=== PATIENT | female | born 1960 | race Caucasian/White ===

== ENCOUNTER 2017-03-09 16:32 | Emergency (ER) | payer MEDICARE ==
[~2017-03-09] VITALS: Ht 170.2 cm; Wt 117.9 kg
[~2017-03-09 16:32] MED LIST: ABILIFY; AC325T PO; AMLO10TA4 PO; AMLO5TAB2 PO; ARIP10TA2 PO; ARPZ10T PO; BACL20TA PO; BUPR150T7 PO; CARI250T PO; CEPH250T PO; CEPH500C PO; CHOL4PAC19 PO; CLIN-62 PO; CLON1TAB3 PO; DIAZ10TA PO; DIAZ10TA3 PO; DIPH1TAB25 PO; DOXE100C4 PO; DOXE10CA PO; DULO60CA6; FLUC100T PO; FLUV100T3 PO; GABA600T2; GBPN100C PO; GLIM4TAB PO; GLMP4T; GUAN1TAB PO; GUAN1TAB17 PO; HYDR-2890 PO; HYDR-3583 PO; HYDR-3720; HYDR-3820 PO; LORA1TAB; LORA1TAB PO; LORA2TAB PO; LOSA100T28 PO; LOSA50TA6 PO; MECL12.579 PO; MUPI22OI TOP; NAPR-243 PO; NAPR500T PO; OXCA150T3 PO; OXYC-197 PO; PIOG30TA26 PO; PRAZ5CAP2 PO; PRD20T PO; SULF-222 PO; SULF1TAB34 PO; TR1C15 TOP; TRAM50TA2 PO; TRM50T PO; VENL150T4 PO; ZLP10T; ZOLP10TA5 PO; [UNRECOGNIZED DRUG - CODE] PO
--- NOTE | 2017-03-09 17:10 | ED Integumentary General ---
General Chief Complaint: Skin/Wound Problems Stated Complaint: KNOTS ON HEAD Nursing Triage Note: TO ROOM 08 WITH COMPLAINTS OF "knots" ON HER HEAD. CAME HERE YESTERDAY BUT WE WERE TO BUSY AND SHE WENT TO [facility] AND STATES THEY DID NOTHING FOR HER. HER DAUGHTER SQUEEZED THEM AND GOT PUSS OUT OF THEM AND SHE THINKS SHE NEED AN ANTIBIOTIC. Source: patient Exam Limitations: no limitations History of Present Illness Time seen by provider: 17:09 Initial Comments 57-year-old female patient presents to the emergency department complaints of knots on her scalp. Patient reports she was seen by [facility] yesterday and was told to follow up with her primary care physician as an outpatient. Reports daughter squeezed "pus" out of them and she thinks that she may need an antibiotic at this time. Timing/Duration: other (onset 3-4 days ago. Reports symptoms improved today.) Location: scalp Possible Cause: no cause identified Allergies and Home Medications Allergies Coded Allergies: gabapentin (Unverified Allergy, Unknown, 06/03/14) morphine (Unverified Allergy, Unknown, 06/03/14) Home Medications Amlodipine Besylate 5 Mg Tablet, 5 MG PO DAILY, #30 for blood pressure Prescribed by: JEANNE COOPER on 04/21/16 1003 Baclofen 20 Mg Tablet, 20 MG PO TID PRN for MUSCLE SPASMS, (Reported) Cephalexin 500 Mg Capsule, 500 MG PO QID, #28 Prescribed by: JEANNE COOPER on 04/21/16 1003 Clindamycin HCl 300 Mg Capsule, 300 MG PO Q6H, #28 Ref 0 Prescribed by: MARK ANTHONY BENITEZ on 03/09/17 1722 Doxepin HCl 100 Mg Capsule, 200 MG PO HS, (Reported) TAKES 2 (100MG) CAPSULES Doxepin Hcl 100 Mg Capsule, 100 MG PO BID PRN for SKIN CONDITION/BP, (Reported) Fluconazole 100 Mg Tablet, 100 MG PO DAILY, #7 Prescribed by: JEANNE COOPER on 04/21/16 1003 Fluvoxamine Maleate 100 Mg Tablet, 100 MG PO HS, (Reported) Glimepiride 4 Mg Tablet, 4 MG PO BID, (Reported) Hydrocodone/Acetaminophen 1 Each Tablet, 1 TAB PO Q4H PRN for PAIN, (Reported) Lorazepam 2 Mg Tablet, 2 MG PO 5XD PRN for ANXIETY, (Reported) Losartan Potassium 100 Mg Tablet, 100 MG PO DAILY, (Reported) Naproxen 500 Mg Tablet, 500 MG PO BID, #60 Prescribed by: JEANNE COOPER on 04/21/16 1003 Pioglitazone HCl 30 Mg Tablet, 30 MG PO DAILY, (Reported) Prazosin HCl 5 Mg Capsule, 15 MG PO HS, (Reported) TAKES 3 (5MG) CAPSULES Tramadol HCl 50 Mg Tablet, 50 MG PO Q6H PRN for PAIN, (Reported) Constitutional: No chills, No fever, No malaise EENTM: no symptoms reported Respiratory: no symptoms reported Cardiovascular: no symptoms reported Skin: see HPI Psychiatric/Neurological: Denies Headache All Other Systems Reviewed Negative Unless Noted: Yes (Negative excepted noted.) Past Qqkjzjy-Vcwiku-Smcpnh Hx Patient Social History Alcohol Use: Denies Use Recreational Drug Use: No Smoking Status: Never a Smoker Recent Foreign Travel: No Contact w/Someone Who Travel: No Recent Infectious Disease Expo: No Recent Hopitalizations: Yes (GASTRIC BYPASS SURG IN [facility] 2001) Immunizations Up To Date Tetanus Booster (TDap): Unknown Date of Pneumonia Vaccine: Apr 18, 2014 Date of Influenza Vaccine: Apr 16, 2014 Seasonal Allergies Seasonal Allergies: Yes (environmental) Surgeries History of Surgeries: Yes (GASTRIC BYPASS/LEFT WRIST FX) Surgeries: Abdominal, Gallbladder, Orthopedic, Tonsillectomy Respiratory History of Respiratory Disorde: No Currently Using CPAP: No Currently Using BIPAP: No Cardiovascular History of Cardiac Disorders: Yes Cardiac Disorders: Hypertension Neurological History of Neurological Disord: Yes 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 System Hx 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 Disorders: No HIV/AIDS: No 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 Disorders: Denies 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 Genitourinary Genitourinary Disorders: UTI-Chronic Gastrointestinal History of Gastrointestinal Di: Yes (SIDE EFFECTS FROM GASTRIC BYPASS) Gastrointestinal Disorders: Gastrointestinal Bleed, Chronic Diarrhea Musculoskeletal History of Musculoskeletal Dis: Yes (lt wrist with external imobilizer hardware ) Musculoskeletal Disorders: Arthritis, Fibromyalgia Endocrine History of Endocrine Disorders: Yes Endocrine Disorders: Diabetes, Non-Insulin dep HEENT HEENT Disorders: Tinnitis Loss of Vision: Denies Hearing Impairment: Denies Cancer History of Cancer: No Cancer: Cervical Psychosocial History of Psychiatric Problem: Yes Behavioral Health Disorders: Sleep Difficulties, Anxiety, Depression Integumentary History of Skin or Integumenta: Yes (chronic skin rash) Blood Transfusions History of Blood Disorders: Yes Adverse Reaction to a Blood Tr: No Reviewed Nursing Assessment Reviewed/Agree w Nursing PMH: Yes Family Medical History Significant Family History: No Pertinent Family Hx Physical Exam Vital Signs Vital Sign - Last 12Hours 03/09/17 16:40 Temp 98.0 Pulse 80 Resp 18 B/P (MAP) 183/90 Pulse Ox 97 Capillary Refill : Less Than 3 Seconds General Appearance: WD/WN, no apparent distress HEENT: PERRL/EOMI, pharynx normal Neck: non-tender, full range of motion, supple, lymphadenopathy (L) (left postauricular lymphadenopathy with mild tenderness.) Cardiovascular: normal peripheral pulses, regular rate, rhythm, no murmur Respiratory: lungs clear, normal breath sounds, no respiratory distress, no accessory muscle use Extremities: no pedal edema, normal capillary refill Neurologic/Psychiatric: alert, normal mood/affect, oriented x 3 Skin: normal color, warm/dry, other (several hilar cysts noted of the superior scalp without evidence of open wound or drainage. Mild erythema noted.) Skin Problem Location: scalp Skin Problem Character: other (several hilar cysts noted of the superior scalp without evidence of open wound or drainage. Mild erythema noted.) Progress/Results/Core Measures Results/Orders My Orders Orders - MARK ANTHONY BENITEZ Rx-Clindamycin Capsule (Rx-Cleocin Capsu (03/09/17 17:23) Vital Signs/I&O Vital Sign - Last 12Hours 03/09/17 03/09/17 16:40 17:30 Temp 98.0 98.0 Pulse 80 80 Resp 18 18 B/P (MAP) 183/90 Pulse Ox 97 97 Blood Pressure Mean: 121 Departure Communication (Admissions) Progress Notes Patient seen and evaluated. Plan for discharge to home with oral Bactrim. Patient instructed to follow-up with her primary care physician, general surgeon , or stock sheets cleaner inspector of her choice for removal of the pilar cyst when swelling is improved. Impression Impression: Primary Impression: Pilar cysts Disposition: 01 HOME, SELF-CARE Condition: Improved Departure-Patient Inst. Decision time for Depature: 17:21 Referrals: JEANNE COOPER DO (PCP/Family) Primary Care Physician Patient Instructions: Epidermal Cyst (DC) Add. Discharge Instructions: All discharge instructions reviewed with patient and/or family. Voiced understanding. Medications as instructed. Tylenol extra strength over-the- counter as directed for pain. Ibuprofen 800 mg by mouth every 8 hours as needed for pain. Ice packs or heating pads as needed for pain and swelling. Shower with antibacterial soap. Follow-up with your primary care physician, stock sheets cleaner inspector, or general surgeon of choice for cyst removal. Call for appointment time. Return to the emergency department for worsened symptoms or any other concerns. Scripts Clindamycin HCl (Cleocin HCl) 300 Mg Capsule 300 MG PO Q6H, #28 CAP 0 Refills Prov: MARK ANTHONY BENITEZ 03/09/17 Work/School Note: Work Release Form Date Seen in the Emergency Department: Mar 09, 2017 Return to Work: Mar 10, 2017 Restrictions: No Restrictions MARK ANTHONY BENITEZ Mar 09, 2017 17:09
[2017-03-09] MEDS ORDERED: CLIN300C3 PO (17:22)
[2017-03-09] MEDS ORDERED: RX-CLINDAMYCIN 150 MG (CLEOCIN) CAP PPK#4 PO STA (17:23)
[2017-03-09 17:30] VITALS: BP 183/90
== END 2017-03-09 17:30 | disposition home or self-care (01) ==
LOC: EDUNIT# 16:32 → ER 16:34
DX: L72.11 Pilar cyst (principal); I10 Essential (primary) hypertension; M19.90 Unspecified osteoarthritis, unspecified site; E11.9 Type 2 diabetes mellitus without complications; F41.9 Anxiety disorder, unspecified; F32.9 Major depressive disorder, single episode, unspecified; Z87.19 Personal history of other diseases of the digestive system; Z87.440 Personal history of urinary (tract) infections; Z79.84 Long term (current) use of oral hypoglycemic drugs; Z98.84 Bariatric surgery status; Z90.89 Acquired absence of other organs
CPT/HCPCS: 99281

== ENCOUNTER 2018-08-02 13:31 | Inpatient (IN) | payer MEDICARE ==
[2018-07-31 18:45] VITALS: BP 175/90
[2018-08-02] VITALS (9 sets, daily range): BP systolic 118–167; BP diastolic 59–113
[~2018-08-02] VITALS: Ht 170.2 cm; Wt 114.8 kg
[2018-08-02] MEDS ORDERED: KETOROLAC 60 MG/2 ML VIAL IM ONE (13:45)
[2018-08-02] MEDS ORDERED: ORPHENADRINE 60 MG/2 ML (NORFLEX) AMP IM ONE (13:45)
[2018-08-02] MEDS ORDERED: HYDROcodone/APAP 10 MG/325 MG (LORTAB) TAB PO ONE ×3 (13:45→22:45)
--- NOTE | 2018-08-02 14:40 | Diagnostic Imaging Report ---
PROCEDURE: CT lumbar spine without contrast. TECHNIQUE: Multiple contiguous axial images were obtained through the lumbar spine without the use of intravenous contrast. Sagittal and coronal reformations were then performed. INDICATION: Back pain for two days. No recent injury. Examination somewhat limited due to the large body habitus and motion. There is normal height and alignment of the lumbar vertebral bodies. There is mild disc space narrowing at L4-L5 and L5-S1. No disc herniation or significant central canal stenosis is evident at any level. There is no mass or acute bony abnormality. There is no soft tissue mass. IMPRESSION: There are degenerative changes present with no bony stenosis seen. There is no acute abnormality evident. Dictated by: Dictated on workstation # [id number]
[2018-08-02] MEDS ORDERED: NS IV 1000 ML 1,000 ML IV SCH ×2 (15:15→20:00)
--- NOTE | 2018-08-02 15:15 | NUR ---
CALLED TO ROOM BY FAMILY PATIENT DIAPHERTIC AND CONFUSED. PLACED ON MONITOR.
[2018-08-02] MEDS ORDERED: NALOXONE 0.4 MG/ML 1 ML (NARCAN) VIAL ONE (15:24)
[2018-08-02 15:29] LABS: BASOPHILS % (AUTO) 0 % (0-10); EOSINOPHILS # (AUTO) 0.2 10^3/uL (0.0-0.3); EOSINOPHILS % (AUTO) 3 % (0-10); HEMATOCRIT 38 % (35-52); HEMOGLOBIN 12.9 G/DL (11.5-16.0); LYMPHOCYTES # (AUTO) 1.4 X 10^3 (1.0-4.0); LYMPHOCYTES % (AUTO) 27 % (12-44); MEAN CORPUSCULAR HEMOGLOBIN 28 PG (25-34); MEAN CORPUSCULAR HGB CONC 34 G/DL (32-36); MEAN CORPUSCULAR VOLUME 83 FL (80-99); MEAN PLATELET VOLUME 11.9 FL (7.4-10.4); MONOCYTES # (AUTO) 0.5 X 10^3 (0.0-1.0); MONOCYTES % (AUTO) 11 % (0-12); NEUTROPHILS # (AUTO) 2.9 X 10^3 (1.8-7.8); NEUTROPHILS % (AUTO) 58 % (42-75); PLATELET COUNT 231 10^3/uL (130-400); RED CELL DISTRIBUTION WIDTH 15.4 % (10.0-14.5); WHITE BLOOD COUNT 4.9 10^3/uL (4.3-11.0)
[2018-08-02] MEDS ORDERED: NALOXONE 0.4 MG/ML 1 ML (NARCAN) VIAL IV ONE (15:30)
[2018-08-02 15:43] LABS: ALANINE AMINOTRANSFERASE 15 U/L (0-55); ALBUMIN 4.2 GM/DL (3.2-4.5); ALKALINE PHOSPHATASE 92 U/L (40-136); BILIRUBIN,TOTAL 0.3 MG/DL (0.1-1.0); BUN/CREATININE RATIO 18; CALCIUM 9.4 MG/DL (8.5-10.1); CARBON DIOXIDE 20 MMOL/L (21-32); CHLORIDE 108 MMOL/L (98-107); CREATININE SERUM 0.87 MG/DL (0.60-1.30); GFR ESTIMATED > 60; GLUCOSE 318 MG/DL (70-105); POTASSIUM 4.2 MMOL/L (3.6-5.0); SODIUM 139 MMOL/L (135-145); TOTAL PROTEIN 6.8 GM/DL (6.4-8.2)
[2018-08-02] MEDS ORDERED: ZIPRASIDONE 20 MG INJ (GEODON) VIAL IM ONE (15:45)
--- NOTE | 2018-08-02 15:45 | NUR ---
STRAIGHT CATH FOR URINE
[2018-08-02] MEDS ORDERED: WATER (STERILE) FOR INJECTION 10 ML ONE ×2 (15:46→16:25)
[2018-08-02 15:51] LABS: ABG BASE EXCESS -4.3 MMOL/L (-2.5-2.5); ABG OXYGEN SATURATION 98 % (94-100); ABG PCO2 48 MMHG (35-45); ABG PO2 120 MMHG (79-93); ABG TCO2 23.2 MMOL/L (21.0-31.0)
[2018-08-02] MEDS ORDERED: ONDANSETRON 4 MG/2 ML (SDV) Z0FRAN ONE (15:53)
[2018-08-02 15:55] LABS: ABG PH 7.27 (7.37-7.43); ALLENS TEST YES-POS; INSPIRED O2 4; PATIENT TEMP 96.9; VENTILATOR NO
--- NOTE | 2018-08-02 15:58 | NUR ---
AFTER NARCAN GIVEN EYES OPENS AND CON'T TO ASK WHAT IS GOING ON CON'T TO REPEAT.
--- NOTE | 2018-08-02 15:59 | NUR ---
ROSA GIVEN FOR FEELING LIKE SHE MAY VOMIT
[2018-08-02 16:03] LABS: BILIRUBIN,URINE NEGATIVE (NEGATIVE); CLARITY,URINE CLEAR; COLOR,URINE YELLOW; GLUCOSE, URINE (UA) 4+ (NEGATIVE); KETONES,URINE NEGATIVE (NEGATIVE); LEUKOCYTE ESTERASE ,URINE NEGATIVE (NEGATIVE); NITRITE,URINE NEGATIVE (NEGATIVE); PH,URINE 5 (5-9); PROTEIN,URINE 2+ (NEGATIVE); UROBILINOGEN,URINE NORMAL (NORMAL)
[2018-08-02 16:16] LABS: AMPHETAMINE SCREEN, URINE NEGATIVE (NEGATIVE); BARBITURATE SCREEN URINE NEGATIVE (NEGATIVE); BENZODIAZEPINES SCREEN URINE POSITIVE (NEGATIVE); CANNABINOID SCREEN, URINE NEGATIVE (NEGATIVE); COCAINE SCREEN URINE NEGATIVE (NEGATIVE); METHADONE STAT NEGATIVE (NEGATIVE); METHAMPHETAMINE SCREEN URINE S NEGATIVE (NEGATIVE); OPIATE SCREEN URINE POSITIVE (NEGATIVE); OXYCODONE STAT NEGATIVE (NEGATIVE); PROPOXYPHENE STAT NEGATIVE (NEGATIVE); TRICYCLIC ANTIDEPRESSANTS SCRE POSITIVE (NEGATIVE)
--- NOTE | 2018-08-02 16:22 | NUR ---
TO CT PER CART ACCOMPIED BY STAFF
--- NOTE | 2018-08-02 16:30 | NUR ---
CON'T TO RESTLESS IN CT MORE YESSENIA ORDERD
[2018-08-02] MEDS: ZIPRASIDONE 20 MG INJ (GEODON) VIAL IM ONE (16:35)
[2018-08-02 16:40] LABS: BACTERIA,URINE NEGATIVE /HPF; RBC,URINE RARE /HPF; SQUAMOUS EPITHELIAL CELL,UR 0-2 /HPF
--- NOTE | 2018-08-02 16:45 | NUR ---
BACK FROM CT DAUGHTER AT BEDSIDE PATIENT RELAXED APPEARS RESTING NOW HR 61 97% 4L 133/76
--- NOTE | 2018-08-02 16:56 | ED Back Pain ---
General Chief Complaint: Back Problems Stated Complaint: BACK PAIN Nursing Triage Note: TO ED PER EMS C/O SEVER BACK PAIN Nursing Sepsis Screen: No Definite Risk Source of Information: Patient Exam Limitations: No Limitations History of Present Illness Date Seen by Provider: Aug 02, 2018 Time Seen by Provider: 13:38 Initial Comments 58-year-old female who was brought to the emergency room by [facility] for complaints of severe low back pain that radiates to her right leg. She reports that this pain started 2 days ago and has progressively gotten worse. She reports that she's had bulging disc the past and sciatica and reports it just feels like sciatic nerve patient. She is on baclofen for chronic low back pain. She reports taking Tylenol and ibuprofen without relief. She was able to stand up from the EMS cart and transferred to the bed without difficulty. She denies loss of bowel or bladder or saddle paresthesia. She is yelling out in pain. Location: Lumbar Spine Timing/Duration: 1-2 Days Severity: Severe Pain/Injury Location: Back Radiation: Upper Legs (right upper legs) Associated Symptoms: lower back pain; No loss of bladder control, No loss of bowel control Allergies and Home Medications Allergies Coded Allergies: gabapentin (Unverified Allergy, Unknown, 06/03/14) morphine (Unverified Allergy, Unknown, 06/03/14) Home Medications Amlodipine Besylate 5 Mg Tablet, 5 MG PO DAILY for blood pressure Prescribed by: JEANNE COOPER on 04/21/16 1003 Baclofen 20 Mg Tablet, 20 MG PO TID PRN for MUSCLE SPASMS, (Reported) Cephalexin 500 Mg Capsule, 500 MG PO QID Prescribed by: JEANNE COOPER on 04/21/16 1003 Clindamycin HCl 300 Mg Capsule, 300 MG PO Q6H Prescribed by: MARK ANTHONY BENITEZ on 03/09/17 1722 Doxepin HCl 100 Mg Capsule, 200 MG PO HS, (Reported) TAKES 2 (100MG) CAPSULES Doxepin Hcl 100 Mg Capsule, 100 MG PO BID PRN for SKIN CONDITION/BP, (Reported) Fluconazole 100 Mg Tablet, 100 MG PO DAILY Prescribed by: JEANNE COOPER on 04/21/16 1003 Fluvoxamine Maleate 100 Mg Tablet, 100 MG PO HS, (Reported) Glimepiride 4 Mg Tablet, 4 MG PO BID, (Reported) Hydrocodone/Acetaminophen 1 Each Tablet, 1 TAB PO Q4H PRN for PAIN, (Reported) Lorazepam 2 Mg Tablet, 2 MG PO 5XD PRN for ANXIETY, (Reported) Losartan Potassium 100 Mg Tablet, 100 MG PO DAILY, (Reported) Naproxen 500 Mg Tablet, 500 MG PO BID Prescribed by: JEANNE COOPER on 04/21/16 1003 Pioglitazone HCl 30 Mg Tablet, 30 MG PO DAILY, (Reported) Prazosin HCl 5 Mg Capsule, 15 MG PO HS, (Reported) TAKES 3 (5MG) CAPSULES Tramadol HCl 50 Mg Tablet, 50 MG PO Q6H PRN for PAIN, (Reported) Patient Home Medication List Home Medication List Reviewed: Yes Review of Systems Constitutional: no symptoms reported, see HPI Musculoskeletal: see HPI, back pain (low back pain) All Other Systems Reviewed Negative Unless Noted: Yes Past Fqnsotj-Zmmopg-Gosleu Hx Past Med/Social Hx: Reviewed Nursing Past Med/Soc Hx Patient Social History Alcohol Use: Denies Use Recreational Drug Use: Yes (METHAMPHETAMINES --DENIES IV USE) Smoking Status: Never a Smoker Recent Foreign Travel: No Contact w/Someone Who Travel: No Recent Infectious Disease Expo: No Recent Hopitalizations: Yes (GASTRIC BYPASS SURG IN [facility] 2001) Immunizations Up To Date Tetanus Booster (TDap): Unknown Date of Pneumonia Vaccine: Apr 18, 2014 Date of Influenza Vaccine: Apr 16, 2014 Seasonal Allergies Seasonal Allergies: Yes (environmental) Past Medical History Surgeries: Yes (GASTRIC BYPASS/LEFT WRIST FX) Abdominal, Gallbladder, Orthopedic, Tonsillectomy Respiratory: No Currently Using CPAP: No Currently Using BIPAP: No Cardiac: Yes Hypertension Neurological: Yes 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 Disorders: No 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 HIV/AIDS: No UTI-Chronic Gastrointestinal: Yes (SIDE EFFECTS FROM GASTRIC BYPASS) Gastrointestinal Bleed, Chronic Diarrhea Musculoskeletal: Yes (lt wrist with external imobilizer hardware) Arthritis, Fibromyalgia Endocrine: Yes Diabetes, Non-Insulin dep Tinnitis Loss of Vision: Denies Hearing Impairment: Denies Cancer: No Cervical Psychosocial: Yes Sleep Difficulties, Anxiety, Depression Integumentary: Yes (chronic skin rash) Blood Disorders: Yes Adverse Reaction/Blood Tranf: No Family Medical History Reviewed Nursing Family Hx No Pertinent Family Hx Physical Exam Vital Signs Vital Signs - First Documented 07/31/18 08/02/18 18:45 15:24 Temp 96.6 Pulse 86 Resp 20 B/P (MAP) 175/90 (118) Pulse Ox 96 O2 Delivery Room Air O2 Flow Rate 4.00 Capillary Refill : Less Than 3 Seconds Height, Weight, BMI Height: 5'7.00" Weight: 245lbs. 8.0oz. 111.464226en; 40.3 BMI Method:Stated General Appearance: No Apparent Distress, WD/WN Cardiovascular: Regular Rate, Rhythm, No Edema, No Gallop, No JVD, No Murmur, Normal Peripheral Pulses Respiratory: Chest Non Tender, Lungs Clear, Normal Breath Sounds, No Accessory Muscle Use, No Respiratory Distress Back: Normal Inspection, No CVA Tenderness, Vertebral Tenderness (lumbar vertebral tenderness) Extremity: Normal Capillary Refill, Normal Inspection, Normal Range of Motion, Non Tender, No Calf Tenderness, No Pedal Edema, Calf Tenderness Neurologic/Psychiatric: Alert, Oriented x3, Normal Mood/Affect Skin: Normal Color, Warm/Dry Progress/Results/Core Measures Results/Orders Lab Results Laboratory Tests Test 08/02/18 15:14 08/02/18 15:34 08/02/18 15:48 Range/Units White Blood Count 4.9 4.3-11.0 10^3/uL Red Blood Count 4.62 4.35-5.85 10^6/uL Hemoglobin 12.9 11.5-16.0 G/DL Hematocrit 38 35-52 % Mean Corpuscular Volume 83 80-99 FL Mean Corpuscular Hemoglobin 28 25-34 PG Mean Corpuscular Hemoglobin Concent 34 32-36 G/DL Red Cell Distribution Width 15.4 H 10.0-14.5 % Platelet Count 231 130-400 10^3/uL Mean Platelet Volume 11.9 H 7.4-10.4 FL Neutrophils (%) (Auto) 58 42-75 % Lymphocytes (%) (Auto) 27 12-44 % Monocytes (%) (Auto) 11 0-12 % Eosinophils (%) (Auto) 3 0-10 % Basophils (%) (Auto) 0 0-10 % Neutrophils # (Auto) 2.9 1.8-7.8 X 10^3 Lymphocytes # (Auto) 1.4 1.0-4.0 X 10^3 Monocytes # (Auto) 0.5 0.0-1.0 X 10^3 Eosinophils # (Auto) 0.2 0.0-0.3 10^3/uL Basophils # (Auto) 0.0 0.0-0.1 10^3/uL Sodium Level 139 135-145 MMOL/L Potassium Level 4.2 3.6-5.0 MMOL/L Chloride Level 108 H 98-107 MMOL/L Carbon Dioxide Level 20 L 21-32 MMOL/L Anion Gap 11 5-14 MMOL/L Blood Urea Nitrogen 16 7-18 MG/DL Creatinine 0.87 0.60-1.30 MG/DL Estimat Glomerular Filtration Rate > 60 BUN/Creatinine Ratio 18 Glucose Level 318 H 70-105 MG/DL Calcium Level 9.4 8.5-10.1 MG/DL Corrected Calcium 9.2 8.5-10.1 MG/DL Total Bilirubin 0.3 0.1-1.0 MG/DL Aspartate Amino Transf (AST/SGOT) 19 5-34 U/L Alanine Aminotransferase (ALT/SGPT) 15 0-55 U/L Alkaline Phosphatase 92 40-136 U/L Total Protein 6.8 6.4-8.2 GM/DL Albumin 4.2 3.2-4.5 GM/DL Blood Gas Puncture Site RT RADIAL Blood Gas Patient Temperature 96.9 Arterial Blood pH 7.27 *L 7.37-7.43 Arterial Blood Partial Pressure CO2 48 H 35-45 MMHG Arterial Blood Partial Pressure O2 120 H 79-93 MMHG Arterial Blood HCO3 22 L 23-27 MMOL/L Arterial Blood Total CO2 23.2 21.0-31.0 MMOL/L Arterial Blood Oxygen Saturation 98 94-100 % Arterial Blood Base Excess -4.3 L -2.5-2.5 MMOL/L Luis A Test YES-POS Blood Gas Ventilator Setting NO Blood Gas Inspired Oxygen 4 Urine Color YELLOW Urine Clarity CLEAR Urine pH 5 5-9 Urine Specific [place] 1.020 1.016-1.022 Urine Protein 2+ H NEGATIVE Urine Glucose (UA) 4+ H NEGATIVE Urine Ketones NEGATIVE NEGATIVE Urine Nitrite NEGATIVE NEGATIVE Urine Bilirubin NEGATIVE NEGATIVE Urine Urobilinogen NORMAL NORMAL MG/DL Urine Leukocyte Esterase NEGATIVE NEGATIVE Urine RBC (Auto) 1+ H NEGATIVE Urine RBC RARE /HPF Urine WBC NONE /HPF Urine Squamous Epithelial Cells 0-2 /HPF Urine Crystals NONE /LPF Urine Bacteria NEGATIVE /HPF Urine Casts NONE /LPF Urine Mucus NEGATIVE /LPF Urine Culture Indicated NO Urine Opiates Screen POSITIVE H NEGATIVE Urine Oxycodone Screen NEGATIVE NEGATIVE Urine Methadone Screen NEGATIVE NEGATIVE Urine Propoxyphene Screen NEGATIVE NEGATIVE Urine Barbiturates Screen NEGATIVE NEGATIVE Ur Tricyclic Antidepressants Screen POSITIVE H NEGATIVE Urine Phencyclidine Screen NEGATIVE NEGATIVE Urine Amphetamines Screen NEGATIVE NEGATIVE Urine Methamphetamines Screen NEGATIVE NEGATIVE Urine Benzodiazepines Screen POSITIVE H NEGATIVE Urine Cocaine Screen NEGATIVE NEGATIVE Urine Cannabinoids Screen NEGATIVE NEGATIVE My Orders Orders - BERNOT,RACH Orphenadrine Injection (Norflex Injectio (08/02/18 13:45) Ketorolac Injection (Toradol Injection) (08/02/18 13:45) Hydrocodone/Apap 10/325 Tablet (Lortab 1 (08/02/18 13:45) Ct Lumbar Spine Wo (08/02/18 13:39) Ns Iv 1000 Ml (Sodium Chloride 0.9%) (08/02/18 15:15) Cbc With Automated Diff (08/02/18 15:05) Comprehensive Metabolic Panel (08/02/18 15:05) Drug Screen Stat (Urine) (08/02/18 15:05) Ua Culture If Indicated (08/02/18 15:05) Ekg Tracing (08/02/18 15:15) Naloxone Injection (Narcan Injection) (08/02/18 15:30) Naloxone Injection (Narcan Injection) (08/02/18 15:24) Arterial Blood Gas (08/02/18 15:33) Ct Head Wo-R/O Stroke (08/02/18 15:38) Ziprasidone Injection (Geodon Injection) (08/02/18 15:45) Water (Sterile) For Injection (Sterile W (08/02/18 15:46) Ondansetron Injection (Zofran Injectio (08/02/18 15:53) Ziprasidone Injection (Geodon Injection) (08/02/18 16:24) Water (Sterile) For Injection (Sterile W (08/02/18 16:25) Medications Given in ED Current Medications Medications Dose Ordered Sig/Raquel Route Start Time Stop Time Status Last Admin Dose Admin Naloxone HCl 0.4 mg ONCE ONCE IV 08/02/18 15:30 08/02/18 15:31 DC 08/02/18 15:30 0.4 MG Ondansetron HCl 4 mg STK-MED ONCE .ROUTE 08/02/18 15:53 08/02/18 15:58 DC 08/02/18 16:01 8 MG Sterile Water 10 ml @ ud STK-MED ONCE .ROUTE 08/02/18 15:46 08/02/18 15:50 DC 08/02/18 15:55 1.2 MLS/HR Ziprasidone 20 mg STK-MED ONCE IM 08/02/18 15:45 08/02/18 15:50 DC 08/02/18 15:53 10 MG Ziprasidone 20 mg STK-MED ONCE IM 08/02/18 16:24 08/02/18 16:29 DC 08/02/18 16:35 20 MG Vital Signs/I&O 07/31/18 08/02/18 08/02/18 18:45 14:59 15:24 Temp 96.6 96.9 Pulse 86 81 60 Resp 20 18 18 B/P (MAP) 175/90 (118) 119/87 (98) 135/65 (88) Pulse Ox 96 98 100 O2 Delivery Room Air Room Air Nasal Cannula O2 Flow Rate 4.00 Blood Pressure Mean: 88 Progress Progress Note : Time: 13:38 Progress Note Hydrocodone, Toradol, Norflex was ordered at this time. 1520: The patient is back from CT at this time. She is hard to arouse and is having sonorous respirations. IV, lab work urine drug screen has been ordered at this time. She will also be given Narcan to see if we can reverse anything she might have taken at home. Daughter is at bedside and reports that she's had a long history of opioid use but has not been prescribed anything for at least 6 months that she knows of. She is currently only on baclofen for her chronic back pain and lorazepam, fluvoxamine, clonidine for her anxiety. She has history of diabetes and is on pioglitazone. 1545: The Narcan has seemed to work. The patient is awake at this time and she is thrashing violently in bed and pulling at IV lines a monitoring equipment. Geodon has been ordered at this time and we will also be getting the patient over to CT for images of her head. 1715: I have discussed the case with Dr. Barney at this time and she agrees to admit the patient to ICU for closer observation. Diagnostic Imaging Diagonstic Imaging: CT Plain Films/CT/US/NM/MRI: head, other (l spine) Comments NAME: SAMGERONIMO [facility] REC#: [id number] PHYSICIAN: RACH BAEZ CC: RACH BAEZ; CAROL ELLIS DO Page 2 of 2 RADIOLOGY REPORT [facility], [place], [place] CC: RACH BAEZ; CAROL ELLIS DO Page 1 of 1 RADIOLOGY REPORT NAME: GERONIMO VARGAS [facility] REC#: [id number] PT STATUS: REG ER : 1960 PHYSICIAN: RACH BAEZ ADMIT DATE: 08/02/18/ER Signed Date of Exam: 08/02/18 CT HEAD WO-R/O STROKE PROCEDURE: CT head wo r/o stroke. TECHNIQUE: Multiple contiguous axial images were obtained through the brain without the use of intravenous contrast. INDICATION: Altered mental status. COMPARISON: Head CT performed on 08/22/2012. FINDINGS: BRAIN: No parenchymal hemorrhage, midline shift or mass effect. [place]-white matter differentiation is intact. No acute infarct. Mild periventricular and subcortical low-density white matter changes. Mild prominence of the ventricles and Sulci consistent with cortical and cerebellar parenchymal volume loss. EXTRA-AXIAL SPACES: No subdural or epidural collections. ORBITS AND PARANASAL SINUSES: Visualized orbits and globes are intact. Visualized paranasal sinuses and mastoid air cells are clear. CALVARIUM AND SOFT TISSUES: The calvarium is intact. No fractures or suspicious bony lesions. The extracranial soft tissues are unremarkable. IMPRESSION: No acute intracranial pathology. No significant change from prior. Dictated by: Dictated on workstation # [id number] Dict: 08/02/181653 Trans: 08/02/181727 Interpreted by: CAROL ELLIS DO Electronically signed by: CAROL ELLIS DO 08/02/181727 NAME: GERONIMO VARGAS [facility] REC#: [id number] PHYSICIAN: RACH BAEZ CC: RACH BAEZ; JOCELINE BUTT MD Page 1 of 1 RADIOLOGY REPORT [facility], [place] CC: RACH BAEZ; JOCELINE BUTT MD Page 1 of 1 RADIOLOGY REPORT NAME: GERONIMO VARGAS [facility] REC#: [id number] PT STATUS: REG ER : 1960 PHYSICIAN: RACH BAEZ MINE PATROL ADMIT DATE: 08/02/18/ER Signed Date of Exam: 08/02/18 CT LUMBAR SPINE WO PROCEDURE: CT lumbar spine without contrast. TECHNIQUE: Multiple contiguous axial images were obtained through the lumbar spine without the use of intravenous contrast. Sagittal and coronal reformations were then performed. INDICATION: Back pain for two days. No recent injury. Examination somewhat limited due to the large body habitus and motion. There is normal height and alignment of the lumbar vertebral bodies. There is mild disc space narrowing at L4-L5 and L5-S1. No disc herniation or significant central canal stenosis is evident at any level. There is no mass or acute bony abnormality. There is no soft tissue mass. IMPRESSION: There are degenerative changes present with no bony stenosis seen. There is no acute abnormality evident. Dictated by: Dictated on workstation # [id number] Dict: 08/02/18 1434 Trans: 08/02/18 1500 Interpreted by: JOCELINE BUTT MD Electronically signed by: JOCELINE BUTT MD 08/02/18 1500 Reviewed: Reviewed by Me Departure Communication (Admissions) Time/Spoke to Admitting Phy: 17:15 Barney Impression Primary Impression: Chronic low back pain with right-sided sciatica Additional Impression: Altered mental status Disposition: ADMITTED INPATIENT Condition: Stable/Unchanged Admissions Decision to Admit Reason: Admit from ER (General) Decision to Admit/Date: Aug 02, 2018 Time/Decision to Admit Time: 17:42 Departure-Patient Inst. Referrals: JEANNE COOPER DO (PCP/Family) Primary Care Physician RACH BAEZ Aug 02, 2018 16:56
--- NOTE | 2018-08-02 17:11 | Diagnostic Imaging Report ---
PROCEDURE: CT head wo r/o stroke. TECHNIQUE: Multiple contiguous axial images were obtained through the brain without the use of intravenous contrast. INDICATION: Altered mental status. COMPARISON: Head CT performed on 08/22/2012. FINDINGS: BRAIN: No parenchymal hemorrhage, midline shift or mass effect. Moctezuma-white matter differentiation is intact. No acute infarct. Mild periventricular and subcortical low-density white matter changes. Mild prominence of the ventricles and Sulci consistent with cortical and cerebellar parenchymal volume loss. EXTRA-AXIAL SPACES: No subdural or epidural collections. ORBITS AND PARANASAL SINUSES: Visualized orbits and globes are intact. Visualized paranasal sinuses and mastoid air cells are clear. CALVARIUM AND SOFT TISSUES: The calvarium is intact. No fractures or suspicious bony lesions. The extracranial soft tissues are unremarkable. IMPRESSION: No acute intracranial pathology. No significant change from prior. Dictated by: Dictated on workstation # [id number]
--- OUTSIDE RECORDS SUMMARY | 2018-08-02 17:50 | XMS REPORT ---
Author Author GERTRUDEJANELLEMILES Organization [facility] [address] Address [address] [place] [address] Care Team Providers Care Bryologist Name Role Phone JR LOREDO Unavailable PROBLEMS Type Condition ICD9-CM Code VLV40-XV Code Onset Dates Condition Status SNOMED Code Problem High risk medication use Z79.899 Active 203085852 Problem Moderate episode of recurrent major depressive disorder F33.1 Active 203005270 Problem Panic disorder without agoraphobia F41.0 Active 11034610 Problem Benzodiazepine abuse F13.10 Active 821578772 Problem Mixed obsessional thoughts and acts F42.2 Active 901216972 Problem Psychophysiological insomnia F51.04 Active 324430709 Problem Chronic post-traumatic stress disorder (PTSD) F43.12 Active 05972073 ALLERGIES No Information ENCOUNTERS Encounter Location Date Diagnosis [place] [address] [address] Jun, [facility] [address] [address] Apr, Mixed obsessional thoughts and acts F42.2 [place] [address] [address] Mar, [place] [address] [address] Mar, [facility] [address] [place] [address] Feb, [place] [address] [address] Feb, Benzodiazepine abuse F13.10 ; Panic disorder without agoraphobia F41.0 ; Chronic post-traumatic stress disorder (PTSD) F43.12 ; Mixed obsessional thoughts and acts F42.2 and BMI 40.0-44.9, adult Z68.41 [facility] [address] [place] [address] Jan, [facility] [address] [place] [id number] [place] [address] 40567- 1110 Dec, Mixed obsessional thoughts and acts F42.2 [place] [address] [place] [id number] [place] [address] 80284- 6360 13 Nov, 2017 Benzodiazepine abuse F13.10 ; Panic disorder without agoraphobia F41.0 ; Chronic post-traumatic stress disorder (PTSD) F43.12 ; Mixed obsessional thoughts and acts F42.2 and BMI 40.0-44.9, adult Z68.41 [place] [address] [place] [id number] [place] [address] 99607[address] 5[address] 28 Jul, 2017 Benzodiazepine abuse F13.10 ; Panic disorder without agoraphobia F41.0 ; Chronic post-traumatic stress disorder (PTSD) F43.12 ; Mixed obsessional thoughts and acts F42.2 and BMI 40.0-44.9, adult Z68.41 [place] [address] [place] [id number] [place] [address] 22634[address] 2368 May, [place] [address] [place] [id number] [place] [address] 98112- 7854 May, Panic disorder without agoraphobia F41.0 [place] [address] [place] [id number] [place] [address] 57344- 4251 Apr, [place] [address] [place] [id number] [place] [address] 36845- 10[address] Apr, Benzodiazepine abuse F13.10 ; Panic disorder without agoraphobia F41.0 ; Chronic post-traumatic stress disorder (PTSD) F43.12 ; Mixed obsessional thoughts and acts F42.2 and BMI 40.0-44.9, adult Z68.41 [place] [address] [place] [id number] [place] [address] 08351[address] 0385 Mar, Benzodiazepine abuse F13.10 [facility] [address] [place] [address] 54362- 5984 Mar, Benzodiazepine abuse F13.10 [facility] [address] [place] [address] 45943- 45[address] Jan, Benzodiazepine abuse F13.10 ; High risk medication use Z79.899 ; Moderate episode of recurrent major depressive disorder F33.1 and Mixed obsessional thoughts and acts F42.2 [place] [address] [place] [id number] [place] [address] 45083- 9393 Jan, Benzodiazepine abuse F13.10 [place] [address] [place] [id number] [place] [address] 90834- 9612 Dec, Benzodiazepine abuse F13.10 and High risk medication use Z79.[address] [facility] [address] [place] [address] Nov, Mixed obsessional thoughts and acts F42.2 [place] [address] [place] [id number] [place] [address] 16301- 4994 Nov, Panic disorder without agoraphobia F41.0 ; Chronic post- traumatic stress disorder (PTSD) F43.12 ; Mixed obsessional thoughts and acts F42.2 ; Psychophysiological insomnia F51.04 ; High risk medication use Z79.899 and Benzodiazepine abuse F13.10 [place] [address] [place] [address] 08304- 7041 October, [facility] [address] [place] [id number] [place] [address] 04084- 6351 October, Benzodiazepine abuse F13.10 [facility] [address] [place] [id number] [place] [id number] October, Dental examination Z01.20 [place] [address] [place] [id number] [place] [address] 94005- 5893 October, [place] [address] [place] [id number] [place] [address] 32581- 0022 Sep, Panic disorder without agoraphobia F41.0 ; Chronic post- traumatic stress disorder (PTSD) F43.12 ; Mixed obsessional thoughts and acts F42.2 ; Psychophysiological insomnia F51.04 ; High risk medication use Z79.899 and Benzodiazepine abuse F13.10 [facility] [address] [place] [id number] [id number] 18 Sep, 2016 Dental examination Z01.20 [facility] [address] [address] 17 Sep, 2016 Panic disorder without agoraphobia F41.0 [facility] [place] [address] [place] [address] Aug, Other manager erp (current) drug therapy Z79.899 [facility] [address] [place] [address] Aug, [facility] [address] [place] [address] 00267- 2662 14 Aug, 2016 Mixed obsessional thoughts and acts F42.2 ; Panic disorder without agoraphobia F41.0 ; Chronic post-traumatic stress disorder (PTSD) F43.12 and Other manager erp (current) drug therapy Z79.899 IMMUNIZATIONS No Known Immunizations SOCIAL HISTORY Never Assessed REASON FOR VISIT medication PLAN OF CARE VITAL SIGNS MEDICATIONS Medication Instructions Dosage Frequency Start Date End Date Duration Status BuPROPion HCl ER (XL) 150 MG Orally Once a day 1 tablet in the morning 24h Nov, 30 day(s) Active RESULTS No Results PROCEDURES No Known procedures INSTRUCTIONS MEDICATIONS ADMINISTERED No Known Medications MEDICAL (GENERAL) HISTORY Type Description Date Medical History Arthritis Medical History Cervical Disc Disorder Medical History Cervicalgia Medical History Diabetes Medical History Gastrointestinal Disorder Medical History Hypertension Medical History Major Depressive Disorder moderate with anxious distress Medical History Obesity Medical History Obessive Compulsive Disorder Medical History PTSD Medical History Seasonal allergies Medical History Anemia Medical History Generalized Anxiety Disorder Surgical History Cervical epidural steroid injection 01/29/2016 Surgical History Cervical epidural steroid injection 11/20/2015 Surgical History Gastric Bypass 2012 Surgical History Cholecystectomy Surgical History Endometrial ablation Surgical History Sinus surgery Surgical History Tonsilectomy and adnoidectomy Surgical History Wrist surgery x 2 Hospitalization History Surgery
--- OUTSIDE RECORDS SUMMARY | 2018-08-02 17:50 | XMS REPORT ---
Author Author GERTRUDEJANELLEMILES Organization [facility] [address] Address [address] [place] [address] Care Team Providers Care Clay Structure Builder And Servicer Name Role Phone JR LOREDO Unavailable PROBLEMS Type Condition ICD9-CM Code EGL00-DH Code Onset Dates Condition Status SNOMED Code Problem High risk medication use Z79.899 Active 042966014 Problem Moderate episode of recurrent major depressive disorder F33.1 Active 474879658 Problem Panic disorder without agoraphobia F41.0 Active 00476217 Problem Benzodiazepine abuse F13.10 Active 506175704 Problem Mixed obsessional thoughts and acts F42.2 Active 588770830 Problem Psychophysiological insomnia F51.04 Active 437094759 Problem Chronic post-traumatic stress disorder (PTSD) F43.12 Active 19734653 ALLERGIES No Information ENCOUNTERS Encounter Location Date Diagnosis [place] [address] [address] May, [facility] [address] [place] [address] Feb, [place] [address] [address] Feb, Benzodiazepine abuse F13.10 ; Panic disorder without agoraphobia F41.0 ; Chronic post-traumatic stress disorder (PTSD) F43.12 ; Mixed obsessional thoughts and acts F42.2 and BMI 40.0-44.9, adult Z68.41 [place] [address] [address] Jan, [place] [address] [address] Dec, Mixed obsessional thoughts and acts F42.2 [place] [address] [place] [address] Nov, Benzodiazepine abuse F13.10 ; Panic disorder without agoraphobia F41.0 ; Chronic post-traumatic stress disorder (PTSD) F43.12 ; Mixed obsessional thoughts and acts F42.2 and BMI 40.0-44.9, adult Z68.41 [place] [address] [place] [id number] [place] [address] 28 Jul, 2017 Benzodiazepine abuse F13.10 ; Panic disorder without agoraphobia F41.0 ; Chronic post-traumatic stress disorder (PTSD) F43.12 ; Mixed obsessional thoughts and acts F42.2 and BMI 40.0-44.9, adult Z68.41 [place] [address] [place] [id number] [place] [address]- 78[address] May, [place] [address] [place] [id number] [place] [address]- 0[address] May, Panic disorder without agoraphobia F41.0 [place] [address] [place] [id number] [place] [address]- 3[address] Apr, [place] [address] [place] [id number] [place] [address] 211[address]- 0595 Apr, Benzodiazepine abuse F13.10 ; Panic disorder without agoraphobia F41.0 ; Chronic post-traumatic stress disorder (PTSD) F43.12 ; Mixed obsessional thoughts and acts F42.2 and BMI 40.0-44.9, adult Z68.41 [place] [address] [place] [address]- 3[address] Mar, Benzodiazepine abuse F13.10 [place] [address] [place] [id number] [place] [address] 03798- 69[address] Mar, Benzodiazepine abuse F13.10 [place] [address] [place] [address] 72420- 9548 Jan, Benzodiazepine abuse F13.10 ; High risk medication use Z79.899 ; Moderate episode of recurrent major depressive disorder F33.1 and Mixed obsessional thoughts and acts F42.2 [facility] [address] [address] Jan, Benzodiazepine abuse F13.10 [facility] [address] [place] [address] 61410- 4350 Dec, Benzodiazepine abuse F13.10 and High risk medication use Z79.899 [facility] [address] [place] [address] Nov, Mixed obsessional thoughts and acts F42.2 [facility] [address] [place] [address] 00006- 8402 Nov, Panic disorder without agoraphobia F41.0 ; Chronic post- traumatic stress disorder (PTSD) F43.12 ; Mixed obsessional thoughts and acts F42.2 ; Psychophysiological insomnia F51.04 ; High risk medication use Z79.899 and Benzodiazepine abuse F13.10 [facility] [address] [place] [id number] [place] [address] 31703- 2435 October, [facility] [address] [place] [id number] [place] [address] 97411- 6373 October, Benzodiazepine abuse F13.10 [facility] [address] [place] [id number] [place] [id number] October, Dental examination Z01.20 [place] [address] [place] [address] 12386- 1466 October, [facility] [address] [place] [address] 22740- 1502 Sep, Panic disorder without agoraphobia F41.0 ; Chronic post- traumatic stress disorder (PTSD) F43.12 ; Mixed obsessional thoughts and acts F42.2 ; Psychophysiological insomnia F51.04 ; High risk medication use Z79.899 and Benzodiazepine abuse F13.10 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 Z79.899 [facility] [address] [place] [address] 31 Aug, 2016 [facility] [address] [facility] [id number] [address] 14 Aug, 2016 Mixed obsessional thoughts and acts F42.2 ; Panic disorder without agoraphobia F41.0 ; Chronic post-traumatic stress disorder (PTSD) F43.12 and Other residential (current) drug therapy Z79.899 IMMUNIZATIONS No Known Immunizations SOCIAL HISTORY Never Assessed REASON FOR VISIT PLAN OF CARE VITAL SIGNS MEDICATIONS Unknown Medications RESULTS No Results PROCEDURES No Known procedures [...] steroid injection 11/20/2015 Surgical History Gastric Bypass 2011 Surgical History Cholecystectomy Surgical History Endometrial ablation Surgical History Sinus surgery Surgical History Tonsilectomy and adnoidectomy Surgical History Wrist surgery x 2 Hospitalization History Surgery
--- NOTE | 2018-08-02 17:51 | NUR ---
REPORT GIVEN NURSE WILL CALL WHEN READY HAD TO TRANSFER PT TO FLOOR. Addendum: 08/02/18 at 1857 by PMCCLURE WHEN REPORT GIVEN INFORMED PATIENT HAS UNKNOWN RASH Elizabeth BAEZ APRN AWARE OF.
--- OUTSIDE RECORDS SUMMARY | 2018-08-02 17:51 | XMS REPORT ---
Author Author JR LOREDO [facility] Address [address] [place] [address] Care Team Providers Care Ecclesiastical Worker Name Role Phone JR LOREDO Unavailable PROBLEMS Type Condition ICD9-CM Code QHA48-HA Code Onset Dates Condition Status SNOMED Code Problem High risk medication use Z79.899 Active 771650874 Problem Moderate episode of recurrent major depressive disorder F33.1 Active 056746954 Problem Panic disorder without agoraphobia F41.0 Active 41264496 Problem Benzodiazepine abuse F13.10 Active 220256300 Problem Mixed obsessional thoughts and acts F42.2 Active 194375649 Problem Psychophysiological insomnia F51.04 Active 832645146 Problem Chronic post-traumatic stress disorder (PTSD) F43.12 Active 03915714 ALLERGIES No Information ENCOUNTERS Encounter Location Date Diagnosis [place] [address] [place] [id number] [place] [address] October, [place] [address] [place] [id number] [place] [address] 02816- 2887 Jul, Benzodiazepine abuse F13.10 ; Panic disorder without agoraphobia F41.0 ; Chronic post-traumatic stress disorder (PTSD) F43.12 ; Mixed obsessional thoughts and acts F42.2 and BMI 40.0-44.9, adult Z68.41 [place] [address] [place] [address] 39429- 7796 May, [place] [address] [place] [id number] [place] [address] 67813- 9674 May, Panic disorder without agoraphobia F41.0 [place] [address] [place] [id number] [place] [address] 60717- 4374 Apr, [place] [address] [address] Apr, Benzodiazepine abuse F13.10 ; Panic disorder without agoraphobia F41.0 ; Chronic post-traumatic stress disorder (PTSD) F43.12 ; Mixed obsessional thoughts and acts F42.2 and BMI 40.0-44.9, adult Z68.41 [place] [address] [place] [address] 66182- 7795 Mar, Benzodiazepine abuse F13.10 [place] [address] [place] [id number] [place] [address] 32982- 4933 Mar, Benzodiazepine abuse F13.10 [place] [address] [place] [id number] [place] [address] 05662- 6207 Jan, Benzodiazepine abuse F13.10 ; High risk medication use Z79.899 ; Moderate episode of recurrent major depressive disorder F33.1 and Mixed obsessional thoughts and acts F42.2 [place] [address] [place] [address] 46885- 2902 Jan, Benzodiazepine abuse F13.10 [place] [address] [place] [address] 76842- 8632 Dec, Benzodiazepine abuse F13.10 and High risk medication use Z79.899 [facility] [address] [place] [address] [id number] [id number] Nov, Mixed obsessional thoughts and acts F42.2 [place] [address] [place] [address] 5[address]93- 6301 Nov, Panic disorder without agoraphobia F41.0 ; Chronic post- traumatic stress disorder (PTSD) F43.12 ; Mixed obsessional thoughts and acts F42.2 ; Psychophysiological insomnia F51.04 ; High risk medication use Z79.899 and Benzodiazepine abuse F13.10 [place] [address] [address] October, [place] [address] [place] [id number] [place] [address] [phone]- 0856 October, Benzodiazepine abuse F13.10 [facility] [address] [place] [address] [id number] [id number] October, Dental examination Z01.20 [facility] [address] [address] October, [facility] [address] [place] [id number] [address] Sep, Panic disorder without agoraphobia F41.0 ; Chronic post- traumatic stress disorder (PTSD) F43.12 ; Mixed obsessional thoughts and acts F42.2 ; Psychophysiological insomnia F51.04 ; High risk medication use Z79.899 and Benzodiazepine abuse F13.10 [facility] [address] [id number] Sep, Dental examination Z01.20 [facility] [address] [address] Sep, Panic disorder without agoraphobia F41.0 [facility] [address] [facility] [id number] [place] [id number] Aug, Other long term care administrator (current) drug therapy Z79.899 [facility] [place] [address] [facility] [id number] [place] [id number] Aug, [facility] [address] [place] [id number] [address] Aug, Mixed obsessional thoughts and acts F42.2 ; Panic disorder without agoraphobia F41.0 ; Chronic post-traumatic stress disorder (PTSD) F43.12 and Other long term care administrator (current) drug therapy Z79.899 IMMUNIZATIONS No Known Immunizations SOCIAL HISTORY Never Assessed REASON FOR VISIT ativan refill PLAN OF CARE VITAL SIGNS MEDICATIONS Medication Instructions Dosage Frequency Start Date End Date Duration Status Ativan 2 MG Orally twice a day 1 tab am, 1/2 tab at noon and 1 tab hs 12h 30 days Active RESULTS No Results PROCEDURES No Known [...]
--- OUTSIDE RECORDS SUMMARY | 2018-08-02 17:51 | XMS REPORT ---
Author Author FIONA WILSON [facility] Address Unknown Care Team Providers Care Die Maker Name Role Phone FIONA WILSON Unavailable PROBLEMS Type Condition ICD9-CM Code CUE07-DK Code Onset Dates Condition Status SNOMED Code Problem High risk medication use Z79.899 Active 627043245 Problem Moderate episode of recurrent major depressive disorder F33.1 Active 029853115 Problem Panic disorder without agoraphobia F41.0 Active 44696533 Problem Benzodiazepine abuse F13.10 Active 314030455 Problem Mixed obsessional thoughts and acts F42.2 Active 521179361 Problem Psychophysiological insomnia F51.04 Active 358530027 Problem Chronic post-traumatic stress disorder (PTSD) F43.12 Active 88038016 ALLERGIES Substance Reaction Event Type Date Status Morphine Sulfate Unknown Drug Allergy October, Active Gabapentin Unknown Drug Allergy October, Active SOCIAL HISTORY Never Assessed PLAN OF CARE Activity Details Follow Up prn Reason:PROPHY VITAL SIGNS Height 67.0 in 2016-10-15 Blood pressure systolic 160 mmHg 2016-10-15 Blood pressure diastolic 86 mmHg 2016-10-15 MEDICATIONS Medication Instructions Dosage Frequency Start Date End Date Duration Status Buckner 10-325 MG Orally every 4 hrs 1 tablet as needed 4h Active Pioglitazone HCl 30 MG Orally Once a day 1 tablet 24h Active Glimepiride 4 MG Orally Once a day 2 tablets 24h Active Clobetasol Propionate 0.05 % Externally Twice a day 1 application to affected area 12h Active Tramadol HCl 50 MG Orally every 6 hrs 1 tablet as needed 6h Active Baclofen 20 MG Orally every 8 hrs 1 tablet with food or milk 8h Active Losartan Potassium 100 MG Orally Once a day 1 tablet 24h Active Doxepin HCl 100 mg Orally 3 times a day 1 capsule 8h 30 days Active Belsomra 10 mg Orally Once a day 1 tablet at bedtime as needed 24h Sep, 30 days Active Azithromycin 250 MG Orally Once a day 2 tablets on the first day, then 1 tablet daily for 4 days 24h 5 day(s) Active Ativan 2 MG Orally daily 1 tablet BID and 2 tabs at HS 24h October, 30 days Active Fluvoxamine Maleate 100 MG Orally Once a day 2 tablet at bedtime 24h October, 30 days Active RESULTS No Results PROCEDURES Procedure Date Ordered Result Body Site LTD ORAL EVALUATION - PROBLEM FOCUS October 15, 2016 IMMUNIZATIONS No Known Immunizations MEDICAL (GENERAL) HISTORY Type Description Date Medical [...]
--- OUTSIDE RECORDS SUMMARY | 2018-08-02 17:51 | XMS REPORT ---
Author Author GERTRUDEJANELLEMILES Organization [facility] [address] Address [address] [place] [address] Care Team Providers Care Rn Bone Marrow Transplant Name Role Phone JR LOREDO Unavailable PROBLEMS Type Condition ICD9-CM Code [id number] Code Onset Dates Condition Status SNOMED Code Problem High risk medication use Z79.899 Active 190062693 Problem Moderate episode of recurrent major depressive disorder F33.1 Active 366435145 Problem Panic disorder without agoraphobia F41.0 Active 21575220 Problem Benzodiazepine abuse F13.10 Active 068163357 Problem Mixed obsessional thoughts and acts F42.2 Active 332580247 Problem Psychophysiological insomnia F51.04 Active 064247854 Problem Chronic post-traumatic stress disorder (PTSD) F43.12 Active 44637250 ALLERGIES No Information ENCOUNTERS Encounter Location Date Diagnosis [place] [address] [address] May, [facility] [place] [address] [place] [address] Feb, [place] [address] [address] Feb, Benzodiazepine abuse F13.10 ; Panic disorder without agoraphobia F41.0 ; Chronic post-traumatic stress disorder (PTSD) F43.12 ; Mixed obsessional thoughts and acts F42.2 and BMI 40.0-44.9, adult Z68.41 [place] [address] [address] Jan, [place] [address] [address] Dec, Mixed obsessional thoughts and acts F42.2 [place] [address] [place] [address] Nov, Benzodiazepine abuse F13.10 ; Panic disorder without agoraphobia F41.0 ; Chronic post-traumatic stress disorder (PTSD) F43.12 ; Mixed obsessional thoughts and acts F42.2 and BMI 40.0-44.9, adult Z68.41 [place] [address] [place] [id number] [place] [address] 28 Jul, 2017 Benzodiazepine abuse F13.10 ; Panic disorder without agoraphobia F41.0 ; Chronic post-traumatic stress disorder (PTSD) F43.12 ; Mixed obsessional thoughts and acts F42.2 and BMI 40.0-44.9, adult Z68.41 [place] [address] [place] [id number] [place] [address] May, [place] [address] [place] [id number] [place] [address] 6[address] 27[address] May, Panic disorder without agoraphobia F41.0 [place] [address] [place] [id number] [place] [address] 53774[address] 6[address] Apr, [place] [address] [place] [id number] [place] [address]37- 30[address] Apr, Benzodiazepine abuse F13.10 ; Panic disorder without agoraphobia F41.0 ; Chronic post-traumatic stress disorder (PTSD) F43.12 ; Mixed obsessional thoughts and acts F42.2 and BMI 40.0-44.9, adult Z68.41 [place] [address] [place] [address]396- 3646 Mar, Benzodiazepine abuse F13.10 [place] [address] [place] [id number] [place] [address] 70625- 5[address] Mar, Benzodiazepine abuse F13.10 [place] [address] [place] [address] 80[address] Jan, Benzodiazepine abuse F13.10 ; High risk medication use Z79.899 ; Moderate episode of recurrent major depressive disorder F33.1 and Mixed obsessional thoughts and acts F42.2 [facility] [address] [address] Jan, Benzodiazepine abuse F13.10 [facility] [address] [place] [address] 8[address]44[address] Dec, Benzodiazepine abuse F13.10 and High risk medication use Z79.899 [facility] [address] [place] [address] Nov, Mixed obsessional thoughts and acts F42.2 [facility] [address] [place] [address] 38[address] 3[address] Nov, Panic disorder without agoraphobia F41.0 ; Chronic post- traumatic stress disorder (PTSD) F43.12 ; Mixed obsessional thoughts and acts F42.2 ; Psychophysiological insomnia F51.04 ; High risk medication use Z79.899 and Benzodiazepine abuse F13.10 [facility] [address] [place] [id number] [place] [address] 88754- 6[address] October, [facility] [address] [place] [id number] [place] [address] October, Benzodiazepine abuse F13.10 [facility] [address] [place] [id number] [place] [id number] October, Dental examination Z01.20 [place] [address] [place] [address] 41599- [address] October, [facility] [address] [place] [address] 30433- 0767 Sep, Panic disorder without agoraphobia F41.0 ; Chronic post- traumatic stress disorder (PTSD) F43.12 ; Mixed obsessional thoughts and acts F42.2 ; Psychophysiological insomnia F51.04 ; High risk medication use Z79.899 and Benzodiazepine abuse F13.10 [facility] [address] [id number] Sep, Dental examination Z01.20 [facility] [address] [facility] [id number] [place] [address] Sep, Panic disorder without agoraphobia F41.0 [facility] [place] [address] [place] [address] 31 Aug, 2016 Other long term care social worker (current) drug therapy Z79.899 [facility] [address] [place] [address] 31 Aug, 2016 [facility] [address] [facility] [id number] [address] 14 Aug, 2016 Mixed obsessional thoughts and acts F42.2 ; Panic disorder without agoraphobia F41.0 ; Chronic post-traumatic stress disorder (PTSD) F43.12 and Other skilled nursing (current) drug therapy Z79.899 IMMUNIZATIONS No Known Immunizations SOCIAL HISTORY Never Assessed REASON FOR VISIT Requests return call PLAN OF CARE VITAL SIGNS MEDICATIONS Unknown [...]
--- OUTSIDE RECORDS SUMMARY | 2018-08-02 17:51 | XMS REPORT ---
Author Author JR LOREDO [facility] Address [address] [place] [address] Care Team Providers Care Advocacy Director Name Role Phone JR LOREDO Unavailable PROBLEMS Type Condition ICD9-CM Code NTV35-BH Code Onset Dates Condition Status SNOMED Code Problem High risk medication use Z79.899 Active 165432310 Problem Moderate episode of recurrent major depressive disorder F33.1 Active 720284098 Problem Panic disorder without agoraphobia F41.0 Active 95173564 Problem Benzodiazepine abuse F13.10 Active 884697477 Problem Mixed obsessional thoughts and acts F42.2 Active 657589015 Problem Psychophysiological insomnia F51.04 Active 389097936 Problem Chronic post-traumatic stress disorder (PTSD) F43.12 Active 37282098 ALLERGIES Substance Reaction Event Type Date Status Morphine Sulfate Unknown Drug Allergy Sep, Active Gabapentin Unknown Drug Allergy Sep, Active SOCIAL HISTORY Never Assessed PLAN OF CARE Activity Details Follow Up 4 Weeks Reason: VITAL SIGNS Height 67.0 in 2016-10-02 Weight 259.4 lbs 2016-10-02 Heart Rate 92 bpm 2016-10-02 Respiratory Rate 22 2016-10-02 BMI 40.62 kg/m2 2016-10-02 Blood pressure systolic 143 mmHg 2016-10-02 Blood pressure diastolic 80 mmHg 2016-10-02 MEDICATIONS Medication Instructions Dosage Frequency Start Date End Date Duration Status [place] 10-325 MG Orally every 4 hrs 1 tablet as needed 4h Active Tramadol HCl 50 MG Orally every 6 hrs 1 tablet as needed 6h Active Ativan 2 MG Orally daily 1 tablet BID and 2 tabs at HS 24h October, 30 days Active Glimepiride 4 MG Orally Once a day 2 tablets 24h Active Belsomra 10 mg Orally Once a day 1 tablet at bedtime as needed 24h Sep, 30 days Active Fluvoxamine Maleate 100 MG Orally Once a day 2 tablet at bedtime 24h October, 30 days Active Losartan Potassium 100 MG Orally Once a day 1 tablet 24h Active Pioglitazone HCl 30 MG Orally Once a day 1 tablet 24h Active Amoxicillin 500 MG Orally Four times a day 1 capsule 6h Sep, Sep, 7 days Active Clobetasol Propionate 0.05 % Externally Twice a day 1 application to affected area 12h Active Baclofen 20 MG Orally every 8 hrs 1 tablet with food or milk 8h Active Doxepin HCl 100 mg Orally 3 times a day 1 capsule 8h 30 days Active RESULTS No Results PROCEDURES No Known procedures IMMUNIZATIONS No Known Immunizations MEDICAL (GENERAL) HISTORY [...]
--- OUTSIDE RECORDS SUMMARY | 2018-08-02 17:51 | XMS REPORT ---
Author Author JR LOREDO [facility] Address [address] [place] [address] Care Team Providers Care Leadite Man Name Role Phone JR LOREDO Unavailable PROBLEMS Type Condition ICD9-CM Code IUM77-PS Code Onset Dates Condition Status SNOMED Code Problem High risk medication use Z79.899 Active 654873374 Problem Moderate episode of recurrent major depressive disorder F33.1 Active 824864260 Problem Panic disorder without agoraphobia F41.0 Active 43168306 Problem Benzodiazepine abuse F13.10 Active 473113433 Problem Mixed obsessional thoughts and acts F42.2 Active 847387560 Problem Psychophysiological insomnia F51.04 Active 899134387 Problem Chronic post-traumatic stress disorder (PTSD) F43.12 Active 71967732 ALLERGIES No Information SOCIAL HISTORY Never Assessed PLAN OF CARE VITAL SIGNS MEDICATIONS Medication Instructions Dosage Frequency Start Date End Date Duration Status Ativan 2 MG Orally TID PRN 1 tablet 30 days Active RESULTS No Results PROCEDURES [...]
--- OUTSIDE RECORDS SUMMARY | 2018-08-02 17:51 | XMS REPORT ---
Author Author JR LOREDO [facility] [address] [place] Address [address] [place] [address] Care Team Providers Care Automobile Assembly Supervisor Name Role Phone JR LOREDO Unavailable PROBLEMS Type Condition ICD9-CM Code KSS21-NO Code Onset Dates Condition Status SNOMED Code Problem High risk medication use Z79.899 Active 326991773 Problem Moderate episode of recurrent major depressive disorder F33.1 Active 612511804 Problem Panic disorder without agoraphobia F41.0 Active 01235607 Problem Benzodiazepine abuse F13.10 Active 698781580 Problem Mixed obsessional thoughts and acts F42.2 Active 285662119 Problem Psychophysiological insomnia F51.04 Active 342700739 Problem Chronic post-traumatic stress disorder (PTSD) F43.12 Active 01033080 ALLERGIES No Information ENCOUNTERS Encounter Location Date Diagnosis [place] [address] [place] [id number] [place] [address] Feb, [place] [address] [address] Feb, [place] [address] [place] [id number] [place] [address] Jan, [place] [address] [address] Dec, Mixed obsessional thoughts and acts F42.2 [place] [address] [address] Nov, Benzodiazepine abuse F13.10 ; Panic disorder without agoraphobia F41.0 ; Chronic post-traumatic stress disorder (PTSD) F43.12 ; Mixed obsessional thoughts and acts F42.2 and BMI 40.0-44.9, adult Z68.41 [place] [address] [place] [id number] [place] [address] 7[address]58- 3598 Jul, Benzodiazepine abuse F13.10 ; Panic disorder without agoraphobia F41.0 ; Chronic post-traumatic stress disorder (PTSD) F43.12 ; Mixed obsessional thoughts and acts F42.2 and BMI 40.0-44.9, adult Z68.41 [place] [address] [place] [id number] [place] [address]41- 95[address] May, [place] [address] [place] [id number] [place] [address] 81417- 0559 May, Panic disorder without agoraphobia F41.0 [place] [address] [address]- [address] Apr, [place] [address] [place] [id number] [place] [address] 26349- 5[address] Apr, Benzodiazepine abuse F13.10 ; Panic disorder without agoraphobia F41.0 ; Chronic post-traumatic stress disorder (PTSD) F43.12 ; Mixed obsessional thoughts and acts F42.2 and BMI 40.0-44.9, adult Z68.41 [place] [address] [place] [id number] [place] [address] 15041- 3791 Mar, Benzodiazepine abuse F13.10 [place] [address] [place] [id number] [place] [address] 44144- 8974 Mar, Benzodiazepine abuse F13.10 [place] [address] [place] [id number] [place] [address] 84413- 8652 Jan, Benzodiazepine abuse F13.10 ; High risk medication use Z79.899 ; Moderate episode of recurrent major depressive disorder F33.1 and Mixed obsessional thoughts and acts F42.2 [place] [address] [place] [id number] [place] [address] 05466- [address]37 Jan, Benzodiazepine abuse F13.10 [place] [address] [place] [id number] [place] [address] 52359- 2784 Dec, Benzodiazepine abuse F13.10 and High risk medication use Z79.899 [facility] [place] [address] [place] [address] Nov, Mixed obsessional thoughts and acts F42.2 [facility] [address] [place] [id number] [place] [address] 60382- 3453 Nov, Panic disorder without agoraphobia F41.0 ; Chronic post- traumatic stress disorder (PTSD) F43.12 ; Mixed obsessional thoughts and acts F42.2 ; Psychophysiological insomnia F51.04 ; High risk medication use Z79.899 and Benzodiazepine abuse F13.10 [facility] [address] [address] October, [facility] [address] [address] October, Benzodiazepine abuse F13.10 [facility] [address] [id number] October, Dental examination Z01.20 [facility] [address] [place] [id number] [place] [address] 87512- [address]70 October, [facility] [address] 40261- [address]674 Sep, Panic disorder without agoraphobia F41.0 ; Chronic post- traumatic stress disorder (PTSD) F43.12 ; Mixed obsessional thoughts and acts F42.2 ; Psychophysiological insomnia F51.04 ; High risk medication use Z79.899 and Benzodiazepine abuse F13.10 [facility] [address] [place] [id number] [place] [id number] Sep, Dental examination Z01.20 [facility] [address] [address] Sep, Panic disorder without agoraphobia F41.0 [facility] [place] [address] [place] [address] Aug, Other usp (current) drug therapy Z79.899 [facility] [place] [address] [place] [address] 31 Aug, 2016 [facility] [address] [facility] [id number] [place] [address] 14 Aug, 2016 Mixed obsessional thoughts and acts F42.2 ; Panic disorder without agoraphobia F41.0 ; Chronic post-traumatic stress disorder (PTSD) F43.12 and Other usp (current) drug therapy Z79.899 IMMUNIZATIONS No Known Immunizations SOCIAL HISTORY Never Assessed REASON FOR VISIT Medication refill request PLAN OF CARE VITAL SIGNS MEDICATIONS Medication [...]
--- OUTSIDE RECORDS SUMMARY | 2018-08-02 17:51 | XMS REPORT ---
Author Author JR LOREDO [facility] Address [address] [place] [address] Care Team Providers Care Aviation Electronics Technician Name Role Phone JR LOREDO Unavailable PROBLEMS Type Condition ICD9-CM Code RWG63-SP Code Onset Dates Condition Status SNOMED Code Problem High risk medication use Z79.899 Active 326964511 Problem Moderate episode of recurrent major depressive disorder F33.1 Active 311240662 Problem Panic disorder without agoraphobia F41.0 Active 20039789 Problem Benzodiazepine abuse F13.10 Active 286137628 Problem Mixed obsessional thoughts and acts F42.2 Active 163640079 Problem Psychophysiological insomnia F51.04 Active 591108548 Problem Chronic post-traumatic stress disorder (PTSD) F43.12 Active 95020504 ALLERGIES No Information ENCOUNTERS Encounter Location Date Diagnosis [place] [address] [place] [id number] [place] [address]38- [address]99 Nov, [place] [address] [place] [id number] [place] [address] 67400- 24[address] 28 Jul, 2017 Benzodiazepine abuse F13.10 ; Panic disorder without agoraphobia F41.0 ; Chronic post-traumatic stress disorder (PTSD) F43.12 ; Mixed obsessional thoughts and acts F42.2 and BMI 40.0-44.9, adult Z68.41 [place] [address] [place] [address] 19061- 2665 May, [place] [address] [place] [id number] [place] [address] 33331- 3755 May, Panic disorder without agoraphobia F41.0 [place] [address] [place] [id number] [place] [address]- [address] Apr, [place] [address] [address] Apr, Benzodiazepine abuse F13.10 ; Panic disorder without agoraphobia F41.0 ; Chronic post-traumatic stress disorder (PTSD) F43.12 ; Mixed obsessional thoughts and acts F42.2 and BMI 40.0-44.9, adult Z68.41 [place] [address] [place] [address] 74124- 2673 Mar, Benzodiazepine abuse F13.10 [place] [address] [place] [id number] [place] [address] 04409- 8082 Mar, Benzodiazepine abuse F13.10 [place] [address] [place] [id number] [place] [address] Jan, Benzodiazepine abuse F13.10 ; High risk medication use Z79.899 ; Moderate episode of recurrent major depressive disorder F33.1 and Mixed obsessional thoughts and acts F42.2 [place] [address] [place] [address] 04439- 0632 Jan, Benzodiazepine abuse F13.10 [place] [address] [place] [address] 51221- 8[address] Dec, Benzodiazepine abuse F13.10 and High risk medication use Z79.899 [facility] [address] [place] [id number] [id number] Nov, Mixed obsessional thoughts and acts F42.2 [place] [address] [place] [address] 46312- 2642 Nov, Panic disorder without agoraphobia F41.0 ; Chronic post- traumatic stress disorder (PTSD) F43.12 ; Mixed obsessional thoughts and acts F42.2 ; Psychophysiological insomnia F51.04 ; High risk medication use Z79.899 and Benzodiazepine abuse F13.10 [place] [address] [address] October, [place] [address] [place] [id number] [place] [address] 61136- 3467 October, Benzodiazepine abuse F13.10 [facility] [address] [place] [address] [id number] [id number] October, Dental examination Z01.20 [facility] [address] [address] October, [facility] [address] [place] [id number] [address] Sep, Panic disorder without agoraphobia F41.0 ; Chronic post- traumatic stress disorder (PTSD) F43.12 ; Mixed obsessional thoughts and acts F42.2 ; Psychophysiological insomnia F51.04 ; High risk medication use Z79.899 and Benzodiazepine abuse F13.10 [facility] [address] [id number] Sep, Dental examination Z01.20 [facility] [address] [address] Sep, Panic disorder without agoraphobia F41.0 [facility] [place] [address] [facility] [address] [id number] [place] [id number] Aug, Other oysterman (current) drug therapy Z79.899 [facility] [place] [address] [facility] [address] [id number] [place] [id number] Aug, [facility] [address] [place] [id number] [address] Aug, Mixed obsessional thoughts and acts F42.2 ; Panic disorder without agoraphobia F41.0 ; Chronic post-traumatic stress disorder (PTSD) F43.12 and Other oysterman (current) drug therapy Z79.899 IMMUNIZATIONS No Known Immunizations SOCIAL HISTORY Never Assessed REASON FOR VISIT PA for Viibryd PLAN OF CARE VITAL SIGNS MEDICATIONS Unknown [...]
--- OUTSIDE RECORDS SUMMARY | 2018-08-02 17:51 | XMS REPORT ---
Author Author JR LOREDO [facility] [address] Address [address] [place] [address] Care Team Providers Care Acting Professor Name Role Phone JR LOREDO Unavailable PROBLEMS Type Condition ICD9-CM Code XJB41-DV Code Onset Dates Condition Status SNOMED Code Problem High risk medication use Z79.899 Active 313218535 Problem Moderate episode of recurrent major depressive disorder F33.1 Active 630034670 Problem Panic disorder without agoraphobia F41.0 Active 77895277 Problem Benzodiazepine abuse F13.10 Active 117580492 Problem Mixed obsessional thoughts and acts F42.2 Active 050430254 Problem Psychophysiological insomnia F51.04 Active 760231225 Problem Chronic post-traumatic stress disorder (PTSD) F43.12 Active 49311496 ALLERGIES No Information ENCOUNTERS Encounter Location Date Diagnosis [place] [id number] [place] [address] 09451- 2733 Feb, [place] [address] 24996[address] 4136 Feb, [place] [id number] [place] [address] 40992- 2070 Jan, [place] [address] 41536- 0144 Dec, Mixed obsessional thoughts and acts F42.2 [place] [address] 68010- 7256 Nov, Benzodiazepine abuse F13.10 ; Panic disorder without agoraphobia F41.0 ; Chronic post-traumatic stress disorder (PTSD) F43.12 ; Mixed obsessional thoughts and acts F42.2 and BMI 40.0-44.9, adult Z68.41 [place] [id number] [place] [address] 44109- 7245 Jul, Benzodiazepine abuse F13.10 ; Panic disorder without agoraphobia F41.0 ; Chronic post-traumatic stress disorder (PTSD) F43.12 ; Mixed obsessional thoughts and acts F42.2 and BMI 40.0-44.9, adult Z68.41 [place] [id number] [place] [address] 60652- 9860 May, [place] [id number] [place] [address] 90071- 1747 May, Panic disorder without agoraphobia F41.0 [place] [address] 20784- 3186 Apr, [place] [id number] [place] [address] 01273- 7926 Apr, Benzodiazepine abuse F13.10 ; Panic disorder without agoraphobia F41.0 ; Chronic post-traumatic stress disorder (PTSD) F43.12 ; Mixed obsessional thoughts and acts F42.2 and BMI 40.0-44.9, adult Z68.41 [place] [id number] [place] [address] 01526- 8501 Mar, Benzodiazepine abuse F13.10 [place] [id number] [place] [address] 48556- 2225 Mar, Benzodiazepine abuse F13.10 [place] [id number] [place] [address] 28445- 8207 Jan, Benzodiazepine abuse F13.10 ; High risk medication use Z79.899 ; Moderate episode of recurrent major depressive disorder F33.1 and Mixed obsessional thoughts and acts F42.2 [place] [id number] [place] [address] 14776- 1252 Jan, Benzodiazepine abuse F13.10 [place] [id number] [place] [address] 96220- 5444 Dec, Benzodiazepine abuse F13.10 and High risk medication use Z79.899 [facility] [address] [place] [address] Nov, Mixed obsessional thoughts and acts F42.2 [facility] [id number] [place] [address] 79472- 3108 Nov, Panic disorder without agoraphobia F41.0 ; Chronic post- traumatic stress disorder (PTSD) F43.12 ; Mixed obsessional thoughts and acts F42.2 ; Psychophysiological insomnia F51.04 ; High risk medication use Z79.899 and Benzodiazepine abuse F13.10 [facility] [address] [address]- [address] October, [facility] [address] 89916- 3865 October, Benzodiazepine abuse F13.10 [facility] [address] [id number] October, Dental examination Z01.20 [facility] [id number] [place] [address] 63903- 2081 October, [facility] [address] 74893- 8963 Sep, Panic disorder without agoraphobia F41.0 ; Chronic post- traumatic stress disorder (PTSD) F43.12 ; Mixed obsessional thoughts and acts F42.2 ; Psychophysiological insomnia F51.04 ; High risk medication use Z79.899 and Benzodiazepine abuse F13.10 [facility] [id number] [place] [id number] Sep, Dental examination Z01.20 [facility] [address] 98425- 9271 Sep, Panic disorder without agoraphobia F41.0 [facility] [address] [place] [address] Aug, Other chcf (current) drug therapy Z79.899 [facility] [address] [place] [address] Aug, [facility] [address] [facility] [id number] [place] [address] Aug, Mixed obsessional thoughts and acts F42.2 ; Panic disorder without agoraphobia F41.0 ; Chronic post-traumatic stress disorder (PTSD) F43.12 and Other chcf (current) drug therapy Z79.899 IMMUNIZATIONS No Known Immunizations SOCIAL HISTORY Never Assessed REASON FOR VISIT f/u WB-MA PLAN OF CARE Activity Details Follow Up 3 Months Reason: VITAL SIGNS Height 67.0 in 2017-11-26 Weight 258 lbs 2017-11-26 Heart Rate 102 bpm 2017-11-26 Respiratory Rate 20 2017-11-26 BMI 40.40 kg/m2 2017-11-26 Blood pressure systolic 142 mmHg 2017-11-26 Blood pressure diastolic 88 mmHg 2017-11-26 MEDICATIONS Medication Instructions Dosage Frequency Start Date End Date Duration Status Azithromycin 250 MG Orally Once a day 2 tablets on the first day, then 1 tablet daily for 4 days 24h 5 day(s) Not-Taking [place] 10-325 MG Orally every 4 hrs 1 tablet as needed 4h Not- Taking Clonidine HCl 0.1 MG Orally twice a day 1 tablet as needed 12h 30 day (s) Active Baclofen 20 MG Orally every 8 hrs 1 tablet with food or milk 8h Not-Taking Glimepiride 4 MG Orally Once a day 2 tablets 24h Active Clobetasol Propionate 0.05 % Externally Twice a day 1 application to affected area 12h Active BuPROPion HCl ER (XL) 150 MG Orally Once a day 1 tablet in the morning 24h Nov, 30 day(s) Active Pioglitazone HCl 30 MG Orally Once a day 1 tablet 24h Active Tramadol HCl 50 MG Orally every 6 hrs 1 tablet as needed 6h Not- Taking Doxepin HCl 100 mg Orally 3 times a day 1 capsule 8h 30 days Active Losartan Potassium 100 MG Orally Once a day 1 tablet 24h Active Ativan 2 MG Orally 3 times a day 1 tab am, 1/2 tab at noon and 1 tab hs 8h 30 days Active Fluvoxamine Maleate 100 mg Orally twice a day 1 tablet in the AM and 2 tabs at night 12h 30 days Active RESULTS No Results [...]
--- OUTSIDE RECORDS SUMMARY | 2018-08-02 17:51 | XMS REPORT ---
Author Author JR LOREDO [facility] Address [address] [place] [address] Care Team Providers Care Teacher Lip Reading Name Role Phone JR LOREDO Unavailable PROBLEMS Type Condition ICD9-CM Code OTT00-XM Code Onset Dates Condition Status SNOMED Code Problem High risk medication use Z79.899 Active 347772838 Problem Moderate episode of recurrent major depressive disorder F33.1 Active 489464350 Problem Panic disorder without agoraphobia F41.0 Active 56015167 Problem Benzodiazepine abuse F13.10 Active 629698050 Problem Mixed obsessional thoughts and acts F42.2 Active 833949977 Problem Psychophysiological insomnia F51.04 Active 803752193 Problem Chronic post-traumatic stress disorder (PTSD) F43.12 Active 19654692 ALLERGIES No Information ENCOUNTERS Encounter Location Date Diagnosis [place] [id number] [place] [address] 52690- 2636 Nov, [place] [id number] [place] [address] 83417- 8105 28 Jul, 2017 Benzodiazepine abuse F13.10 ; Panic disorder without agoraphobia F41.0 ; Chronic post-traumatic stress disorder (PTSD) F43.12 ; Mixed obsessional thoughts and acts F42.2 and BMI 40.0-44.9, adult Z68.41 [place] [address] [place] [address] 24896- 8605 May, [place] [id number] [place] [address] 26433- 9621 May, Panic disorder without agoraphobia F41.0 [place] [id number] [place] [address] 34602- 6645 Apr, [place] [address], [place] [address] 360[address] Apr, Benzodiazepine abuse F13.10 ; Panic disorder without agoraphobia F41.0 ; Chronic post-traumatic stress disorder (PTSD) F43.12 ; Mixed obsessional thoughts and acts F42.2 and BMI 40.0-44.9, adult Z68.41 [place] [address] [place] [address] 99531- 3642 Mar, Benzodiazepine abuse F13.10 [place] [id number] [place] [address] 30554- 8544 Mar, Benzodiazepine abuse F13.10 [place] [id number] [place] [address] 85297- 2782 Jan, Benzodiazepine abuse F13.10 ; High risk medication use Z79.899 ; Moderate episode of recurrent major depressive disorder F33.1 and Mixed obsessional thoughts and acts F42.2 [place] [address] [place] [address] 17285- 1901 Jan, Benzodiazepine abuse F13.10 [place] [address] [place] [address] 47728- 6971 Dec, Benzodiazepine abuse F13.10 and High risk medication use Z79.899 [facility] [id number] [id number] Nov, Mixed obsessional thoughts and acts F42.2 [place] [address] [place] [address] 39109- 9809 Nov, Panic disorder without agoraphobia F41.0 ; Chronic post- traumatic stress disorder (PTSD) F43.12 ; Mixed obsessional thoughts and acts F42.2 ; Psychophysiological insomnia F51.04 ; High risk medication use Z79.899 and Benzodiazepine abuse F13.10 [place] [address], [place] [address]- 1545 October, [place] [id number] [place] [address] 60818- 5675 October, Benzodiazepine abuse F13.10 [facility] [id number] [id number] October, Dental examination Z01.20 [facility] [address] [address] October, [facility] [id number], [place] [address]- 0335 Sep, Panic disorder without agoraphobia F41.0 ; Chronic post- traumatic stress disorder (PTSD) F43.12 ; Mixed obsessional thoughts and acts F42.2 ; Psychophysiological insomnia F51.04 ; High risk medication use Z79.899 and Benzodiazepine abuse F13.10 [facility] [id number] [id number] Sep, Dental examination Z01.20 [facility] [address], [place] [address]- 8611 Sep, Panic disorder without agoraphobia F41.0 [facility] [place] [address] [facility] [id number] [place] [id number] Aug, Other terminal make up operator (current) drug therapy Z79.899 [facility] [place] [address] [facility] [id number] [place] [id number] Aug, [facility] [id number], [place] [address]- 2679 Aug, Mixed obsessional thoughts and acts F42.2 ; Panic disorder without agoraphobia F41.0 ; Chronic post-traumatic stress disorder (PTSD) F43.12 and Other terminal make up operator (current) drug therapy Z79.899 IMMUNIZATIONS No Known [...]
--- OUTSIDE RECORDS SUMMARY | 2018-08-02 17:51 | XMS REPORT ---
Author Author JR LOREDO [facility] Address [address] [place] [address] Care Team Providers Care Ict Analyst Name Role Phone JR LOREDO Unavailable PROBLEMS Type Condition ICD9-CM Code HBX04-MC Code Onset Dates Condition Status SNOMED Code Problem High risk medication use Z79.899 Active 066707053 Problem Moderate episode of recurrent major depressive disorder F33.1 Active 082283243 Problem Panic disorder without agoraphobia F41.0 Active 93206530 Problem Benzodiazepine abuse F13.10 Active 646321860 Problem Mixed obsessional thoughts and acts F42.2 Active 599760989 Problem Psychophysiological insomnia F51.04 Active 050269200 Problem Chronic post-traumatic stress disorder (PTSD) F43.12 Active 86832862 ALLERGIES No Information SOCIAL HISTORY Never Assessed PLAN OF CARE VITAL SIGNS MEDICATIONS Unknown [...]
--- OUTSIDE RECORDS SUMMARY | 2018-08-02 17:52 | XMS REPORT ---
Author Author JR LOREDO [facility] Address [address] [place] [address] Care Team Providers Care Insurance Claims Processor Name Role Phone JR LOREDO Unavailable PROBLEMS Type Condition ICD9-CM Code TZX30-ER Code Onset Dates Condition Status SNOMED Code Problem High risk medication use Z79.899 Active 039074198 Problem Moderate episode of recurrent major depressive disorder F33.1 Active 434712810 Problem Panic disorder without agoraphobia F41.0 Active 84106877 Problem Benzodiazepine abuse F13.10 Active 621277934 Problem Mixed obsessional thoughts and acts F42.2 Active 533108608 Problem Psychophysiological insomnia F51.04 Active 479013074 Problem Chronic post-traumatic stress disorder (PTSD) F43.12 Active 10862080 ALLERGIES No Information ENCOUNTERS Encounter Location Date Diagnosis [place] [id number] [place] [address] 95574- 2748 October, [place] [id number] [place] [address] 92335- 1867 Jul, Benzodiazepine abuse F13.10 ; Panic disorder without agoraphobia F41.0 ; Chronic post-traumatic stress disorder (PTSD) F43.12 ; Mixed obsessional thoughts and acts F42.2 and BMI 40.0-44.9, adult Z68.41 [place] [address] [place] [address] 78820- 1741 May, [place] [id number] [place] [address] 79109- 8874 May, Panic disorder without agoraphobia F41.0 [place] [id number] [place] [address] 34439- 8413 Apr, [place] [address], [place] [address]- 6206 Apr, Benzodiazepine abuse F13.10 ; Panic disorder without agoraphobia F41.0 ; Chronic post-traumatic stress disorder (PTSD) F43.12 ; Mixed obsessional thoughts and acts F42.2 and BMI 40.0-44.9, adult Z68.41 [place] [address] [place] [address] 11607- 3191 Mar, Benzodiazepine abuse F13.10 [place] [id number] [place] [address] 27820- 4547 Mar, Benzodiazepine abuse F13.10 [place] [id number] [place] [address] 05409- 2140 Jan, Benzodiazepine abuse F13.10 ; High risk medication use Z79.899 ; Moderate episode of recurrent major depressive disorder F33.1 and Mixed obsessional thoughts and acts F42.2 [place] [address] [place] [address] 85368- 1477 Jan, Benzodiazepine abuse F13.10 [place] [address] [place] [address] 35917- 4753 Dec, Benzodiazepine abuse F13.10 and High risk medication use Z79.899 [facility] [address] [id number] [id number] Nov, Mixed obsessional thoughts and acts F42.2 [place] [address] [place] [address] 48402- 6787 Nov, Panic disorder without agoraphobia F41.0 ; Chronic post- traumatic stress disorder (PTSD) F43.12 ; Mixed obsessional thoughts and acts F42.2 ; Psychophysiological insomnia F51.04 ; High risk medication use Z79.899 and Benzodiazepine abuse F13.10 [place] [address], [place] [address]- 4459 October, [place] [id number] [place] [address] 71271- 7872 October, Benzodiazepine abuse F13.10 [facility] [id number] [id number] October, Dental examination Z01.20 [facility] [address] [address]- 2266 October, [facility] [address], [place] [address]- 4882 Sep, Panic disorder without agoraphobia F41.0 ; Chronic post- traumatic stress disorder (PTSD) F43.12 ; Mixed obsessional thoughts and acts F42.2 ; Psychophysiological insomnia F51.04 ; High risk medication use Z79.899 and Benzodiazepine abuse F13.10 [facility] [address] [id number] Sep, Dental examination Z01.20 [facility] [address], [place] [address]- 8900 Sep, Panic disorder without agoraphobia F41.0 [facility] [place] [address] [facility] [id number] [place] [id number] Aug, 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 [facility] [place] [address] [facility] [address] [id number] [place] [id number] Aug, [facility] [id number], [place] [address]- [address] Aug, Mixed obsessional thoughts and acts F42.2 ; Panic disorder without agoraphobia F41.0 ; Chronic post-traumatic stress disorder (PTSD) F43.12 and 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 IMMUNIZATIONS No Known Immunizations SOCIAL HISTORY Never Assessed REASON FOR VISIT michelle Jones MA PLAN OF CARE Activity Details Follow Up 4 Weeks Reason: VITAL SIGNS Height 67.0 in 2016-11-27 Heart Rate 74 bpm 2016-11-27 Respiratory Rate 20 2016-11-27 Blood pressure systolic 138 mmHg 2016-11-27 Blood pressure diastolic 76 mmHg 2016-11-27 MEDICATIONS Medication Instructions Dosage Frequency Start Date End Date Duration Status Prazosin HCl 2 MG Orally at bedtime 1 -2 capsule at bedtime 30 days Active Losartan Potassium 100 MG Orally Once a day 1 tablet 24h Active Doxepin HCl 100 mg Orally 3 times a day 1 capsule 8h 30 days Active Fluvoxamine Maleate 100 mg Orally Once a day 2 tablet at bedtime 24h Nov 30 day(s) Active [place] 10-325 MG Orally every 4 hrs 1 tablet as needed 4h Active Glimepiride 4 MG Orally Once a day 2 tablets 24h Active Pioglitazone HCl 30 MG Orally Once a day 1 tablet 24h Active Clobetasol Propionate 0.05 % Externally Twice a day 1 application to affected area 12h Active Tramadol HCl 50 MG Orally every 6 hrs 1 tablet as needed 6h Active Ativan 2 MG Orally TID PRN 1 [...]
--- OUTSIDE RECORDS SUMMARY | 2018-08-02 17:52 | XMS REPORT ---
Author Author JR LOREDO [facility] Address [address] [place] [address] Care Team Providers Care Marketing Administrator Name Role Phone JR LOREDO Unavailable PROBLEMS Type Condition ICD9-CM Code JIA99-XS Code Onset Dates Condition Status SNOMED Code Problem High risk medication use Z79.899 Active 688447868 Problem Moderate episode of recurrent major depressive disorder F33.1 Active 833883646 Problem Panic disorder without agoraphobia F41.0 Active 51112698 Problem Benzodiazepine abuse F13.10 Active 586557887 Problem Mixed obsessional thoughts and acts F42.2 Active 303496222 Problem Psychophysiological insomnia F51.04 Active 438342749 Problem Chronic post-traumatic stress disorder (PTSD) F43.12 Active 34690814 ALLERGIES No Information ENCOUNTERS Encounter Location Date Diagnosis [place] [id number] [place] [address] 09844- 3384 October, [place] [id number] [place] [address] 63640- 1325 Jul, Benzodiazepine abuse F13.10 ; Panic disorder without agoraphobia F41.0 ; Chronic post-traumatic stress disorder (PTSD) F43.12 ; Mixed obsessional thoughts and acts F42.2 and BMI 40.0-44.9, adult Z68.41 [place] [address] [place] [address] 05077- 5065 May, [place] [id number] [place] [address] 84769- 6200 May, Panic disorder without agoraphobia F41.0 [place] [id number] [place] [address] 13287- 3230 Apr, [place] [address] [address]- 1068 Apr, Benzodiazepine abuse F13.10 ; Panic disorder without agoraphobia F41.0 ; Chronic post-traumatic stress disorder (PTSD) F43.12 ; Mixed obsessional thoughts and acts F42.2 and BMI 40.0-44.9, adult Z68.41 [place] [address] [place] [address] 17384- 5667 Mar, Benzodiazepine abuse F13.10 [place] [id number] [place] [address] 07455- 0726 Mar, Benzodiazepine abuse F13.10 [place] [id number] [place] [address] 23829- 2859 Jan, Benzodiazepine abuse F13.10 ; High risk medication use Z79.899 ; Moderate episode of recurrent major depressive disorder F33.1 and Mixed obsessional thoughts and acts F42.2 [place] [address] [place] [address] 86991- 5837 Jan, Benzodiazepine abuse F13.10 [place] [address] [place] [address] 57956- 4212 Dec, Benzodiazepine abuse F13.10 and High risk medication use Z79.899 [facility] [id number] [id number] Nov, Mixed obsessional thoughts and acts F42.2 [place] [address] [place] [address] 65605- 3196 Nov, Panic disorder without agoraphobia F41.0 ; Chronic post- traumatic stress disorder (PTSD) F43.12 ; Mixed obsessional thoughts and acts F42.2 ; Psychophysiological insomnia F51.04 ; High risk medication use Z79.899 and Benzodiazepine abuse F13.10 [place] [address] [address]- 7567 October, [place] [id number] [place] [address] 84891112- 9586 October, Benzodiazepine abuse F13.10 [facility] [id number] [id number] October, Dental examination Z01.20 [facility] [address], [place] [address]- 2546 October, [facility] [address] [id number], [place] [address]- 5193 Sep, Panic disorder without agoraphobia F41.0 ; Chronic post- traumatic stress disorder (PTSD) F43.12 ; Mixed obsessional thoughts and acts F42.2 ; Psychophysiological insomnia F51.04 ; High risk medication use Z79.899 and Benzodiazepine abuse F13.10 [facility] [address] [id number] Sep, Dental examination Z01.20 [facility] [address], [place] [address]- 1771 Sep, Panic disorder without agoraphobia F41.0 [facility] [place] [address] [facility] [id number] [place] [id number] Aug, 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
--- OUTSIDE RECORDS SUMMARY | 2018-08-02 17:55 | XMS REPORT | Continuity of Care Document ---
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 <50 medMATCH aOH midazolam CONSISTENT NRG Alphahydroxytriazolam NEGATIVE ng/mL <50 medMATCH aOH triazolam CONSISTENT NRG Aminoclonazepam NEGATIVE ng/mL <25 medMATCH Aminoclonazepam CONSISTENT NRG Hydroxyethylflurazepam NEGATIVE ng/mL <50 medMATCH OH,Et flurazepam CONSISTENT NRG Lorazepam 811 ng/mL <50 medMATCH Lorazepam CONSISTENT NRG Nordiazepam NEGATIVE ng/mL <50 medMATCH Nordiazepam CONSISTENT NRG Oxazepam NEGATIVE ng/mL <50 medMATCH Oxazepam CONSISTENT NRG Temazepam NEGATIVE ng/mL <50 medMATCH Temazepam CONSISTENT NRG Codeine NEGATIVE ng/mL <50 medMATCH Codeine CONSISTENT NRG Hydrocodone 1033 ng/mL <50 medMATCH Hydrocodone INCONSISTENT NRG Hydromorphone NEGATIVE ng/mL <50 medMATCH Hydromorphone CONSISTENT NRG Morphine NEGATIVE ng/mL <50 medMATCH Morphine CONSISTENT NRG Norhydrocodone 751 ng/mL <50 medMATCH Norhydrocodone INCONSISTENT NRG Barbiturates NEGATIVE ng/mL <300 medMATCH Barbiturates CONSISTENT NRG Methadone Metabolite NEGATIVE ng/mL <100 medMATCH Methadone Metab CONSISTENT NRG Phencyclidine NEGATIVE ng/mL <25 medMATCH Phencyclidine CONSISTENT NRG Complete blood count (CBC) with automated white blood cell (WBC) differential - 08/02/18 15:14 Blood leukocytes automated count (number/volume) 4.9 10*3/uL 4.3-11.0 Blood erythrocytes automated count (number/volume) 4.62 10*6/uL 4.35-5.85 Venous blood hemoglobin measurement (mass/volume) 12.9 g/dL 11.5-16.0 Blood hematocrit (volume fraction) 38 % 35-52 Automated erythrocyte mean corpuscular volume 83 [foz_us] 80-99 Automated erythrocyte mean corpuscular hemoglobin (mass per erythrocyte) 28 pg 25-34 Automated erythrocyte mean corpuscular hemoglobin concentration measurement ( mass/volume) 34 g/dL 32-36 Automated erythrocyte distribution width ratio 15.4 % 10.0-14.5 Automated blood platelet count (count/volume) 231 10*3/uL 130-400 Automated blood platelet mean volume measurement 11.9 [foz_us] 7.4-10.4 Automated blood neutrophils/100 leukocytes 58 % 42-75 Automated blood lymphocytes/100 leukocytes 27 % 12-44 Blood monocytes/100 leukocytes 11 % 0-12 Automated blood eosinophils/100 leukocytes 3 % 0-10 Automated blood basophils/100 leukocytes 0 % 0-10 Blood neutrophils automated count (number/volume) 2.9 10*3 1.8-7.8 Blood lymphocytes automated count (number/volume) 1.4 10*3 1.0-4.0 Blood monocytes automated count (number/volume) 0.5 10*3 0.0-1.0 Automated eosinophil count 0.2 10*3/uL 0.0-0.3 Automated blood basophil count (count/volume) 0.0 10*3/uL 0.0-0.1 Comprehensive metabolic panel - 08/02/18 15:14 Serum or plasma sodium measurement (moles/volume) 139 mmol/L 135-145 Serum or plasma potassium measurement (moles/volume) 4.2 mmol/L 3.6-5.0 Serum or plasma chloride measurement (moles/volume) 108 mmol/L 98-107 Carbon dioxide 20 mmol/L 21-32 Serum or plasma anion gap determination (moles/volume) 11 mmol/L 5-14 Serum or plasma urea nitrogen measurement (mass/volume) 16 mg/dL 7-18 Serum or plasma creatinine measurement (mass/volume) 0.87 mg/dL 0.60-1.30 Serum or plasma urea nitrogen/creatinine mass ratio 18 NRG Serum or plasma creatinine measurement with calculation of estimated glomerular filtration rate > NRG Serum or plasma glucose measurement (mass/volume) 318 mg/dL 70-105 Serum or plasma calcium measurement (mass/volume) 9.4 mg/dL 8.5-10.1 Serum or plasma total bilirubin measurement (mass/volume) 0.3 mg/dL 0.1-1.0 Serum or plasma alkaline phosphatase measurement (enzymatic activity/volume) 92 U/L 40-136 Serum or plasma aspartate aminotransferase measurement (enzymatic activity/ volume) 19 U/L 5-34 Serum or plasma alanine aminotransferase measurement (enzymatic activity/volume ) 15 U/L 0-55 Serum or plasma protein measurement (mass/volume) 6.8 g/dL 6.4-8.2 Serum or plasma albumin measurement (mass/volume) 4.2 g/dL 3.2-4.5 CALCIUM CORRECTED 9.2 mg/dL 8.5-10.1 Arterial blood gas measurement - 08/02/18 15:34 Blood pCO2 48 mm[Hg] 35-45 Blood pO2 120 mm[Hg] 79-93 Arterial blood bicarbonate measurement (moles/volume) 22 mmol/L 23-27 Arterial blood base excess by calculation -4.3 mmol/L - 2.5-2.5 Arterial blood oxygen saturation measurement 98 % 94-100 * Inhaled oxygen flow rate 4 NRG Arterial blood pH measurement with patient temperature correction 7.27 7.37-7.43 Arterial blood carbon dioxide, total measurement (moles/volume) 23.2 mmol/L 21.0-31.0 Body site RT RADIAL NRG Assessment of wrist artery patency prior to arterial puncture YES- POS NRG Setting of ventilation mode NO NRG Measurement of body temperature 96.9 NRG Urine drug screening test - 08/02/18 15:48 Urine phencyclidine detection by screening method NEGATIVE NEGATIVE Urine benzodiazepines detection by screening method POSITIVE NEGATIVE Urine cocaine detection NEGATIVE NEGATIVE Urine amphetamines detection by screening method NEGATIVE NEGATIVE Urine methamphetamine detection by screening method NEGATIVE NEGATIVE Urine cannabinoids detection by screening method NEGATIVE NEGATIVE Urine opiates detection by screening method POSITIVE NEGATIVE Urine barbiturates detection NEGATIVE NEGATIVE Screening urine tricyclic antidepressants detection POSITIVE NEGATIVE Urine methadone detection by screening method NEGATIVE NEGATIVE Urine oxycodone detection NEGATIVE NEGATIVE Urine propoxyphene detection NEGATIVE NEGATIVE Complete urinalysis with reflex to culture - 08/02/18 15:48 Urine color determination YELLOW NRG Urine clarity determination CLEAR NRG Urine pH measurement by test strip 5 5-9 Specific gravity of urine by test strip 1.020 1.016- 1.022 Urine protein assay by test strip, semi-quantitative 2+ NEGATIVE Urine glucose detection by automated test strip 4+ NEGATIVE Erythrocytes detection in urine sediment by light microscopy 1+ NEGATIVE Urine ketones detection by automated test strip NEGATIVE NEGATIVE Urine nitrite detection by test strip NEGATIVE NEGATIVE Urine total bilirubin detection by test strip NEGATIVE NEGATIVE Urine urobilinogen measurement by automated test strip (mass/volume) NORMAL NORMAL Urine leukocyte esterase detection by dipstick NEGATIVE NEGATIVE Automated urine sediment erythrocyte count by microscopy (number/high power field) RARE NRG Automated urine sediment leukocyte count by microscopy (number/high power field ) NONE NRG Bacteria detection in urine sediment by light microscopy NEGATIVE NRG Squamous epithelial cells detection in urine sediment by light microscopy 0-2 NRG Crystals detection in urine sediment by light microscopy NONE NRG Casts detection in urine sediment by light microscopy NONE NRG Mucus detection in urine sediment by light microscopy NEGATIVE NRG Complete urinalysis with reflex to culture NO NRG Encounters ACCT No. Visit Date/Time Discharge Status Pt. Type Provider Facility Loc./Unit Complaint [id number] 03/09/2017 16:34:00 03/09/2017 17:30:00 DIS Emergency MARK ANTHONY BARRAGAN Via [facility] ER KNOTS ON HEAD [id number] 04/17/2016 20:03:00 04/21/2016 15:15:00 DIS Inpatient JEANNE PAN DO [facility] 4TH SEPTIC ARTHRITIS OF L ELBOW,CELLULITIS [id number] 01/29/2016 12:44:00 01/29/2016 13:50:00 DIS Outpatient PEPE WATT MD [facility] CARD M50.13 [id number] 11/20/2015 12:09:00 11/20/2015 13:14:00 DIS Outpatient PEPE WATT MD [facility] CARD DISC DISORDER WO RADICULOPATHY [id number] 09/19/2015 15:03:00 10/16/2015 09:45:00 DIS Outpatient JEANNE PAN DO [facility] REHAB CERVICAL THORACIC PAIN SPASM [id number] 07/16/2015 11:37:00 07/16/2015 12:39:00 DIS Emergency KARYN ROSS APRN [facility] ER R SHOULDER PAIN/PREV INJ [id number] 07/11/2015 10:22:00 07/11/2015 13:30:00 DIS Emergency MARK ANTHONY BARRAGAN [facility] ER BACK/RIGHT SHOULDER/ NECK PAIN [id number] 06/03/2014 13:07:00 06/03/2014 14:07:00 DIS Emergency KARYN ROSS APRN [facility] ER RIGHT EAR PAIN/SWELLING [id number] 11/13/2013 12:26:00 11/13/2013 14:31:00 DIS Emergency DRAKE HUFF MD [facility] ER DIARRHEA [id number] 05/18/2013 13:55:00 05/18/2013 23:59:59 CLS Outpatient CASSIE RUVALCABA DO [facility] RAD OLD WRIST FRACTURE [id number] 03/20/2013 17:29:00 03/20/2013 18:24:00 DIS Emergency ESTRELLA SCHMITZ MD [facility] ER POST OP; L WRIST PAIN [id number] 02/19/2013 16:20:00 02/19/2013 23:59:59 CLS Outpatient [id number] 01/13/2013 10:03:00 01/13/2013 15:10:00 DIS Emergency DRAKE HUFF MD [facility] ER MEDICAL SCREENING [id number] 01/06/2013 13:55:00 01/06/2013 23:59:59 CLS Outpatient [id number] 12/23/2012 13:01:00 01/05/2013 15:15:00 DIS Outpatient JORGE HDZ MD [facility] REHAB FX L RADIUS [id number] 12/04/2012 12:19:00 12/04/2012 23:59:59 CLS Outpatient [id number] 12/04/2012 12:12:00 12/04/2012 23:59:59 CLS Emergency [id number] 08/02/2018 15:35:00 Document Registration [id number] 06/03/2014 13:19:00 Document Registration [id number] 06/03/2014 13:19:00 Document Registration [id number] 06/03/2014 13:19:00 Document Registration [id number] 09/14/2012 06:00:00 Document Registration [id number] 09/10/2012 09:21:00 Document Registration [id number] 08/22/2012 15:20:00 Document Registration [id number] 08/03/2012 06:00:00 Document Registration [id number] 07/29/2012 12:11:00 Document Registration [id number] 06/30/2012 18:26:00 Document Registration [id number] 06/22/2012 08:44:00 Document Registration [id number] 10/31/2011 11:27:00 Document Registration [id number] 01/11/2011 10:47:00 Document Registration [id number] 07/28/2010 14:47:00 Document Registration [id number] 02/20/2010 20:03:00 Document Registration 05/201605/31/2018 06:15:34 05/31/2018 23:59:59 CLS Outpatient Jeanne aPn [id number] 06/03/2014 13:08:13 ACT Document Registration [id number] 07/29/2018 15:20:00 07/29/2018 23:59:59 CLS Outpatient Jeanne Pan [facility] [id number] 02/25/2018 14:00:00 Document Registration
--- NOTE | 2018-08-02 19:05 | NUR ---
RECEIVED PATIENT AT 1830 FROM ED. VSS. NO S/S OF DISTRESS. DENIES ANY NEEDS/PAIN AT THIS TIME. SAFETY PRECAUTIONS IN PLACE. MAINTAINING POC.
[2018-08-02] MEDS ORDERED: ONDANSETRON 4 MG/2 ML (SDV) Z0FRAN IV PRN (20:45)
[2018-08-02] MEDS ORDERED: NS (IVPB) 50 ML ONE (22:24)
[2018-08-02] MEDS: DEXMEDETOMIDINE INJECTION 200 MCG in NS (IVPB) 50 ML IV SCH (22:37)
--- NOTE | 2018-08-02 22:53 | NUR ---
PT HAS ATTEMPTED TO GET OUT OF BED TO URINATE SEVERAL TIMES, WHEN PLACED ON BSC WITH MAX ASSIST OF 2, SHE IS UNABLE TO URINATE. LUTZ CATHETER INSERTED WITH RETURN OF 900 MLS OF URINE. PT C/O BACK PAIN, EICU NOTIFIED, ORDERS RECEIVED. DAUGHTER CAME IN TO SIT AT BEDSIDE TO HELP WITH KEEPING THE PT IN BED
[2018-08-03] VITALS (13 sets, daily range): BP systolic 137–179; BP diastolic 59–108
[2018-08-03] MEDS: inSUlin ASPART (NovoLOG) 1 UNIT/0.01 ML (CHARGE PER UNIT) SC SCH ×6 (00:21→20:13)
--- NOTE | 2018-08-03 00:23 | NUR ---
HYDROCODONE GIVEN PO TIMES ONE AND PRECEDEX DRIP STARTED AND PT IS NOW RESTING QUIETLY. DAUGHTER HAS GONE HOME BUT STATED TO CALL HER IF I NEED TOO
[2018-08-03] MEDS: DEXMEDETOMIDINE INJECTION 200 MCG in NS (IVPB) 50 ML IV SCH ×2 (00:59→04:10)
--- NOTE | 2018-08-03 02:41 | NUR ---
PT WOKE UP AND IS ALERT AT THIS TIME, THOUGHT THAT EVERYTHING THAT HAPPENED EARLIER WAS A BAD DREAM
[2018-08-03] MEDS ORDERED: HYDROcodone/APAP 10 MG/325 MG (LORTAB) TAB PO ONE ×2 (03:19→05:34)
[2018-08-03 04:30] LABS: BASOPHILS % (AUTO) 0 % (0-10); EOSINOPHILS % (AUTO) 1 % (0-10); HEMATOCRIT 37 % (35-52); HEMOGLOBIN 11.7 G/DL (11.5-16.0); LYMPHOCYTES # (AUTO) 0.7 X 10^3 (1.0-4.0); LYMPHOCYTES % (AUTO) 13 % (12-44); MEAN CORPUSCULAR HEMOGLOBIN 27 PG (25-34); MEAN CORPUSCULAR HGB CONC 32 G/DL (32-36); MEAN CORPUSCULAR VOLUME 84 FL (80-99); MEAN PLATELET VOLUME 11.4 FL (7.4-10.4); MONOCYTES # (AUTO) 0.4 X 10^3 (0.0-1.0); MONOCYTES % (AUTO) 7 % (0-12); NEUTROPHILS # (AUTO) 3.9 X 10^3 (1.8-7.8); NEUTROPHILS % (AUTO) 79 % (42-75); PLATELET COUNT 186 10^3/uL (130-400); RED CELL DISTRIBUTION WIDTH 15.1 % (10.0-14.5)
[2018-08-03 04:51] LABS: ALANINE AMINOTRANSFERASE 15 U/L (0-55); ALBUMIN 3.7 GM/DL (3.2-4.5); ALKALINE PHOSPHATASE 83 U/L (40-136); BILIRUBIN,TOTAL 0.3 MG/DL (0.1-1.0); BUN/CREATININE RATIO 15; CALCIUM 8.3 MG/DL (8.5-10.1); CARBON DIOXIDE 25 MMOL/L (21-32); CHLORIDE 108 MMOL/L (98-107); CREATININE SERUM 0.75 MG/DL (0.60-1.30); GFR ESTIMATED > 60; GLUCOSE 257 MG/DL (70-105); MAGNESIUM 1.9 MG/DL (1.8-2.4); PHOSPHORUS 4.3 MG/DL (2.3-4.7); POTASSIUM 4.6 MMOL/L (3.6-5.0); SODIUM 139 MMOL/L (135-145)
[2018-08-03] MEDS: HYDROcodone/APAP 10 MG/325 MG (LORTAB) TAB PO PRN ×2 (05:40→11:44)
[2018-08-03] MEDS ORDERED: MAGNESIUM 1 GM/100 ML IVPB 100 ML IV SCH (06:00)
[2018-08-03] MEDS ORDERED: POTASSIUM CL 10MEQ/50ML IVPB 50 ML IV SCH (06:00)
[2018-08-03] MEDS ORDERED: KCL 20 MEQ TAB (K-DUR) PO SCH (06:00)
--- NOTE | 2018-08-03 06:06 | Pulmonary Consultation ---
History of Present Illness History of Present Illness Date of Consultation 08/03/18 05:59 Time Seen by Provider: 05:59 Date of Admission History of Present Illness 58yo with hx of chronic back pain, and sciatica presented to ED via EMS secondary to progressive severe low back pain with radiation to right leg that started 2 days prior to admission. Pt was able to stand up for EMS to transfer to EMS cart without difficulty. No incontinence of bowel or bladder. CT of head and lumbar spine are negative for acute process. In the ED pt was also hard to arouse and was sonorous respirations. PT was given Narcan in the ED with improvement of MS. Pt has a long hx of opioid use however per daughter has not been rx any for last 6 months. Pt does take Baclofen, and lorazepam at home. UDS was positive for opioids, benzos, and TCAs. Allergies and Home Medications Allergies Coded Allergies: gabapentin (Unverified Allergy, Unknown, 06/03/14) morphine (Unverified Allergy, Unknown, 06/03/14) Home Medications Amlodipine Besylate 5 Mg Tablet, 5 MG PO DAILY for blood pressure Prescribed by: JEANNE COOPER on 04/21/16 1003 Baclofen 20 Mg Tablet, 20 MG PO TID PRN for MUSCLE SPASMS, (Reported) Cephalexin 500 Mg Capsule, 500 MG PO QID Prescribed by: JEANNE COOPER on 04/21/16 1003 Clindamycin HCl 300 Mg Capsule, 300 MG PO Q6H Prescribed by: MARK ANTHONY BENITEZ on 03/09/17 1722 Doxepin HCl 100 Mg Capsule, 200 MG PO HS, (Reported) TAKES 2 (100MG) CAPSULES Doxepin Hcl 100 Mg Capsule, 100 MG PO BID PRN for SKIN CONDITION/BP, (Reported) Fluconazole 100 Mg Tablet, 100 MG PO DAILY Prescribed by: JEANNE COOPER on 04/21/16 1003 Fluvoxamine Maleate 100 Mg Tablet, 100 MG PO HS, (Reported) Glimepiride 4 Mg Tablet, 4 MG PO BID, (Reported) Hydrocodone/Acetaminophen 1 Each Tablet, 1 TAB PO Q4H PRN for PAIN, (Reported) Lorazepam 2 Mg Tablet, 2 MG PO 5XD PRN for ANXIETY, (Reported) Losartan Potassium 100 Mg Tablet, 100 MG PO DAILY, (Reported) Naproxen 500 Mg Tablet, 500 MG PO BID Prescribed by: JEANNE COOPER on 04/21/16 1003 Pioglitazone HCl 30 Mg Tablet, 30 MG PO DAILY, (Reported) Prazosin HCl 5 Mg Capsule, 15 MG PO HS, (Reported) TAKES 3 (5MG) CAPSULES Tramadol HCl 50 Mg Tablet, 50 MG PO Q6H PRN for PAIN, (Reported) Past Falnjuw-Lrlmop-Ydtexz Hx Past Med/Social Hx: Reviewed Nursing Past Med/Soc Hx Patient Social History Alcohol Use: Denies Use Recreational Drug Use: Yes (METHAMPHETAMINES --DENIES IV USE) Smoking Status: Never a Smoker Recent Foreign Travel: No Contact w/Someone Who Travel: No Recent Infectious Disease Expo: No Recent Hopitalizations: Yes (GASTRIC BYPASS SURG IN [facility] 2001) Immunizations Up To Date Tetanus Booster (TDap): Unknown Date of Pneumonia Vaccine: Apr 18, 2014 Date of Influenza Vaccine: Apr 16, 2014 Seasonal Allergies Seasonal Allergies: Yes (environmental) Past Medical History Surgeries: Yes (GASTRIC BYPASS/LEFT WRIST FX) Abdominal, Gallbladder, Orthopedic, Tonsillectomy Respiratory: No Currently Using CPAP: No Currently Using BIPAP: No Cardiac: Yes Hypertension Neurological: Yes 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 Disorders: No 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 Disorders: Denies [employer]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 HIV/AIDS: No UTI-Chronic Gastrointestinal: Yes (SIDE EFFECTS FROM GASTRIC BYPASS) Gastrointestinal Bleed, Chronic Diarrhea Musculoskeletal: Yes (lt wrist with external imobilizer hardware) Arthritis, Fibromyalgia Endocrine: Yes Diabetes, Non-Insulin dep Tinnitis Loss of Vision: Denies Hearing Impairment: Denies Cancer: No Cervical Psychosocial: Yes Sleep Difficulties, Anxiety, Depression Integumentary: Yes (chronic skin rash) Blood Disorders: Yes Adverse Reaction/Blood Tranf: No Family Medical History Reviewed Nursing Family Hx No Pertinent Family Hx Review of Systems Time Seen by Provider: 06:23 Constitutional: No: Fever, Chills, Sweats, Weakness, Malaise, Other Eyes: No: Pain, Vision change, Conjunctivae inflammation, Eyelid inflammation, Other, Redness ENT: No: Ear pain, Ear discharge, Nose pain, Nose discharge, Nose congestion, Mouth pain, Mouth swelling, Throat pain, Throat swelling, Other Respiratory: No: Cough, Dry, Shortness of breath, SOB with excertion, Wheezing , Hemoptysis, Pleuritic Pain, Sputum, Wheezing, Other Cardiovascular: No: Chest Pain, Palpitations, Orthopnea, Paroxysmal Noc. Dyspnea, Edema, Lt Headedness, Other Sepsis Event Evaluation Height, Weight, BMI Height: 5'7.00" Weight: 250lbs. 0.4oz. 113.816813kw; 39.2 BMI Method:Stated Exam Exam Vital Signs Date Time Temp Pulse Resp B/P (MAP) Pulse Ox O2 Delivery O2 Flow Rate FiO2 08/03/18 05:00 58 8 148/59 (88) 97 Nasal Cannula 2.00 08/03/18 04:00 62 9 154/72 (99) 97 Nasal Cannula 2.00 08/03/18 04:00 Nasal Cannula 2.00 08/03/18 04:00 97.9 08/03/18 03:00 64 9 151/67 (95) 98 Nasal Cannula 2.00 08/03/18 02:00 64 9 170/70 (103) 97 Nasal Cannula 2.00 08/03/18 01:00 64 11 157/65 (95) 95 Nasal Cannula 2.00 08/03/18 01:00 64 08/03/18 00:00 Nasal Cannula 2.00 08/03/18 00:00 98.2 Nasal Cannula 2.00 08/03/18 00:00 68 10 146/66 (92) 97 Nasal Cannula 2.00 08/02/18 23:00 69 9 118/59 (78) 98 Nasal Cannula 2.00 08/02/18 22:00 86 26 150/113 (125) 98 Nasal Cannula 2.00 08/02/18 21:31 77 13 98 Nasal Cannula 2.00 08/02/18 21:00 74 8 158/79 (105) 93 Room Air 08/02/18 20:00 65 8 119/60 (79) Room Air 08/02/18 20:00 Nasal Cannula 2.00 08/02/18 20:00 97.0 Room Air 08/02/18 19:45 67 133/76 (95) Room Air 08/02/18 19:30 68 167/88 (114) 93 Room Air 08/02/18 19:15 59 159/83 (108) 100 Room Air 08/02/18 19:00 62 151/80 (103) 90 Room Air 08/02/18 19:00 62 08/02/18 17:51 62 18 104/72 (83) 98 Nasal Cannula 4.00 08/02/18 15:24 60 18 135/65 (88) 100 Nasal Cannula 4.00 08/02/18 14:59 96.9 81 18 119/87 (98) 98 Room Air I & O 08/03/18 07:00 Intake Total 100 ml Output Total 1600 ml Balance -1500 ml Height & Weight Height: 5'7.00" Weight: 250lbs. 0.4oz. 113.621227mc; 39.2 BMI Method:Stated General Appearance: No Apparent Distress, WD/WN Respiratory: Chest Non Tender, Lungs Clear, Normal Breath Sounds, No Accessory Muscle Use, No Respiratory Distress Cardiovascular: Regular Rate, Rhythm, No Edema, No Gallop, No JVD, No Murmur, Normal Peripheral Pulses Capillary Refill: Less Than 3 Seconds Extremity: Normal Capillary Refill, Normal Inspection, Normal Range of Motion, Non Tender, No Calf Tenderness, No Pedal Edema, Calf Tenderness Neurologic/Psychiatric: Alert, Oriented x3, Normal Mood/Affect Skin: Normal Color, Warm/Dry Results Lab Laboratory Tests 08/02/18 15:14 08/03/18 04:10 Assessment/Plan Assessment/Plan Chronic back pain with AE -CT of lumbar spine shows no acute process. -Restart home baclofen Lethargy/confusion secondary to polypharmacy - improved after narcan -UDS was positive for benzos, TCAs, and narcotics Psychosis -D/C precedex -Start Risperdal -restart home Ativan Anxiety/depression Nocturnal hypoxia with ROSA ELENA -Pt needs out patient testing if she is willing Morbid obesity with probable OHS NICKY CERON DO Aug 03, 2018 06:06
[2018-08-03] MEDS: risperiDONE 1 MG (RisperDAL) TAB PO SCH ×2 (06:56→20:13)
[2018-08-03] MEDS: BACLOFEN 10 MG (LIORESAL) TAB PO SCH ×3 (06:56→20:13)
[2018-08-03] MEDS: LORazepam 1 MG (ATIVAN) TAB PO PRN ×2 (07:50→14:21)
--- NOTE | 2018-08-03 08:05 | History & Physicial ---
History of Present Illness History of Present Illness Reason for visit/HPI 58-year-old female presents to [facility] emergency department during the evening of August 02, 2018 with excruciating right sided lumbar back pain. She reports the pain was so severe she was unable to stand. She was brought into the emergency department via [facility]. Apparently during her workup she had received hydrocodone as well as tramadol. During her time receiving CT of the lumbar back she apparently had an issue with mental status. She was found to be hard to arouse and subsequently underwent CT of the head which was found to be negative. Regarding her back she did not have a fall although she does have issues with her back in the past. She refers to her cervical neck is be an issue and to a lesser degree the lumbar back. Date of Admission Aug 02, 2018 at 17:20 Date Seen by a Provider: Aug 03, 2018 Time Seen by a Provider: 07:20 I consulted on this patient on 08/03/18 08:00 Attending Physician Cassandra Barney DO Admitting Physician Jose Finley MD Consult Allergies and Home Medications Allergies Coded Allergies: gabapentin (Unverified Allergy, Unknown, 06/03/14) morphine (Unverified Allergy, Unknown, 06/03/14) Home Medications Amlodipine Besylate 5 Mg Tablet, 5 MG PO DAILY for blood pressure Prescribed by: JEANNE COOPER on 04/21/16 1003 Baclofen 20 Mg Tablet, 20 MG PO TID PRN for MUSCLE SPASMS, (Reported) Cephalexin 500 Mg Capsule, 500 MG PO QID Prescribed by: JEANNE COOPER on 04/21/16 1003 Clindamycin HCl 300 Mg Capsule, 300 MG PO Q6H Prescribed by: MARK ANTHONY BENITEZ on 03/09/17 1722 Doxepin HCl 100 Mg Capsule, 200 MG PO HS, (Reported) TAKES 2 (100MG) CAPSULES Doxepin Hcl 100 Mg Capsule, 100 MG PO BID PRN for SKIN CONDITION/BP, (Reported) Fluconazole 100 Mg Tablet, 100 MG PO DAILY Prescribed by: JEANNE COOPER on 04/21/16 1003 Fluvoxamine Maleate 100 Mg Tablet, 100 MG PO HS, (Reported) Glimepiride 4 Mg Tablet, 4 MG PO BID, (Reported) Hydrocodone/Acetaminophen 1 Each Tablet, 1 TAB PO Q4H PRN for PAIN, (Reported) Lorazepam 2 Mg Tablet, 2 MG PO 5XD PRN for ANXIETY, (Reported) Losartan Potassium 100 Mg Tablet, 100 MG PO DAILY, (Reported) Naproxen 500 Mg Tablet, 500 MG PO BID Prescribed by: JEANNE COOPER on 04/21/16 1003 Pioglitazone HCl 30 Mg Tablet, 30 MG PO DAILY, (Reported) Prazosin HCl 5 Mg Capsule, 15 MG PO HS, (Reported) TAKES 3 (5MG) CAPSULES Tramadol HCl 50 Mg Tablet, 50 MG PO Q6H PRN for PAIN, (Reported) Patient Home Medication List Home Medication List Reviewed: Yes Past Dfjqfeu-Gxtuqw-Ezjoth Hx Patient Social History Marrital Status: Alcohol Use: Denies Use Recreational Drug Use: Yes (METHAMPHETAMINES --DENIES IV USE) Smoking Status: Never a Smoker Physical Abuse Screen: No Sexual Abuse: No Recent Foreign Travel: No Contact w/other who traveled: No Recent Hopitalizations: Yes (GASTRIC BYPASS SURG IN [facility] 2001) Recent Infectious Disease Expo: No Immunizations Up To Date Tetanus Booster (TDap): Unknown Date of Pneumonia Vaccine: Apr 18, 2014 Date of Influenza Vaccine: Apr 16, 2014 Seasonal Allergies Seasonal Allergies: Yes (environmental) Surgeries Yes (GASTRIC BYPASS/LEFT WRIST FX) Abdominal, Gallbladder, Orthopedic, Tonsillectomy Respiratory No Currently Using CPAP: No Currently Using BIPAP: No Cardiovascular Yes Hypertension Neurological Yes 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 System Hx 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 Disorders: No HIV/AIDS: No 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 Disorders: Denies [employer] BI[employer] History: Menopausal Genitourinary UTI-Chronic Gastrointestinal Yes (SIDE EFFECTS FROM GASTRIC BYPASS) Gastrointestinal Bleed, Chronic Diarrhea Musculoskeletal Yes (lt wrist with external imobilizer hardware) Arthritis, Fibromyalgia Endocrine History of Endocrine Disorders: Yes Endocrine Disorders: Diabetes, Non-Insulin dep HEENT HEENT Disorders: Tinnitis Loss of Vision: Denies Hearing Impairment: Denies Cancer No Cervical Psychosocial History of Psychiatric Problem: Yes Behavioral Health Disorders: Sleep Difficulties, Anxiety, Depression Integumentary History of Skin or Integumenta: Yes (chronic skin rash) Blood Transfusions History of Blood Disorders: Yes Adverse Reaction to a Blood Tr: No Family Medical History Significant Family History: No Pertinent Family Hx Review of Systems Constitutional: see HPI Physical Exam Vital Signs Vital Signs - First Documented 07/31/18 08/02/18 18:45 15:24 Temp 96.6 Pulse 86 Resp 20 B/P (MAP) 175/90 (118) Pulse Ox 96 O2 Delivery Room Air O2 Flow Rate 4.00 Capillary Refill : Less Than 3 Seconds Height, Weight, BMI Height: 5'7.00" Weight: 251lbs. 0.4oz. 113.185165sd; 39.2 BMI Method:Stated General Appearance: Mild Distress (In the ICU) Eyes: Bilateral Eye Normal Inspection Respiratory: Lungs Clear Cardiovascular: Regular Rate, Rhythm Rectal: Deferred Back: Normal Inspection, Vertebral Tenderness (With right-sided lumbar discomfort.) Extremity: Normal Capillary Refill Neurologic/Psychiatric: Alert, Oriented x3 Skin: Warm/Dry Comments NAME: GERONIMO VARGAS [facility] REC#: [id number] PT STATUS: REG ER : 1960 PHYSICIAN: RACH BAEZ ADMIT DATE: 08/02/18/ER Signed Date of Exam: 08/02/18 CT LUMBAR SPINE WO PROCEDURE: CT lumbar spine without contrast. TECHNIQUE: Multiple contiguous axial images were obtained through the lumbar spine without the use of intravenous contrast. Sagittal and coronal reformations were then performed. INDICATION: Back pain for two days. No recent injury. Examination somewhat limited due to the large body habitus and motion. There is normal height and alignment of the lumbar vertebral bodies. There is mild disc space narrowing at L4-L5 and L5-S1. No disc herniation or significant central canal stenosis is evident at any level. There is no mass or acute bony abnormality. There is no soft tissue mass. IMPRESSION: There are degenerative changes present with no bony stenosis seen. There is no acute abnormality evident. Dictated by: Dictated on workstation # [id number] Dict: 08/02/18 1434 Trans: 08/02/18 1500 Interpreted by: JOCELINE BUTT MD Electronically signed by: JOCELINE BUTT MD 08/02/18 1500 Assessment/Plan Assessment and Plan 1. Severe right-sided lumbar back pain -Patient most likely will have continued anti-inflammatory agents -Physical therapy for ambulation 2. Altered mental status -ICU for monitoring Admission Diagnosis 1. Severe right-sided lumbar back pain 2. Altered mental status Admission Status: Inpatient Order (span 2 midnights) Reason for Inpatient Admission: Patient admitted for monitoring her altered mental status in the ICU. Clinical Quality Measures DVT/VTE Risk/Contraindication: Risk Factor Score Per Nursin RFS Level Per Nursing on Admit: 4+=Very High JOSE FINLEY MD Aug 03, 2018 08:05
[2018-08-03] MEDS: KETOROLAC 30 MG/ML VIAL IVP PRN ×3 (08:49→22:21)
[2018-08-03] MEDS ORDERED: risperiDONE 1 MG (RisperDAL) TAB PO SCH (09:00)
--- NOTE | 2018-08-03 09:20 | NUR ---
REPORT CALLED TO NIKI BURNS, PATIENT WENT FOR MRI AND THEN [facility]. PERSONAL BELONGINGS SENT WITH DAUGHTER [facility]
--- NOTE | 2018-08-03 10:19 | Diagnostic Imaging Report ---
PROCEDURE: MRI lumbar spine. TECHNIQUE: Multiplanar, multisequence MRI of the lumbar spine was performed without contrast. INDICATION: Severe low back pain and right hip pain. FINDINGS: Curvature and alignment of the lumbar spine is normal. Vertebral body heights are maintained. The marrow signal intensity is normal. No acute compression fracture or geographic marrow lesion is seen. There are some mild generalized disc desiccation compatible with mild degenerative change. Disc spaces are fairly well maintained. The conus appears unremarkable at the L1 level. T12-L1: Central canal is widely patent. Neural foramina appear patent. L1-2: Central canal is patent. Neural foramina are patent. There are some degenerative facet changes noted. L2-3: Degenerative facet changes are noted. No significant central canal narrowing is seen. No neural foraminal stenosis is identified. L3-4: There are hypertrophic facet changes and ligamentous thickening. There is some mild broad-based disc/osteophyte complex with mild narrowing of the canal. There is mild to moderate bilateral neural foraminal narrowing. L4-5: There is ligamentous thickening and facet changes with broad-based disc/osteophyte complex indenting the ventral thecal sac. Bilateral lateral recesses are narrowed particularly on the left. There is significant left and moderate right neural foraminal stenosis. Moderate central canal narrowing is seen. L5-S1: Hypertrophic facet changes are noted. Central canal is patent. There is some narrowing of the lateral recesses bilaterally, right greater. Thre appears to be a wide based right far lateral disc protrusion/extrusion, significantly narrowing the right neural foramen. The left neural foramen shows mild narrowing. Paraspinous tissues are unremarkable. IMPRESSION: 1. Generalized lumbar spondylosis with generalized central canal, lateral recess and neural foraminal narrowing described level by level above. There are findings suggestive of a wide-based right far lateral disc protrusion/extrusion at the L5-S1 level. 2. No evidence of acute compression fracture. Dictated by: Dictated on workstation # [id number]
--- NOTE | 2018-08-03 12:10 | NUR ---
WENT OVER THE EXT MED HX WITH THE PATIENT AND SHE VERIFIED HOW SHE IS TAKING THEM. SHE STATES SHE DID NOT GET THE MELOXICAM OR SINGULAIR THAT WAS FILLED 07-21-18 DUE TO NOT BEING ABLE TO AFFORD THEM. SHE STATES SHE IS TAKING AMLODIPINE FOR BP HOWEVER IT IS PAST DUE FOR REFILL ACCORDING TO THE EXT MED HX.
--- NOTE | 2018-08-03 12:12 | Physical Therapy Evaluation ---
PT Evaluation-General Medical Diagnosis Admission Date Aug 02, 2018 at 17:20 Medical Diagnosis: Chronic Lower Back Pain, AMS Onset Date: Aug 02, 2018 Therapy Diagnosis Therapy Diagnosis: decreased mobility Height/Weight Height (Feet): 5 Height (Inches): 7.00 Weight (Pounds): 251 Weight (Ounces): 0.4 Precautions Precautions/Isolations: Standard Precautions Weight Bear Status Right Lower Extremity: Right Full Weight Bearing Left Lower Extremity: Left Full Weight Bearing Referral Physician: Dr. Santos Reason for Referral: Evaluation/Treatment Medical History Pertinent Medical History: Arthritis, DM, HTN Additional Medical History Gastric Bypass, Fibromyalgia, drug abuse Current History Pt to ER by EMS c/o severe low back pain radiating to R leg for 2 days. Reviewed History: Yes Social History Home: Apartment Current Living Status: Alone Entry Into Home: Elevator Prior/Core FIM Prior Level of Function Therapy Code Descriptions/Definitions Functional [place] Measure: 0=Not Assessed/NA 4=Minimal Assistance 1=Total Assistance 5=Supervision or Setup 2=Maximal Assistance 6=Modified [place] 3=Moderate Assistance 7=Complete [place] Therapy Quality Codes: 6 Independent with activity with or without an assistive device 5 Patient requires set up or clean up by helper. Patient completes activity by themselves 4 Supervision or touching assist (CGA). [place] provide cues , steadying assist 3 The helper provides less than half the effort to complete the activity 2 The helper provides more than half the effort to complete the activity 1 Dependent. The helper does all the effort to complete an activity 7 Patient refused to complete or attempt activity 9 The patient did not perform the activity before the current illness or injury 88 Not attempted due to Medical conditions or safety concerns Functional Abilities and Goals: Independent: Patient completed the activities by him/herself, with or without an assistive device, with no assistance from a helper. Needed Some Help: Patient needed partial assistance from another person to complete activities. Dependent: A helper completed the activities for the patient. Unknown: Not Applicable: Bed Mobility: 7 Transfers (B,C,W/C) (FIM): 7 Gait: 7 Indoor Mobility (Ambulation): Independent Prior Devices Use: None PT Evaluation-Current Subjective Pt sitting EOB and agrees to PT. Reports she hasn't been able to move very well due to back pain. Pt/Family Goals Pt to return home. Objective Patient Orientation: Person, Place, Situation, Normal For Age ROM/Strength ROM Lower Extremities WNL Strength Lower Extremities gross motor LLE (4+/5), RLE (3+/5) Integumentary/Posture Bowel Incontinence: No Bladder Incontinence: Jackson Cath Neuromuscular (Tone, Coordination, Reflexes) NT Sensory Vision: Functional Hearing: Functional Sensation Right Lower Extremit: Intact Sensation Left Lower Extremity: Intact Transfers Therapy Code Descriptions/Definitions Functional [place] Measure: 0=Not Assessed/NA 4=Minimal Assistance 1=Total Assistance 5=Supervision or Setup 2=Maximal Assistance 6=Modified [place] 3=Moderate Assistance 7=Complete [place] Transfers (B, C, W/C) (FIM): 4 Sit to/from Stand: 4 Gait Mode of Locomotion: Walk Anticipated Mode of Locomotion: Walk Gait (FIM): 4 Distance (FIM): 3=150 ft Distance: 150' Gait Level of Assist: 4 Gait Persons Needed: 1 Gait Assistive Device: FWW Comments/Gait Description antalgic gait Balance Sitting Static: Good Sitting Dynamic: Good Standing Static: Good Standing Dynamic: Good Assessment/Needs Pt able to perform sit<>stand from EOB to FWW with CGA. Pt required VC for safety of hand placement. Pt able to amb 150' with FWW and CGA. Pt returned to room and is EOB. PT educated pt on piriformis stretch (figure 4) and then pt performed 10 reps of nerve glides. Pt is EOB with all needs met. Rehab Potential: Good Post Rehab Potential-Barriers: co-morbidities PT Short Term Goals Short Term Goals Time Frame: Aug 10, 2018 Transfers (B,C,W/C) (FIM): 5 Gait (FIM): 5 Distance (FIM): 3=150 ft Gait Distance Comment: 300' Gait Level of Assist: 5 Gait Assistive Device: FWW PT Plan Problem List Problem List: Activity Tolerance, Functional Strength, Safety, Balance, Gait, Transfer, Bed Mobility Treatment/Plan Treatment Plan: Continue Plan of Care Treatment Plan: Bed Mobility, Education, Functional Activity Angélica, Functional Strength, Gait, Safety, Therapeutic Exercise, Transfers Treatment Duration: Aug 10, 2018 Frequency: 6 times per week Estimated Hrs Per Day: .25 hour per day Patient and/or Family Agrees t: Yes Safety Risks/Education Patient Education: Gait Training, Transfer Techniques, Correct Positioning, Safety Issues Teaching Recipient: Patient Teaching Methods: Demonstration, Discussion Discharge Recommendations Therapy D/C Recommendations: Home w/ Family Support, Home Independently Time/GCodes Time In: 1054 Time Out: 1117 Total Billed Treatment Time: 23 Total Billed Treatment 1 visit EVL 10 min EX 13 min RAJNI REYNOSO PT Aug 03, 2018 12:12
[2018-08-03] MEDS ORDERED: NON-FORMULARY MEDICATION 1 EA EA (Zolpidem Tartrate 10 MG) PO PRN (16:30)
[2018-08-03] MEDS ORDERED: cloNIDine 0.1 MG (CATAPRES) TAB PO PRN (16:30)
[2018-08-03] MEDS ORDERED: ZOLPIDEM 5 MG (AMBIEN) TAB PO PRN (17:00)
[2018-08-03] MEDS: GLIMEPIRIDE 4 MG (AMARYL) TAB PO SCH (17:53)
[2018-08-03] MEDS: HYDROcodone/APAP 7.5 MG/325 MG (LORTAB, LORCET PLUS) TABLET PO PRN (18:55)
--- NOTE | 2018-08-03 20:47 | NUR ---
WENT TO GIVE PT NIGHTLY MEDICATIONS AND STARTING ASKING ABOUT HER ATIVAN AND WHEN SHE WILL GET IT AGAIN. I LET PT KNOW SHES HAD A TOTAL OF 2MG TODAY. PT STARTED GETTING FRUSTRATED BC SHE TAKES A TOTAL OF 5MG AT HOME DAILY. LET PT KNOW I WOULD SPEAK WITH DR. FINLEY. 2044-SPOKE WITH DR. FINLEY. TELEPHONE ORDERS RECEIVED FOR 1X DOSE OF ATIVAN 2MG.
[2018-08-03] MEDS ORDERED: DOXEPIN HCL 200 MG PO SCH (21:00)
[2018-08-03] MEDS ORDERED: FLUVOXAMINE MALEATE 200 MG PO SCH (21:00)
[2018-08-03] MEDS ORDERED: LORazepam 1 MG (ATIVAN) TAB PO ONE (21:00)
[2018-08-03] MEDS ORDERED: DOXEPIN 25 MG (SINEquan) CAP PO SCH (21:00)
[2018-08-03] MEDS ORDERED: NON-FORMULARY MEDICATION 1 EA EA (Glimepiride 4 MG) PO SCH (21:00)
[2018-08-04] VITALS: BP 176/77
[2018-08-04] MEDS: inSUlin ASPART (NovoLOG) 1 UNIT/0.01 ML (CHARGE PER UNIT) SC SCH ×4 (01:02→12:21)
[2018-08-04] MEDS: HYDROcodone/APAP 7.5 MG/325 MG (LORTAB, LORCET PLUS) TABLET PO PRN ×3 (01:03→12:31)
[2018-08-04 04:00] VITALS: BP 161/72
[2018-08-04] MEDS: KETOROLAC 30 MG/ML VIAL IVP PRN ×2 (04:33→10:41)
[2018-08-04 05:19] LABS: BASOPHILS % (AUTO) 0 % (0-10); EOSINOPHILS # (AUTO) 0.1 10^3/uL (0.0-0.3); EOSINOPHILS % (AUTO) 3 % (0-10); HEMATOCRIT 36 % (35-52); HEMOGLOBIN 11.5 G/DL (11.5-16.0); LYMPHOCYTES # (AUTO) 1.5 X 10^3 (1.0-4.0); LYMPHOCYTES % (AUTO) 33 % (12-44); MEAN CORPUSCULAR HEMOGLOBIN 27 PG (25-34); MEAN CORPUSCULAR HGB CONC 32 G/DL (32-36); MEAN CORPUSCULAR VOLUME 84 FL (80-99); MEAN PLATELET VOLUME 11.9 FL (7.4-10.4); MONOCYTES # (AUTO) 0.4 X 10^3 (0.0-1.0); MONOCYTES % (AUTO) 8 % (0-12); NEUTROPHILS # (AUTO) 2.6 X 10^3 (1.8-7.8); NEUTROPHILS % (AUTO) 56 % (42-75); PLATELET COUNT 220 10^3/uL (130-400); RED CELL DISTRIBUTION WIDTH 15.5 % (10.0-14.5); WHITE BLOOD COUNT 4.6 10^3/uL (4.3-11.0)
[2018-08-04 05:46] LABS: BUN/CREATININE RATIO 26; CALCIUM 8.8 MG/DL (8.5-10.1); CARBON DIOXIDE 25 MMOL/L (21-32); CHLORIDE 106 MMOL/L (98-107); CREATININE SERUM 0.78 MG/DL (0.60-1.30); GFR ESTIMATED > 60; GLUCOSE 175 MG/DL (70-105); MAGNESIUM 2.1 MG/DL (1.8-2.4); PHOSPHORUS 3.7 MG/DL (2.3-4.7); POTASSIUM 3.7 MMOL/L (3.6-5.0); SODIUM 140 MMOL/L (135-145)
[2018-08-04] MEDS ORDERED: LORazepam 1 MG (ATIVAN) TAB PO SCH ×2 (06:00→12:00)
[2018-08-04] MEDS ORDERED: LORAZEPAM 2 MG PO SCH (06:00)
[2018-08-04] MEDS: GLIMEPIRIDE 4 MG (AMARYL) TAB PO SCH (06:33)
[2018-08-04] MEDS ORDERED: FLU QUADRIvalent (5+ YOA) 2018-2019 (AFLURIA) 0.5 ML IM ONE (06:45)
[2018-08-04] MEDS ORDERED: metFORMIN XR 500 MG (GLUCOPHAGE XR) TAB PO SCH (07:00)
[2018-08-04] MEDS ORDERED: PIOGLITAZONE 30MG (ACTOS) TAB PO SCH (07:00)
--- NOTE | 2018-08-04 07:49 | Progress Note (SOAP) ---
Subjective Date Seen by a Provider: Aug 04, 2018 Time Seen by a Provider: 07:30 Subjective/Events-last exam Patient is sitting at the side of bed this morning. She does appear to be in discomfort but she has not writhing in pain. She communicates well. She is very concerned about her right sided lumbar back and how she is going to function at home with this severe pain. She can ambulate but it is very slow. She had physical therapy yesterday afternoon. Objective Exam Vital Signs Date Time Temp Pulse Resp B/P (MAP) Pulse Ox O2 Delivery O2 Flow Rate FiO2 08/04/18 04:00 98.2 78 18 161/72 (101) 92 Room Air 08/04/18 00:00 99.2 85 18 176/77 (110) 95 Room Air 08/03/18 20:58 98.9 88 20 179/82 (114) 96 Room Air 08/03/18 16:34 98.5 88 20 179/81 (113) 96 Room Air 08/03/18 12:00 98.4 86 20 147/78 (101) 97 Room Air 08/03/18 10:00 98.4 80 20 177/76 (109) 96 Room Air 08/03/18 09:00 78 11 137/75 (95) 95 Room Air 08/03/18 08:00 96 Room Air 08/03/18 08:00 75 15 159/108 (125) 97 Room Air I & O 08/04/18 06:59 Intake Total 2300 ml Output Total 2875 ml Balance -575 ml Capillary Refill : Less Than 3 Seconds General Appearance: Mild Distress Neck: Normal Inspection Cardiovascular: Regular Rate, Rhythm Extremity: Other (Back examination does reveal tenderness primarily along the L5-S1 region of the right side) Neurologic/Psychiatric: Alert Skin: Normal Color Results Lab Laboratory Tests 08/03/18 12:28: Glucometer 232H 08/03/18 16:31: Glucometer 219H 08/03/18 19:55: Glucometer 190H 08/04/18 00:54: Glucometer 225H 08/04/18 04:18: Glucometer 167H 08/04/18 04:20: White Blood Count 4.6, Red Blood Count 4.27L, Hemoglobin 11.5, Hematocrit 36, Mean Corpuscular Volume 84, Mean Corpuscular Hemoglobin 27, Mean Corpuscular Hemoglobin Concent 32, Red Cell Distribution Width 15.5H, Platelet Count 220, Mean Platelet Volume 11.9H, Neutrophils (%) (Auto) 56, Lymphocytes (%) (Auto) 33 , Monocytes (%) (Auto) 8, Eosinophils (%) (Auto) 3, Basophils (%) (Auto) 0, Neutrophils # (Auto) 2.6, Lymphocytes # (Auto) 1.5, Monocytes # (Auto) 0.4, Eosinophils # (Auto) 0.1, Basophils # (Auto) 0.0, Sodium Level 140, Potassium Level 3.7, Chloride Level 106, Carbon Dioxide Level 25, Anion Gap 9, Blood Urea Nitrogen 20H, Creatinine 0.78, Estimat Glomerular Filtration Rate > 60, BUN/ Creatinine Ratio 26, Glucose Level 175H, Calcium Level 8.8, Phosphorus Level 3.7 , Magnesium Level 2.1 Radiology NAME: GERONIMO VARGAS [facility] REC#: [id number] PT STATUS: ADM IN : 1960 PHYSICIAN: LUCIO FINLEY MD ADMIT DATE: 08/02/18 Signed Date of Exam: 08/03/18 MRI LUMBAR SPINE W/O CONTRAST PROCEDURE: MRI lumbar spine. TECHNIQUE: Multiplanar, multisequence MRI of the lumbar spine was performed without contrast. INDICATION: Severe low back pain and right hip pain. FINDINGS: Curvature and alignment of the lumbar spine is normal. Vertebral body heights are maintained. The marrow signal intensity is normal. No acute compression fracture or geographic marrow lesion is seen. There are some mild generalized disc desiccation compatible with mild degenerative change. Disc spaces are fairly well maintained. The conus appears unremarkable at the L1 level. T12-L1: Central canal is widely patent. Neural foramina appear patent. L1-2: Central canal is patent. Neural foramina are patent. There are some degenerative facet changes noted. L2-3: Degenerative facet changes are noted. No significant central canal narrowing is seen. No neural foraminal stenosis is identified. L3-4: There are hypertrophic facet changes and ligamentous thickening. There is some mild broad-based disc/osteophyte complex with mild narrowing of the canal. There is mild to moderate bilateral neural foraminal narrowing. L4-5: There is ligamentous thickening and facet changes with broad-based disc/osteophyte complex indenting the ventral thecal sac. Bilateral lateral recesses are narrowed particularly on the left. There is significant left and moderate right neural foraminal stenosis. Moderate central canal narrowing is seen. L5-S1: Hypertrophic facet changes are noted. Central canal is patent. There is some narrowing of the lateral recesses bilaterally, right greater. Thre appears to be a wide based right far lateral disc protrusion/extrusion, significantly narrowing the right neural foramen. The left neural foramen shows mild narrowing. Paraspinous tissues are unremarkable. IMPRESSION: 1. Generalized lumbar spondylosis with generalized central canal, lateral recess and neural foraminal narrowing described level by level above. There are findings suggestive of a wide-based right far lateral disc protrusion/extrusion at the L5-S1 level. 2. No evidence of acute compression fracture. Dictated by: Dictated on workstation # [id number] Dict: 08/03/18 1006 Trans: 08/03/18 1511 Interpreted by: GRZEGORZ VIRAMONTES MD Electronically signed by: GRZEGORZ VIRAMONTES MD 08/03/18 1511 Assessment/Plan Assessment/Plan Assess & Plan/Chief Complaint 1. Severe right sided lumbar back pain--suspect related to findings from MRI -Orthopedic consultation pending -Physical therapy continues today -Ultimately home discharge hopefully today with pain medication as well as follow-up orthopedics 2. Altered mental statusresolved -I suspect the initial insult on day of admission was due to medications. Clinical Quality Measures Admission Status Admission Dx 1. Severe right-sided lumbar back pain 2. Altered mental status DVT/VTE Risk/Contraindication: Risk Factor Score Per Nursin RFS Level Per Nursing on Admit: 4+=Very High LUCIO FINLEY MD Aug 04, 2018 07:49
[2018-08-04 08:00] VITALS: BP 185/88
[2018-08-04] MEDS ORDERED: NON-FORMULARY MEDICATION 1 EA EA (Amlodipine Besylate 5 MG) PO SCH (09:00)
[2018-08-04] MEDS ORDERED: DOXEPIN 25 MG (SINEquan) CAP PO SCH (09:00)
[2018-08-04] MEDS ORDERED: DOXEPIN HCL 100 MG PO SCH (09:00)
[2018-08-04] MEDS ORDERED: NON-FORMULARY MEDICATION 1 EA EA (Pioglitazone HCl 30 MG) PO SCH (09:00)
[2018-08-04] MEDS ORDERED: NON-FORMULARY MEDICATION 1 EA EA (Fluvoxamine Maleate 100 MG) PO SCH (09:00)
[2018-08-04] MEDS ORDERED: amLODIPine 5 MG (NORVASC) TAB PO SCH (09:00)
[2018-08-04] MEDS: risperiDONE 1 MG (RisperDAL) TAB PO SCH (09:01)
[2018-08-04] MEDS: BACLOFEN 10 MG (LIORESAL) TAB PO SCH ×2 (09:01→12:26)
--- NOTE | 2018-08-04 11:35 | Physical Therapy Daily Note ---
PT Daily Note-Current Subjective Pt in bed and agrees to PT. Reports her back hurts really bad and she needs her pain med. Pt also reports that she wasn't able to sleep at all last night due to pain. Pain Numeric Pain Scale: 10-Worst Possible Pain Location: Right Location Body Site: Back Mental Status Patient Orientation: Person, Place Attachments: Jackson Catheter Transfers Therapy Code Descriptions/Definitions Functional [place] Measure: 0=Not Assessed/NA 4=Minimal Assistance 1=Total Assistance 5=Supervision or Setup 2=Maximal Assistance 6=Modified [place] 3=Moderate Assistance 7=Complete [place] Therapy Quality Codes: 6 Independent with activity with or without an assistive device 5 Patient requires set up or clean up by helper. Patient completes activity by themselves 4 Supervision or touching assist (CGA). [place] provide cues , steadying assist 3 The helper provides less than half the effort to complete the activity 2 The helper provides more than half the effort to complete the activity 1 Dependent. The helper does all the effort to complete an activity 7 Patient refused to complete or attempt activity 9 The patient did not perform the activity before the current illness or injury 88 Not attempted due to Medical conditions or safety concerns Transfers (B, C, W/C) (FIM): 5 Rollin Supine to/from Sit: 5 Sit to/from Stand: 5 Weight Bearing Right Lower Extremity: Right Full Weight Bearing Left Lower Extremity: Left Full Weight Bearing Gait Training Gait (FIM): 2 Distance (FIM): 2=861-82 ft Distance: 100' Gait Level of Assist: 5 Gait Persons Needed: 1 Gait Assistive Device: FWW Assessment Current Status: Poor Progress Pt requires increased time to perform activity due to pain. Pt able to perform bed mobility with SBA. Pt was EOB and nurse was able to give pt pain medication. Pt amb 100' with FWW and SBA, became emotional due to pain and lack of energy. Pt returned to bed and has all needs met. PT Short Term Goals Short Term Goals Time Frame: Aug 10, 2018 Transfers (B,C,W/C) (FIM): 5 Gait (FIM): 5 Distance (FIM): 3=150 ft Gait Distance Comment: 300' Gait Level of Assist: 5 Gait Assistive Device: FWW PT Plan Problem List Problem List: Activity Tolerance, Safety, Balance, Gait, Transfer, Bed Mobility Treatment/Plan Treatment Plan: Continue Plan of Care Treatment Plan: Bed Mobility, Education, Functional Activity Angélica, Functional Strength, Gait, Safety, Therapeutic Exercise, Transfers Treatment Duration: Aug 10, 2018 Frequency: 6 times per week Estimated Hrs Per Day: .25 hour per day Patient and/or Family Agrees t: Yes Time/GCodes Time In: 1031 Time Out: 1045 Total Billed Treatment Time: 14 Total Billed Treatment 1 visit GT 14 min RAJNI REYNOSO PT Aug 04, 2018 11:35
[2018-08-04 12:00] VITALS: BP 192/87
[2018-08-04] MEDS ORDERED: LORAZEPAM 1 MG PO SCH (12:00)
--- NOTE | 2018-08-04 15:01 | Discharge Inst-Simple/Standard ---
Discharge Inst-Standard Discharge Medications New, Converted or Re-Newed RX: Other Patient Instructions/Follow Up Plan of Care/Instructions/FU: Dr Finley in 1 week. Ortho FU as they recommend Activity as Tolerated: Yes Discharge Diet: Regular Diet Return to The Hospital For: Severe back pain Other Inst to Patient Come by office today for Rx for pain medication. Planned Outpatient Orders/Ref. [facility] orthopedics LUCIO FINLEY MD Aug 04, 2018 15:01
--- NOTE | 2018-08-04 15:22 | CONSULTATION REPORT ---
DATE OF SERVICE: ORTHOPEDIC CONSULTATION IMPRESSION: 1. Low back pain. 2. Right-sided lumbar radiculopathy. RECOMMENDATIONS: 1. Continue formal physical therapy. 2. Outpatient subacromial steroid injection. HISTORY AND PHYSICAL EXAMINATION: The patient is a 58-year-old female seen with chief complaint of low back pain. The patient states that she did not do any type of strenuous activity. She did not done any type of lifting, pushing or pulling, had no injury. She states that on the Friday prior to this Friday examination that she began feeling some weakness in her right leg. She works at a [employer] and does not require to do any type of lifting. The patient states that she awakened Friday a.m. with severe amount of pain in her low back radiating down her right leg. She states that her pain continued to progress where she was not able to tolerate this. She was transferred by ambulance to the hospital on the Friday prior to this Friday exam. The patient had been receiving physical therapy. She continues to have persistent pain in the right leg. She states that she is not sleeping. The patient states that she had a prior problem with a disk in her either upper back in the thoracic region of her lower neck. She states that she did have an injury with that when struck by a door. She states that she was examined with an open MRI examination and those films are not available for review. She states that she went through physical therapy, continued to have persistent pain and subsequently, underwent a pain management injection through Dr. Wall that did resolve her symptoms nearly completely. On exam, the patient is examined in her bed with the patient on her left side and her right knee in a flexed position. The patient has pain over the right lower lumbar area and pain into her right buttock and pain down the posterior aspect of her right thigh, pain at this time stops at the knee. The patient demonstrates decreased reflexes of 1+/4 at both the left and right knee and the left and right Achilles tendon. She has multiple superficial skin sores on both lower extremities. She has slight diffuse decreased sensation from the knee distally on the right compared to her left. The patient's imaging results were reviewed. The patient had a lumbar spine MRI evaluation obtained on 08/03/2018. The patient had some mild neural foraminal stenosis at L4-L5 with mild degenerative disk disease. The patient's radiologist's report indicated that the patient had a far lateral disk protrusion to the right at L5-S1. There was felt to be a wide based right far lateral disk protrusion/extrusion significantly narrowing the right neural foramen. The left neural foramen at the same L5-S1 level demonstrated mild narrowing. The patient is denying any bowel or bladder abnormalities. I discussed with the patient that I am not a spine surgeon. We do not have anyone currently on staff that does pain management injections, specifically in the orthopedic group here. I will discuss the results of this patient with Dr. Justice, who is not senior loss control specialist, but is a spine surgeon on with staff privileges at this hospital. I would recommend the patient continue with her pain medication. The nursing staff indicates that she is very committed to receiving this on a very timely fashion. She does not do well. She did not receive the medication. She is to continue with her attempting to ambulate. Other than the communication with Dr. Justice, I do not have any further recommendations. Job ID: [id number] DocumentID: [id number] Dictated Date: 08/04/2018 14:08:17 Gallery Host Date: 08/04/2018 15:21:35 Dictated By: VICKI MARINO DO
--- NOTE | 2018-08-04 15:41 | Discharge Summary ---
Diagnosis/Chief Complaint Date of Admission Aug 02, 2018 at 17:20 Date of Discharge August 04, 2018 Discharge Date: Aug 04, 2018 Discharge Time: 16:00 Admission Diagnosis Admission Diagnosis 1. Severe right-sided lumbar back pain 2. Altered mental status Discharge Diagnosis 1. Severe right-sided lumbar back pain 2. Altered mental status--medication related Reason Hospital Visit 58-year-old female presents to [facility] emergency department during the evening of August 02, 2018 with excruciating right sided lumbar back pain. She reports the pain was so severe she was unable to stand. She was brought into the emergency department via [facility]. Apparently during her workup she had received hydrocodone as well as tramadol. During her time receiving CT of the lumbar back she apparently had an issue with mental status. She was found to be hard to arouse and subsequently underwent CT of the head which was found to be negative. Regarding her back she did not have a fall although she does have issues with her back in the past. She refers to her cervical neck is be an issue and to a lesser degree the lumbar back. Discharge Summary Hospital Course Was the Problem List Reviewed?: Yes Hospital Course patient was admitted during the late afternoon of August 02, 2018 following presentation to [facility] emergency department with severe back pain She ultimately was being worked up for the back pain but suffered from alter mental status. She was admitted to the hospital for further monitoring of her neurological status. She did improve with regard to her mental status while in the ICU. She was ultimately moved to the [facility] on August 03, 2018. Her main medical management at this time was to have pain control for the back. Complicating issues with the fact that she is on alprazolam for anxiety and she is adamant that she cannot go without this. She also had physical therapy which was helpful in getting her up and beginning ambulation. She also received MRI of the lumbar back on August 03, 2018 which revealed L5-S1 bulging disc o the right. Orthopedics was consulted regarding this finding and they did see patient during the afternoon of August 04, 2018. At that time Dr. Garcia to patient and stated he would speak to Dr. Justice. At this point I am ready for dismissal of the patient wish short-term management of her pain with hydrocodone. She will most likely need to be followed up outpatient with pain management such as spinal injections and ultimately see Dr. Justice for his recommendation. Labs Laboratory Tests 08/02/18 15:14: Red Cell Distribution Width 15.4H, Mean Platelet Volume 11.9H, Chloride Level 108H, Carbon Dioxide Level 20L, Glucose Level 318H 08/02/18 15:34: Arterial Blood pH 7.27*L, Arterial Blood Partial Pressure CO2 48H, Arterial Blood Partial Pressure O2 120H, Arterial Blood HCO3 22L, Arterial Blood Base Excess -4.3L 08/02/18 15:48: Urine Protein 2+H, Urine Glucose (UA) 4+H, Urine RBC (Auto) 1+H, Urine Opiates Screen POSITIVEH, Ur Tricyclic Antidepressants Screen POSITIVEH, Urine Benzodiazepines Screen POSITIVEH 08/02/18 22:35: Glucometer 278H 08/03/18 04:10: Red Cell Distribution Width 15.1H, Mean Platelet Volume 11.4H, Neutrophils (%) ( Auto) 79H, Lymphocytes # (Auto) 0.7L, Chloride Level 108H, Glucose Level 257H, Calcium Level 8.3L, Total Protein 6.0L 08/03/18 07:44: Glucometer 215H 08/03/18 12:28: Glucometer 232H 08/03/18 16:31: Glucometer 219H 08/03/18 19:55: Glucometer 190H 08/04/18 00:54: Glucometer 225H 08/04/18 04:18: Glucometer 167H 08/04/18 04:20: Red Blood Count 4.27L, Red Cell Distribution Width 15.5H, Mean Platelet Volume 11.9H, Blood Urea Nitrogen 20H, Glucose Level 175H 08/04/18 08:34: Glucometer 405*H 08/04/18 12:13: Glucometer 155H Procedures None. Discharge Physical Examination Allergies: Coded Allergies: gabapentin (Unverified Allergy, Unknown, 06/03/14) morphine (Unverified Allergy, Unknown, 06/03/14) Vitals & I&Os Vital Signs Date Time Temp Pulse Resp B/P (MAP) Pulse Ox O2 Delivery O2 Flow Rate FiO2 08/04/18 12:00 98.3 90 22 192/87 (122) 95 Room Air 08/03/18 06:00 2.00 General Appearance: No Acute Distress Respiratory: Clear to Auscultation Cardiovascular: Regular Rate Extremities: Other (tenderness as previous at the right lumbar sacral region.) Skin: No Rashes Discharge Home Medications Reviewed and agree with Discharge Medication list on patient's Discharge Instruction sheet Instructions to Patient/Family Please see electronic discharge instructions given to patient. Clinical Quality Measures DVT/VTE Risk/Contraindication: Risk Factor Score Per Nursin RFS Level Per Nursing on Admit: 4+=Very High LUCIO FINLEY MD Aug 04, 2018 15:41
[2018-08-04 16:33] VITALS: BP 192/87
--- NOTE | 2018-08-04 16:33 | NUR ---
DISCHARGE INSTRUCTIONS GIVEN TO PATIENT AND TIME ALLOWED FOR QUESTIONS. IV REMOVED WITH CATHETER INTACT. PATIENT IS COMPLAINING OF BACK PAIN. PATIENT LEFT VIA WHEELCHAIR ACCOMPANIED BY STAFF AND ADULT CHILD. LEFT IN PRIVATE VEHICLE.
== END 2018-08-04 16:33 | disposition home or self-care (01) | DRG 552 ==
LOC: EDUNIT# 13:31 → ER 13:32 → ICU 17:20 → 4TH 08-03 09:45
PROVIDERS: ADMIT Internal Medicine; ATTEND Internal Medicine
DX: M51.16 Intervertebral disc disorders with radiculopathy, lumbar region (principal); R41.82 Altered mental status, unspecified; T50.905A Adverse effect of unspecified drugs, medicaments and biological substances, initial encounter; E66.01 Morbid (severe) obesity due to excess calories; Z68.41 Body mass index [BMI] 40.0-44.9, adult; E11.9 Type 2 diabetes mellitus without complications; I10 Essential (primary) hypertension; F15.90 Other stimulant use, unspecified, uncomplicated; K52.9 Noninfective gastroenteritis and colitis, unspecified; M19.91 Primary osteoarthritis, unspecified site; M79.7 Fibromyalgia; F41.9 Anxiety disorder, unspecified; F32.9 Major depressive disorder, single episode, unspecified; G47.33 Obstructive sleep apnea (adult) (pediatric); Z98.84 Bariatric surgery status
CPT/HCPCS: 36415; 51701; 70450; 72131; 72148; 80048; 80053; 80306; 81000; 82805; 82962; 83735; 84100; 85025; 93005

== ENCOUNTER 2020-11-21 20:08 | Emergency (ER) | payer MEDICARE ==
[~2020-11-21] VITALS: Ht 167 cm; Wt 106.0 kg
[~2020-11-21 20:08] MED LIST changes: +ACHYD1T PO; +AMLO-250 PO; -AMLO5TAB2 PO; +CLIN300C3 PO; +CLN.1T PO; +GLIM4TAB5 PO; -HYDR-3820 PO; -LOSA100T28 PO; +LOSA100T57 PO; +MELO15TA39 PO; +METF-865 PO; +NAPR-1071 PO; -NAPR500T PO; -OXYC-197 PO; +OXYC1TAB87 PO; -PIOG30TA26 PO; +PIOG30TA71 PO
--- NOTE | 2020-11-21 20:30 | ED General ---
General Stated Complaint: PAIN ALL OVER BODY Source of Information: Patient, Old Records History of Present Illness Date Seen by Provider: Nov 21, 2020 Time Seen by Provider: 20:30 Initial Comments This is a 60-year-old female who presented to the ER via POV with her sister for generalized body pain. Daughter states that she received a phone call from her nephew this afternoon and could hear her mom in a background moaning out in pain. Stated he should check on her when she gets off work. After she got off work daughter states that she was moving around in bed and moaning in pain. Allergies and Home Medications Allergies Coded Allergies: gabapentin (Unverified Allergy, Unknown, 06/03/14) morphine (Unverified Allergy, Unknown, 06/03/14) Home Medications Amlodipine Besylate 5 Mg Tablet, 5 MG PO DAILY, (Reported) LAST FILLED #30 05-21-18 Baclofen 20 Mg Tablet, 20 MG PO TID PRN for MUSCLE SPASMS, (Reported) Clonidine HCl 0.1 Mg Tablet, 0.1 MG PO TID PRN for ATTENTION, (Reported) Doxepin HCl 100 Mg Capsule, 200 MG PO HS, (Reported) TAKES 2 (100MG) CAPSULES Doxepin HCl 100 Mg Capsule, 100 MG PO DAILY, (Reported) Fluvoxamine Maleate 100 Mg Tablet, 200 MG PO HS, (Reported) TAKES 2 (100MG) TABLETS Fluvoxamine Maleate 100 Mg Tablet, 100 MG PO DAILY, (Reported) Glimepiride 4 Mg Tablet, 4 MG PO BID, (Reported) Lorazepam 2 Mg Tablet, 2 MG PO 0600,1600, (Reported) Lorazepam 2 Mg Tablet, 1 MG PO 1200, (Reported) TAKES 1/2 (2MG) TABLET Metformin HCl 500 Mg Tab.er.24h, 500 MG PO DAILY, (Reported) Pioglitazone HCl 30 Mg Tablet, 30 MG PO DAILY, (Reported) Triamcinolone Acet 15 Gm Cr, TOP BID PRN for RASH/IRRITATION, (Reported) Zolpidem Tartrate 10 Mg Tablet, 10 MG PO HS PRN for SLEEP, (Reported) Past Begxvel-Sdjscm-Hkllsv Hx Patient Social History Recent Hopitalizations: Yes ([place]STRIC [place]G [place]) Immunizations Up To Date Tetanus Booster (TDap): Unknown Date of Pneumonia Vaccine: Apr 18, 2014 Date of Influenza Vaccine: Apr 16, 2014 Seasonal Allergies Seasonal Allergies: Yes (environmental) Past Medical History Surgeries: Yes (GASTRIC BYPASS/LEFT WRIST FX) Abdominal, Gallbladder, Orthopedic, Tonsillectomy Respiratory: No Currently Using CPAP: No Currently Using BIPAP: No Cardiac: Yes Hypertension Neurological: Yes 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 Disorders: No 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 Disorders: Denies 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 HIV/AIDS: No UTI-Chronic Gastrointestinal: Yes (SIDE EFFECTS FROM GASTRIC BYPASS) Gastrointestinal Bleed, Chronic Diarrhea Musculoskeletal: Yes (lt wrist with external imobilizer hardware) Arthritis, Fibromyalgia Endocrine: Yes Diabetes, Non-Insulin dep Tinnitis Loss of Vision: Denies Hearing Impairment: Denies Cancer: No Cervical Psychosocial: Yes Sleep Difficulties, Anxiety, Depression Integumentary: Yes (chronic skin rash) Blood Disorders: Yes Adverse Reaction/Blood Tranf: No Family Medical History No Pertinent Family Hx Physical Exam Vital Signs Vital Signs - First Documented 11/21/20 20:28 Temp 36.4 Pulse 107 Resp 20 B/P (MAP) 171/98 (122) Pulse Ox 100 O2 Delivery Room Air Capillary Refill : Height, Weight, BMI Height: 5'7.00" Weight: 253lbs. 0.0oz. 114.238526oy; 39.2 BMI Method:Stated Progress/Results/Core Measures Suspected Sepsis SIRS Temperature: Pulse: Respiratory Rate: Laboratory Tests 11/21/20 20:35: White Blood Count 7.4 Blood Pressure / Mean: Laboratory Tests 11/21/20 20:35: Creatinine 0.90, Platelet Count 330, Total Bilirubin 0.7 Results/Orders Lab Results Laboratory Tests Test 11/21/20 20:35 11/21/20 20:44 11/21/20 20:58 11/21/20 21:50 Range/Units White Blood Count 7.4 4.3-11.0 10^3/uL Red Blood Count 5.23 H 3.80-5.11 10^6/uL Hemoglobin 15.2 11.5-16.0 g/dL Hematocrit 46 35-52 % Mean Corpuscular Volume 87 80-99 fL Mean Corpuscular Hemoglobin 29 25-34 pg Mean Corpuscular Hemoglobin Concent 33 32-36 g/dL Red Cell Distribution Width 13.1 10.0-14.5 % Platelet Count 330 130-400 10^3/uL Mean Platelet Volume 12.3 H 9.0-12.2 fL Immature Granulocyte % (Auto) 0 % Neutrophils (%) (Auto) 75 42-75 % Lymphocytes (%) (Auto) 14 12-44 % Monocytes (%) (Auto) 10 0-12 % Eosinophils (%) (Auto) 0 0-10 % Basophils (%) (Auto) 1 0-10 % Neutrophils # (Auto) 5.5 1.8-7.8 10^3/uL Lymphocytes # (Auto) 1.0 1.0-4.0 10^3/uL Monocytes # (Auto) 0.8 0.0-1.0 10^3/uL Eosinophils # (Auto) 0.0 0.0-0.3 10^3/uL Basophils # (Auto) 0.0 0.0-0.1 10^3/uL Immature Granulocyte # (Auto) 0.0 0.0-0.1 10^3/uL Sodium Level 136 135-145 MMOL/L Potassium Level 4.7 3.6-5.0 MMOL/L Chloride Level 101 98-107 MMOL/L Carbon Dioxide Level 14 L 21-32 MMOL/L Anion Gap 21 H 5-14 MMOL/L Blood Urea Nitrogen 15 7-18 MG/DL Creatinine 0.90 0.60-1.30 MG/DL Estimat Glomerular Filtration Rate > 60 BUN/Creatinine Ratio 17 Glucose Level 375 H 70-105 MG/DL Calcium Level 9.9 8.5-10.1 MG/DL Corrected Calcium 8.5-10.1 MG/DL Total Bilirubin 0.7 0.1-1.0 MG/DL Aspartate Amino Transf (AST/SGOT) 10 5-34 U/L Alanine Aminotransferase (ALT/SGPT) 20 0-55 U/L Alkaline Phosphatase 94 40-136 U/L Total Creatine Kinase 33 29-168 U/L Troponin I < 0.028 <0.028 NG/ML Total Protein 7.8 6.4-8.2 GM/DL Albumin 4.7 H 3.2-4.5 GM/DL Lipase 16 8-78 U/L Thyroid Stimulating Hormone (TSH) 1.25 0.35-4.94 UIU/ML Glucometer 368 H 70-110 MG/DL Urine Color YELLOW Urine Clarity CLEAR Urine pH 6.0 5-9 Urine Specific Volin 1.025 H 1.016-1.022 Urine Protein NEGATIVE NEGATIVE Urine Glucose (UA) 3+ H NEGATIVE Urine Ketones 3+ H NEGATIVE Urine Nitrite NEGATIVE NEGATIVE Urine Bilirubin 2+ H NEGATIVE Urine Urobilinogen 0.2 < = 1.0 MG/DL Urine Leukocyte Esterase NEGATIVE NEGATIVE Urine RBC (Auto) NEGATIVE NEGATIVE Urine RBC NONE /HPF Urine WBC 0-2 /HPF Urine Crystals PRESENT H /LPF Urine Amorphous Sediment MOD MANJINDER URATES H /LPF Urine Bacteria TRACE /HPF Urine Casts PRESENT /LPF Urine Hyaline Casts 5-10 H /LPF Urine Mucus SMALL H /LPF Urine Culture Indicated NO Urine Opiates Screen NEGATIVE NEGATIVE Urine Oxycodone Screen NEGATIVE NEGATIVE Urine Methadone Screen NEGATIVE NEGATIVE Urine Propoxyphene Screen NEGATIVE NEGATIVE Urine Barbiturates Screen NEGATIVE NEGATIVE Ur Tricyclic Antidepressants Screen POSITIVE H NEGATIVE Urine Phencyclidine Screen NEGATIVE NEGATIVE Urine Amphetamines Screen NEGATIVE NEGATIVE Urine Methamphetamines Screen NEGATIVE NEGATIVE Urine Benzodiazepines Screen POSITIVE H NEGATIVE Urine Cocaine Screen NEGATIVE NEGATIVE Urine Cannabinoids Screen NEGATIVE NEGATIVE Blood Gas Puncture Site L RADIAL Blood Gas Patient Temperature 36.4 Arterial Blood pH 7.50 H 7.37-7.43 Arterial Blood Partial Pressure CO2 18 *L 35-45 MMHG Arterial Blood Partial Pressure O2 83 79-93 MMHG Arterial Blood HCO3 14 *L 23-27 MMOL/L Arterial Blood Total CO2 14.5 L 21.0-31.0 MMOL/L Arterial Blood Oxygen Saturation 97 94-100 % Arterial Blood Base Excess -8.9 L -2.5-2.5 MMOL/L Luis A Test YES-POS Blood Gas Ventilator Setting NO Blood Gas Inspired Oxygen ROOM AIR My Orders Orders - MEERA LONG APRN Ua Culture If Indicated (11/21/20 20:29) Drug Screen Stat (Urine) (11/21/20 20:29) Ct Head Wo-R/O Stroke (11/21/20 20:51) Cbc With Automated Diff (11/21/20 20:51) Protime With Inr (11/21/20 20:51) Partial Thromboplastin Time (11/21/20 20:51) Comprehensive Metabolic Panel (11/21/20 20:51) Fibrin Degradation Products (11/21/20 20:51) Troponin I (11/21/20 20:51) Chest 1 View, Ap/Pa Only (11/21/20 20:51) Ekg Tracing (11/21/20 20:51) Accucheck Stat ONCE (11/21/20 20:51) Vital Signs Stroke Patient Q15M (11/21/20 20:51) O2 (11/21/20 20:51) Intake & Output 06,14,22 (11/21/20 20:51) Monitor-Rhythm Ecg Trace Only (11/21/20 20:51) Dysphagia Screening Tool (11/21/20 20:51) Creatine Kinase (11/21/20 21:22) Ondansetron Injection (Zofran Injectio (11/21/20 21:45) Lorazepam Injection (Ativan Injection) (11/21/20 21:45) Lipase (11/21/20 21:34) Ns Iv 1000 Ml (Sodium Chloride 0.9%) (11/21/20 21:35) Arterial Blood Gas (11/21/20 21:35) Thyroid Stimulating Hormone (11/21/20 21:50) Medications Given in ED Current Medications Medications Dose Ordered Sig/Raquel Route Start Time Stop Time Status Last Admin Dose Admin Lorazepam 2 mg ONCE ONCE IVP 11/21/20 21:45 11/21/20 21:46 DC 11/21/20 21:40 2 MG Ondansetron HCl 4 mg ONCE ONCE IVP 11/21/20 21:45 11/21/20 21:46 DC 11/21/20 21:38 4 MG Vital Signs/I&O 11/21/20 20:28 Temp 36.4 Pulse 107 Resp 20 B/P (MAP) 171/98 (122) Pulse Ox 100 O2 Delivery Room Air Capillary Refill : Departure Impression Primary Impression: Severe anxiety with panic Disposition: 01 HOME, SELF-CARE Condition: Improved Departure-Patient Inst. Decision time for Depature: 22:27 Referrals: LUCIO FINLEY MD (PCP/Family) Primary Care Physician Patient Instructions: Anxiety, Adult ED Add. Discharge Instructions: Plan: 1. Take your Ativan three times a day as directed. 2. Follow up with Dr. Finley on November 23. Call office to schedule. 3. Return to ER for any new, concerning, or worsening symptoms. MEERA LONG FAMILY DAY CARER Nov 21, 2020 20:30
[2020-11-21 20:58] LABS: BASOPHILS % (AUTO) 1 % (0-10); EOSINOPHILS % (AUTO) 0 % (0-10); HEMATOCRIT 46 % (35-52); HEMOGLOBIN 15.2 g/dL (11.5-16.0); LYMPHOCYTES % (AUTO) 14 % (12-44); MEAN CORPUSCULAR HEMOGLOBIN 29 pg (25-34); MEAN CORPUSCULAR HGB CONC 33 g/dL (32-36); MEAN CORPUSCULAR VOLUME 87 fL (80-99); MEAN PLATELET VOLUME 12.3 fL (9.0-12.2); MONOCYTES # (AUTO) 0.8 10^3/uL (0.0-1.0); MONOCYTES % (AUTO) 10 % (0-12); NEUTROPHILS # (AUTO) 5.5 10^3/uL (1.8-7.8); NEUTROPHILS % (AUTO) 75 % (42-75); PLATELET COUNT 330 10^3/uL (130-400); WHITE BLOOD COUNT 7.4 10^3/uL (4.3-11.0)
[2020-11-21 21:05] LABS: BILIRUBIN,URINE 2+ (NEGATIVE); CLARITY,URINE CLEAR; COLOR,URINE YELLOW; GLUCOSE, URINE (UA) 3+ (NEGATIVE); KETONES,URINE 3+ (NEGATIVE); LEUKOCYTE ESTERASE ,URINE NEGATIVE (NEGATIVE); NITRITE,URINE NEGATIVE (NEGATIVE); PROTEIN,URINE NEGATIVE (NEGATIVE)
[2020-11-21 21:17] LABS: ALBUMIN 4.7 GM/DL (3.2-4.5); CHLORIDE 101 MMOL/L (98-107); POTASSIUM 4.7 MMOL/L (3.6-5.0); SODIUM 136 MMOL/L (135-145)
[2020-11-21 21:18] LABS: CALCIUM 9.9 MG/DL (8.5-10.1)
[2020-11-21 21:19] LABS: GLUCOSE 375 MG/DL (70-105); TOTAL PROTEIN 7.8 GM/DL (6.4-8.2)
[2020-11-21 21:20] LABS: CARBON DIOXIDE 14 MMOL/L (21-32)
[2020-11-21 21:21] LABS: BILIRUBIN,TOTAL 0.7 MG/DL (0.1-1.0)
[2020-11-21 21:23] LABS: ALKALINE PHOSPHATASE 94 U/L (40-136); GFR ESTIMATED > 60
[2020-11-21 21:24] LABS: BUN/CREATININE RATIO 17
[2020-11-21 21:25] LABS: AMORPHOUS SEDIMENT,UR MOD AMOR URATES /LPF; BACTERIA,URINE TRACE /HPF; WBC,URINE 0-2 /HPF
[2020-11-21 21:26] LABS: ALANINE AMINOTRANSFERASE 20 U/L (0-55)
[2020-11-21 21:27] LABS: AMPHETAMINE SCREEN, URINE NEGATIVE (NEGATIVE); BARBITURATE SCREEN URINE NEGATIVE (NEGATIVE); BENZODIAZEPINES SCREEN URINE POSITIVE (NEGATIVE); CANNABINOID SCREEN, URINE NEGATIVE (NEGATIVE); COCAINE SCREEN URINE NEGATIVE (NEGATIVE); METHADONE STAT NEGATIVE (NEGATIVE); METHAMPHETAMINE SCREEN URINE S NEGATIVE (NEGATIVE); OPIATE SCREEN URINE NEGATIVE (NEGATIVE); OXYCODONE STAT NEGATIVE (NEGATIVE); PROPOXYPHENE STAT NEGATIVE (NEGATIVE); TRICYCLIC ANTIDEPRESSANTS SCRE POSITIVE (NEGATIVE)
[2020-11-21] MEDS ORDERED: NS IV 1000 ML 1,000 ML IV STA (21:35)
--- NOTE | 2020-11-21 21:41 | Diagnostic Imaging Report ---
EXAMINATION: Chest 1 view HISTORY: Altered mental status COMPARISON: None available. FINDINGS: The lungs are clear without edema or pneumonia. No pleural effusion or pneumothorax. Heart size is normal. IMPRESSION: 1. Clear lungs. Dictated by: Dictated on workstation # [id number]
--- NOTE | 2020-11-21 21:42 | Diagnostic Imaging Report ---
EXAMINATION: CT head without contrast. TECHNIQUE: Multiple contiguous axial images were obtained through the brain without the use of intravenous contrast. All CT scans use one or more of the following dose optimizing techniques: automated exposure control, MA and/or KvP adjustment based on patient size and exam type or iterative reconstruction. HISTORY: Altered mental status COMPARISON: 08/02/2018 FINDINGS: The chavez-white matter differentiation is normal. No mass effect or midline shift. The ventricles are normal in size and configuration. Basilar cisterns are patent. There are no intra- or extra-axial fluid collections. There is no intracranial hemorrhage. The orbits are normal. There is maxillary sinus mucosal disease with bilateral maxillary antrostomies. Mastoid air cells are clear. No soft tissue abnormality is seen. No osseus lesions or fractures are seen. IMPRESSION: 1. No acute intracranial abnormality. Dictated by: Dictated on workstation # [id number]
[2020-11-21] MEDS ORDERED: ONDANSETRON 4 MG/2 ML (SDV) Z0FRAN IVP ONE (21:45)
[2020-11-21] MEDS ORDERED: LORazepam INJ 2 MG/ML (ATIVAN) VIAL IVP ONE (21:45)
[2020-11-21 21:57] LABS: ABG BASE EXCESS -8.9 MMOL/L (-2.5-2.5); ABG OXYGEN SATURATION 97 % (94-100); ABG PO2 83 MMHG (79-93); ABG TCO2 14.5 MMOL/L (21.0-31.0)
[2020-11-21 21:58] LABS: ABG PCO2 18 MMHG (35-45)
[2020-11-21 21:59] LABS: ALLENS TEST YES-POS; INSPIRED O2 ROOM AIR; PATIENT TEMP 36.4; VENTILATOR NO
[2020-11-21 23:06] VITALS: BP 161/91
== END 2020-11-21 23:13 | disposition home or self-care (01) ==
LOC: EDUNIT# 20:08 → ER 20:09
DX: F41.0 Panic disorder [episodic paroxysmal anxiety] (principal); I10 Essential (primary) hypertension; F32.9 Major depressive disorder, single episode, unspecified; E11.9 Type 2 diabetes mellitus without complications; Z88.5 Allergy status to narcotic agent; Z88.8 Allergy status to other drugs, medicaments and biological substances; Z79.84 Long term (current) use of oral hypoglycemic drugs; Z79.899 Other long term (current) drug therapy
CPT/HCPCS: 36415; 51701; 70450; 71045; 80053; 80306; 81000; 82550; 82805; 82947; 83690; 84443; 84484; 85025; 93041

== ENCOUNTER 2021-03-08 17:07 | Emergency (ER) | payer MEDICARE ==
[~2021-03-08] VITALS: Ht 170.2 cm; Wt 106.0 kg
[2021-03-08] MEDS ORDERED: KETOROLAC 30 MG/ML VIAL IVP ONE (17:30)
[2021-03-08] MEDS ORDERED: LACTATED RINGERS 1,000 ML IV SCH (17:30)
[2021-03-08] MEDS ORDERED: ONDANSETRON 4 MG/2 ML (SDV) Z0FRAN IVP ONE (17:30)
--- NOTE | 2021-03-08 17:30 | ED General ---
General Stated Complaint: VOMITING, TROUBLE URINATING Source of Information: Patient Exam Limitations: No Limitations History of Present Illness Date Seen by Provider: Mar 08, 2021 Time Seen by Provider: 17:03 Initial Comments to ER with reports of vomiting, trouble urinating. She has some altered mental status as well. She is a poor historian. It is unclear when this started. Timing/Duration: 1-2 Days Severity: Moderate Associated Systoms: Denies Symptoms Allergies and Home Medications Allergies Coded Allergies: gabapentin (Unverified Allergy, Unknown, 06/03/14) morphine (Unverified Allergy, Unknown, 06/03/14) Patient Home Medication List Home Medication List Reviewed: Yes Amlodipine Besylate (Amlodipine Besylate) 5 Mg Tablet, 5 MG PO DAILY, (Reported) Entered as Reported by: BLAIR YANEZ on 08/03/18 1209 Baclofen (Baclofen) 20 Mg Tablet, 20 MG PO TID PRN for MUSCLE SPASMS, (Reported) Entered as Reported by: BLAIR YANEZ on 04/18/16921 Clonidine HCl (Clonidine HCl) 0.1 Mg Tablet, 0.1 MG PO TID PRN for ATTENTION, (Reported) Entered as Reported by: BLAIR YANEZ on 08/03/18 115 Doxepin HCl (Doxepin HCl) 100 Mg Capsule, 200 MG PO HS, (Reported) Entered as Reported by: BLAIR YANEZ on 04/18/16921 Doxepin HCl (Doxepin HCl) 100 Mg Capsule, 100 MG PO DAILY, (Reported) Entered as Reported by: BLAIR YANEZ on 08/03/18 115 Fluvoxamine Maleate (Fluvoxamine Maleate) 100 Mg Tablet, 200 MG PO HS, (Reported) Entered as Reported by: BLAIR YANEZ on 04/18/16921 Fluvoxamine Maleate (Fluvoxamine Maleate) 100 Mg Tablet, 100 MG PO DAILY, (Reported) Entered as Reported by: BLAIR YANEZ on 08/03/18 115 Glimepiride (Glimepiride) 4 Mg Tablet, 4 MG PO BID, (Reported) Entered as Reported by: BLAIR YANEZ on 04/18/16921 Lorazepam (Lorazepam) 2 Mg Tablet, 2 MG PO 0600,1600, (Reported) Entered as Reported by: BLAIR YANEZ on 04/18/16921 Lorazepam (Lorazepam) 2 Mg Tablet, 1 MG PO 1200, (Reported) Entered as Reported by: BLAIR YANEZ on 08/03/181156 Metformin HCl (Metformin HCl ER) 500 Mg Tab.er.24h, 500 MG PO DAILY, (Reported) Entered as Reported by: BLAIR YANEZ on 08/03/181156 Pioglitazone HCl (Pioglitazone HCl) 30 Mg Tablet, 30 MG PO DAILY, (Reported) Entered as Reported by: BLAIR YANEZ on 04/18/16921 Triamcinolone Acet (Triamcinolone Acetonide 0.1% Cream) 15 Gm Cr, TOP BID PRN for RASH/IRRITATION, (Reported) Entered as Reported by: BLAIR YANEZ on 08/03/181156 Zolpidem Tartrate (Zolpidem Tartrate) 10 Mg Tablet, 10 MG PO HS PRN for SLEEP, (Reported) Entered as Reported by: BLAIR YANEZ on 08/03/181156 Review of Systems Review of Systems Constitutional: see HPI; No chills, No fever EENTM: see HPI Respiratory: no symptoms reported Cardiovascular: no symptoms reported Gastrointestinal: abdominal pain, nausea, vomiting Genitourinary: no symptoms reported Musculoskeletal: no symptoms reported Skin: no symptoms reported Psychiatric/Neurological: No Symptoms Reported Past Tghjmnh-Hqnqak-Lfmylc Hx Immunizations Up To Date Tetanus Booster (TDap): Unknown Seasonal Allergies Seasonal Allergies: Yes (environmental) Past Medical History Surgeries: Yes (GASTRIC BYPASS/LEFT WRIST FX) Abdominal, Gallbladder, Orthopedic, Tonsillectomy Respiratory: No Currently Using CPAP: No Currently Using BIPAP: No Cardiac: Yes Hypertension Neurological: Yes 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 Disorders: No 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 Disorders: 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 LVN History: Menopausal HIV/AIDS: No UTI-Chronic Gastrointestinal: Yes (SIDE EFFECTS FROM GASTRIC BYPASS) Gastrointestinal Bleed, Chronic Diarrhea Musculoskeletal: Yes (lt wrist with external imobilizer hardware) Arthritis, Fibromyalgia Endocrine: Yes Diabetes, Non-Insulin dep Tinnitis Loss of Vision: Denies Hearing Impairment: Denies Cancer: No Cervical Psychosocial: Yes Sleep Difficulties, Anxiety, Depression Integumentary: Yes (chronic skin rash) Blood Disorders: Yes Adverse Reaction/Blood Tranf: No Family Medical History No Pertinent Family Hx Physical Exam Vital Signs Vital Signs - First Documented 03/08/21 17:08 Temp 36.0 Pulse 90 Resp 22 B/P (MAP) 186/99 (128) Pulse Ox 98 O2 Delivery Room Air Capillary Refill : Height, Weight, BMI Height: 5'7.00" Weight: 253lbs. 0.0oz. [id number]; 38.00 BMI Method:Stated General Appearance: No Apparent Distress, WD/WN, Other (Delirious. Upon EMS arrival she is moaning very loudly, states "I have to pee". She states that she has been trying to pee but unable to. We subsequently did a straight catheter ization and drained 700 mL of clear yellow urine from the bladder. She has some superficial excoriations to the anterior lower abdomen as well as some vulvovaginal candidiasis. She keeps moaning "I have to pee" even after the catheterization. She knows that she is at the hospital. When asked what month or year it is she states "hospital". Continues to moan. When I asked her why she is yelling she states "I dont know") Neck: Full Range of Motion, Normal Inspection Respiratory: Chest Non Tender, No Accessory Muscle Use, No Respiratory Distress Cardiovascular: Regular Rate, Rhythm, Normal Peripheral Pulses Gastrointestinal: Soft, Tenderness Extremity: Normal Capillary Refill, Normal Inspection Neurologic/Psychiatric: Alert, Oriented x3 Skin: Normal Color, Warm/Dry Progress/Results/Core Measures Suspected Sepsis SIRS Temperature: Pulse: Respiratory Rate: Laboratory Tests 03/08/21 17:20: White Blood Count 5.1 Blood Pressure / Mean: Laboratory Tests 03/08/21 17:20: Creatinine 0.61, INR Comment 1.0, Platelet Count 226, Total Bilirubin 0.6 Results/Orders Lab Results Laboratory Tests Test 03/08/21 17:13 03/08/21 17:20 Range/Units Urine Color YELLOW Urine Clarity CLEAR Urine pH 6.0 5-9 Urine Specific Hooper 1.015 L 1.016-1.022 Urine Protein NEGATIVE NEGATIVE Urine Glucose (UA) 3+ H NEGATIVE Urine Ketones 2+ H NEGATIVE Urine Nitrite NEGATIVE NEGATIVE Urine Bilirubin NEGATIVE NEGATIVE Urine Urobilinogen 0.2 < = 1.0 MG/DL Urine Leukocyte Esterase NEGATIVE NEGATIVE Urine RBC (Auto) NEGATIVE NEGATIVE Urine RBC NONE /HPF Urine WBC NONE /HPF Urine Crystals NONE /LPF Urine Bacteria NEGATIVE /HPF Urine Casts NONE /LPF Urine Mucus NEGATIVE /LPF Urine Culture Indicated NO Urine Opiates Screen POSITIVE H NEGATIVE Urine Oxycodone Screen NEGATIVE NEGATIVE Urine Methadone Screen NEGATIVE NEGATIVE Urine Propoxyphene Screen NEGATIVE NEGATIVE Urine Barbiturates Screen NEGATIVE NEGATIVE Ur Tricyclic Antidepressants Screen NEGATIVE NEGATIVE Urine Phencyclidine Screen NEGATIVE NEGATIVE Urine Amphetamines Screen NEGATIVE NEGATIVE Urine Methamphetamines Screen NEGATIVE NEGATIVE Urine Benzodiazepines Screen POSITIVE H NEGATIVE Urine Cocaine Screen NEGATIVE NEGATIVE Urine Cannabinoids Screen NEGATIVE NEGATIVE White Blood Count 5.1 4.3-11.0 10^3/uL Red Blood Count 4.62 3.80-5.11 10^6/uL Hemoglobin 13.9 11.5-16.0 g/dL Hematocrit 42 35-52 % Mean Corpuscular Volume 91 80-99 fL Mean Corpuscular Hemoglobin 30 25-34 pg Mean Corpuscular Hemoglobin Concent 33 32-36 g/dL Red Cell Distribution Width 13.3 10.0-14.5 % Platelet Count 226 130-400 10^3/uL Mean Platelet Volume 11.0 9.0-12.2 fL Immature Granulocyte % (Auto) 0 % Neutrophils (%) (Auto) 72 42-75 % Lymphocytes (%) (Auto) 17 12-44 % Monocytes (%) (Auto) 9 0-12 % Eosinophils (%) (Auto) 1 0-10 % Basophils (%) (Auto) 1 0-10 % Neutrophils # (Auto) 3.7 1.8-7.8 10^3/uL Lymphocytes # (Auto) 0.9 L 1.0-4.0 10^3/uL Monocytes # (Auto) 0.5 0.0-1.0 10^3/uL Eosinophils # (Auto) 0.1 0.0-0.3 10^3/uL Basophils # (Auto) 0.0 0.0-0.1 10^3/uL Immature Granulocyte # (Auto) 0.0 0.0-0.1 10^3/uL Prothrombin Time 13.2 12.2-14.7 SEC INR Comment 1.0 0.8-1.4 Activated Partial Thromboplast Time 24 24-35 SEC Sodium Level 137 135-145 MMOL/L Potassium Level 4.4 3.6-5.0 MMOL/L Chloride Level 103 98-107 MMOL/L Carbon Dioxide Level 20 L 21-32 MMOL/L Anion Gap 14 5-14 MMOL/L Blood Urea Nitrogen 10 7-18 MG/DL Creatinine 0.61 0.60-1.30 MG/DL Estimat Glomerular Filtration Rate 99 BUN/Creatinine Ratio 16 Glucose Level 250 H 70-105 MG/DL Calcium Level 8.8 8.5-10.1 MG/DL Corrected Calcium 9.0 8.5-10.1 MG/DL Total Bilirubin 0.6 0.1-1.0 MG/DL Aspartate Amino Transf (AST/SGOT) 15 5-34 U/L Alanine Aminotransferase (ALT/SGPT) 27 0-55 U/L Alkaline Phosphatase 112 40-136 U/L Total Protein 6.2 L 6.4-8.2 GM/DL Albumin 3.7 3.2-4.5 GM/DL My Orders Orders - KARYN ROSS SALES [employer]UITMENT REPRESENTATIVE Cbc With Automated Diff (03/08/21 17:18) Comprehensive Metabolic Panel (03/08/21 17:18) Blood Culture (03/08/21 17:18) Sputum Culture (03/08/21 17:18) Urinalysis (03/08/21 17:18) Urine Culture (03/08/21 17:18) Protime With Inr (03/08/21 17:18) Partial Thromboplastin Time (03/08/21 17:18) Chest 1 View, Ap/Pa Only (03/08/21 17:18) Ed Iv/Invasive Line Start (03/08/21 17:18) Vital Signs Adult Sepsis Patie Q15M (03/08/21 17:18) O2 (03/08/21 17:18) Remove Rings In Anticipation O (03/08/21 17:18) Lactic Acid Analyzer (03/08/21 17:18) Ct Head Wo (03/08/21 17:18) Ct Abd/Pelvis Wo(Kidney Stone) (03/08/21 17:18) Ketorolac Injection (Toradol Injection) (03/08/21 17:30) Lactated Ringers (Lr 1000 Ml Iv Solution (03/08/21 17:30) Ondansetron Injection (Zofran Injectio (03/08/21 17:30) Lorazepam Injection (Ativan Injection) (03/08/21 17:45) Drug Screen Stat (Urine) (03/08/21 17:40) Promethazine Injection (Phenergan Injec (03/08/21 18:45) Medications Given in ED Current Medications Medications Dose Ordered Sig/Raquel Route Start Time Stop Time Status Last Admin Dose Admin Ketorolac Tromethamine 15 mg ONCE ONCE IVP 03/08/21 17:30 03/08/21 17:31 DC 03/08/21 17:32 15 MG Lorazepam 2 mg ONCE ONCE IVP 03/08/21 17:45 03/08/21 17:46 DC 03/08/21 17:45 2 MG Ondansetron HCl 8 mg ONCE ONCE IVP 03/08/21 17:30 03/08/21 17:31 DC 03/08/21 17:32 8 MG Promethazine HCl 25 mg ONCE ONCE IVP 03/08/21 18:45 03/08/21 18:46 DC 03/08/21 18:52 25 MG Vital Signs/I&O 03/08/21 17:08 Temp 36.0 Pulse 90 Resp 22 B/P (MAP) 186/99 (128) Pulse Ox 98 O2 Delivery Room Air Capillary Refill : Departure Communication (Admissions) Family Conversation In reviewing her previous visits from earlier this year she had a similar presentation screaming "it hurts". She was given 2 mg of lorazepam IV push as she was noted to have been prescribed Ativan 1 mg 3 times a day but she had been out. When we again asked her today if she was out of her Ativan she shakes her head yes. 1855-patient is now sitting up in bed talking and mentating normally. She has a GCS of 15 alert and oriented. She states that she is low on her Ativan supply and has not taken any since this morning because of that. However, she does still have a few at home though she would like some more. Advised her any additional prescriptions will need to come from [facility]. Upon review of K tracks it shows that she actually has 2 mg tablets quantity of 75 which is a 30-day supply of that was filled on February 16. Impression Primary Impression: Benzodiazepine withdrawal Additional Impression: Benzodiazepine misuse Disposition: HOME, SELF-CARE Condition: Stable Departure-Patient Inst. Decision time for Depature: 17:41 Referrals: LUCIO FINLEY MD (PCP/Family) Primary Care Physician Patient Instructions: Prescription Drug Misuse Add. Discharge Instructions: 1. Take your Ativan as directed, not more than directed. Follow-up with [facility]. Return to ER for any concerns. If you are getting low on your Ativan prescription then you will need to call [facility] for any additional pills. KARYN ROSS APRN Mar 08, 2021 17:30
[2021-03-08 17:32] LABS: BILIRUBIN,URINE NEGATIVE (NEGATIVE); CLARITY,URINE CLEAR; COLOR,URINE YELLOW; GLUCOSE, URINE (UA) 3+ (NEGATIVE); KETONES,URINE 2+ (NEGATIVE); LEUKOCYTE ESTERASE ,URINE NEGATIVE (NEGATIVE); NITRITE,URINE NEGATIVE (NEGATIVE); PROTEIN,URINE NEGATIVE (NEGATIVE)
[2021-03-08 17:39] LABS: ALBUMIN 3.7 GM/DL (3.2-4.5); POTASSIUM 4.4 MMOL/L (3.6-5.0)
[2021-03-08 17:40] LABS: BASOPHILS % (AUTO) 1 % (0-10); EOSINOPHILS # (AUTO) 0.1 10^3/uL (0.0-0.3); EOSINOPHILS % (AUTO) 1 % (0-10); HEMATOCRIT 42 % (35-52); HEMOGLOBIN 13.9 g/dL (11.5-16.0); LYMPHOCYTES # (AUTO) 0.9 10^3/uL (1.0-4.0); LYMPHOCYTES % (AUTO) 17 % (12-44); MEAN CORPUSCULAR HEMOGLOBIN 30 pg (25-34); MEAN CORPUSCULAR HGB CONC 33 g/dL (32-36); MEAN CORPUSCULAR VOLUME 91 fL (80-99); MONOCYTES # (AUTO) 0.5 10^3/uL (0.0-1.0); MONOCYTES % (AUTO) 9 % (0-12); NEUTROPHILS # (AUTO) 3.7 10^3/uL (1.8-7.8); NEUTROPHILS % (AUTO) 72 % (42-75); PLATELET COUNT 226 10^3/uL (130-400); WHITE BLOOD COUNT 5.1 10^3/uL (4.3-11.0)
[2021-03-08 17:41] LABS: CALCIUM 8.8 MG/DL (8.5-10.1)
[2021-03-08 17:41] LABS: BACTERIA,URINE NEGATIVE /HPF
[2021-03-08 17:42] LABS: TOTAL PROTEIN 6.2 GM/DL (6.4-8.2)
[2021-03-08 17:43] LABS: BILIRUBIN,TOTAL 0.6 MG/DL (0.1-1.0); PROTHROMBIN TIME PATIENT 13.2 SEC (12.2-14.7)
[2021-03-08 17:45] LABS: CREATININE SERUM 0.61 MG/DL (0.60-1.30)
[2021-03-08] MEDS ORDERED: LORazepam INJ 2 MG/ML (ATIVAN) VIAL IVP ONE (17:45)
[2021-03-08 17:58] LABS: AMPHETAMINE SCREEN, URINE NEGATIVE (NEGATIVE); BARBITURATE SCREEN URINE NEGATIVE (NEGATIVE); BENZODIAZEPINES SCREEN URINE POSITIVE (NEGATIVE); CANNABINOID SCREEN, URINE NEGATIVE (NEGATIVE); COCAINE SCREEN URINE NEGATIVE (NEGATIVE); METHADONE STAT NEGATIVE (NEGATIVE); METHAMPHETAMINE SCREEN URINE S NEGATIVE (NEGATIVE); OPIATE SCREEN URINE POSITIVE (NEGATIVE); OXYCODONE STAT NEGATIVE (NEGATIVE); PROPOXYPHENE STAT NEGATIVE (NEGATIVE); TRICYCLIC ANTIDEPRESSANTS SCRE NEGATIVE (NEGATIVE)
--- NOTE | 2021-03-08 18:30 | Diagnostic Imaging Report ---
CHEST 1 VIEW, AP/PA ONLY Indication: Sepsis Comparison: 11/21/2020 Findings: No focal airspace disease in the visualized lungs. Please note that the posterior lower lobes are poorly evaluated by portable radiography. No pleural effusion or pneumothorax. Normal cardiomediastinal silhouette. Impression: 1. No acute cardiopulmonary process by portable radiography. Dictated by: Dictated on workstation # [id number]
--- NOTE | 2021-03-08 18:30 | Diagnostic Imaging Report ---
PROCEDURE: CT urinary tract, rule out kidney stone. TECHNIQUE: Multiple contiguous axial images were obtained through the abdomen and pelvis without the use of intravenous contrast. Auto Exposure Controls were utilized during the CT exam to meet ALARA standards for radiation dose reduction. INDICATION: Altered mental status. Suprapubic abdominal pain. Nausea and vomiting and dysuria with confusion. Weakness and dizziness. COMPARISON: None. FINDINGS: The lung bases are clear. The heart is normal in size. There is a small hiatal hernia. The liver demonstrates diffuse fatty infiltration. The spleen appears normal. The pancreas is mildly atrophic but otherwise appears normal. The adrenal glands appear normal. The kidneys demonstrate no calculi or hydronephrosis. The aorta is normal in caliber. No adenopathy is seen. The bowel loops are nondistended without obstruction. The appendix is normal. There is moderate stool in the colon. No free fluid or free air is seen. There is a small fat-containing periumbilical hernia with no bowel involvement. The urinary bladder is mildly distended with no wall thickening identified. No acute osseous abnormality is seen. There are degenerative changes in the spine. IMPRESSION: 1. Moderate stool in the colon, please correlate with any history of constipation. 2. Small hiatal hernia. 3. Hepatic steatosis. 4. Small fat-containing periumbilical hernia with no bowel involvement. Dictated by: Dictated on workstation # [id number]
--- NOTE | 2021-03-08 18:34 | Diagnostic Imaging Report ---
PROCEDURE: CT head without contrast. TECHNIQUE: Multiple contiguous axial images were obtained through the brain without the use of intravenous contrast. Auto Exposure Controls were utilized during the CT exam to meet ALARA standards for radiation dose reduction. INDICATION: Altered mental status. COMPARISON: CT head of 11/21/2020. FINDINGS: No intracranial hyperdense hemorrhage or space-occupying mass. No hydrocephalus or midline shift. [place]-white matter differentiation is well preserved. Mild global atrophy is unchanged. Minimal periventricular white matter hypoattenuation is similar and most compatible with chronic microvascular ischemic disease. Bilateral maxillary antrectomies have been performed. Chronic mucosal thickening and opacification of the left sphenoid sinus is unchanged. Mastoid air cells are clear. Orbits are normal. IMPRESSION: No acute intracranial process by CT. Dictated by: Dictated on workstation # [id number]
[2021-03-08] MEDS ORDERED: PROMETHAZINE INJ 25 MG/ML (PHENERGAN) AMP IVP ONE (18:45)
[2021-03-08 19:03] VITALS: BP 181/87
== END 2021-03-08 19:03 | disposition home or self-care (01) ==
LOC: EDUNIT# 17:07 → ER 17:10
DX: F13.239 Sedative, hypnotic or anxiolytic dependence with withdrawal, unspecified (principal); I10 Essential (primary) hypertension; E11.9 Type 2 diabetes mellitus without complications; F41.9 Anxiety disorder, unspecified; F32.9 Major depressive disorder, single episode, unspecified; Z79.84 Long term (current) use of oral hypoglycemic drugs; Z79.899 Other long term (current) drug therapy
CPT/HCPCS: 36415; 70450; 71045; 74176; 80053; 80306; 81000; 85025; 85610; 85730; 87088

== ENCOUNTER 2021-06-29 08:53 | Emergency (ER) | payer MEDICARE ==
[~2021-06-29] VITALS: Ht 167.7 cm; Wt 90.7 kg
[~2021-06-29 08:53] MED LIST changes: +FLUV100T21 PO; -FLUV100T3 PO
[2021-06-29 09:12] LABS: BASOPHILS # (AUTO) 0.1 10^3/uL (0.0-0.1); BASOPHILS % (AUTO) 1 % (0-10); EOSINOPHILS # (AUTO) 0.1 10^3/uL (0.0-0.3); EOSINOPHILS % (AUTO) 3 % (0-10); HEMATOCRIT 43 % (35-52); HEMOGLOBIN 13.8 g/dL (11.5-16.0); LYMPHOCYTES # (AUTO) 0.9 10^3/uL (1.0-4.0); LYMPHOCYTES % (AUTO) 18 % (12-44); MEAN CORPUSCULAR HEMOGLOBIN 29 pg (25-34); MEAN CORPUSCULAR HGB CONC 32 g/dL (32-36); MEAN CORPUSCULAR VOLUME 91 fL (80-99); MEAN PLATELET VOLUME 11.6 fL (9.0-12.2); MONOCYTES # (AUTO) 0.4 10^3/uL (0.0-1.0); MONOCYTES % (AUTO) 9 % (0-12); NEUTROPHILS # (AUTO) 3.5 10^3/uL (1.8-7.8); NEUTROPHILS % (AUTO) 69 % (42-75); PLATELET COUNT 192 10^3/uL (130-400)
[2021-06-29 09:22] LABS: CHLORIDE 105 MMOL/L (98-107); POTASSIUM 4.5 MMOL/L (3.6-5.0); SODIUM 139 MMOL/L (135-145)
[2021-06-29 09:23] LABS: CALCIUM 8.9 MG/DL (8.5-10.1)
[2021-06-29 09:25] LABS: GLUCOSE 290 MG/DL (70-105); TOTAL PROTEIN 6.7 GM/DL (6.4-8.2)
[2021-06-29 09:26] LABS: BILIRUBIN,TOTAL 0.5 MG/DL (0.1-1.0); CARBON DIOXIDE 23 MMOL/L (21-32)
[2021-06-29 09:28] LABS: ALKALINE PHOSPHATASE 82 U/L (40-136); CREATININE SERUM 0.75 MG/DL (0.60-1.30); GFR ESTIMATED 89
[2021-06-29 09:30] LABS: BUN/CREATININE RATIO 21
[2021-06-29 09:31] LABS: MAGNESIUM 2.2 MG/DL (1.6-2.4); SALICYLATE < 5.0 MG/DL (5.0-20.0)
[2021-06-29 09:32] LABS: ALANINE AMINOTRANSFERASE 20 U/L (0-55)
[2021-06-29 09:42] LABS: ACETAMINOPHEN < 10 UG/ML (10-30)
[2021-06-29 09:52] LABS: TSH (THYROID ANALYZER) 1.94 UIU/ML (0.35-4.94)
[2021-06-29] MEDS ORDERED: LORazepam 0.5 MG (ATIVAN) TABLET PO STA (10:55)
--- NOTE | 2021-06-29 10:58 | ED Neurological Problem ---
General Chief Complaint: Altered Mental Status Stated Complaint: UNABLE TO SLEEP Nursing Triage Note: PT TO ROOM 05 [facility]IA [facility] WITH C/O ALTERED MENTAL STATUS. PER EMS, FAMILY STATES THAT PT WAS WALKING AROUND THE HOUSE ALL NIGHT CRYING. Source: patient Exam Limitations: no limitations (KARYN ROSS APRN) History of Present Illness Date Seen by Provider: Jun 29, 2021 Time Seen by Provider: 10:56 Initial Comments To ER by EMS from home with reports that she was walking around the house crying all night. Has a history of benzodiazepine withdrawal and anxiety. She seems a bit confused this morning. She reports stress at home secondary to her daughter moving in with her. Timing/Duration: 24 hours Severity: moderate Associated Symptoms: confusion (KARYN ROSS APRN) Allergies and Home Medications Allergies Coded Allergies: gabapentin (Unverified Allergy, Unknown, 06/03/14) morphine (Unverified Allergy, Unknown, 06/03/14) Patient Home Medication List Home Medication List Reviewed: Yes (KARYN ROSS APRN) Amlodipine Besylate (Amlodipine Besylate) 5 Mg Tablet, 5 MG PO DAILY, (Reported) Entered as Reported by: BLAIR YANEZ on 08/03/18 1209 Baclofen (Baclofen) 20 Mg Tablet, 20 MG PO TID PRN for MUSCLE SPASMS, (Reported) Entered as Reported by: BLAIR YANEZ on 04/18/16921 Clonidine HCl (Clonidine HCl) 0.1 Mg Tablet, 0.1 MG PO TID PRN for ATTENTION, (Reported) Entered as Reported by: BLAIR YANEZ on 08/03/18 1157 Doxepin HCl (Doxepin HCl) 100 Mg Capsule, 200 MG PO HS, (Reported) Entered as Reported by: BLAIR YANEZ on 04/18/16921 Doxepin HCl (Doxepin HCl) 100 Mg Capsule, 100 MG PO DAILY, (Reported) Entered as Reported by: BLAIR YANEZ on 08/03/18 1157 Fluvoxamine Maleate (Fluvoxamine Maleate) 100 Mg Tablet, 200 MG PO HS, (Reported) Entered as Reported by: BLAIR YANEZ on 04/18/16921 Fluvoxamine Maleate (Fluvoxamine Maleate) 100 Mg Tablet, 100 MG PO DAILY, (Reported) Entered as Reported by: BLAIR YANEZ on 08/03/181156 Glimepiride (Glimepiride) 4 Mg Tablet, 4 MG PO BID, (Reported) Entered as Reported by: BLAIR YANEZ on 04/18/16921 Lorazepam (Lorazepam) 2 Mg Tablet, 2 MG PO 0600,1600, (Reported) Entered as Reported by: BLAIR YANEZ on 04/18/16921 Lorazepam (Lorazepam) 2 Mg Tablet, 1 MG PO 1200, (Reported) Entered as Reported by: BLAIR YANEZ on 08/03/18 115 Metformin HCl (Metformin HCl ER) 500 Mg Tab.er.24h, 500 MG PO DAILY, (Reported) Entered as Reported by: BLAIR YANEZ on 08/03/181156 Pioglitazone HCl (Pioglitazone HCl) 30 Mg Tablet, 30 MG PO DAILY, (Reported) Entered as Reported by: BLAIR YANEZ on 04/18/16921 Triamcinolone Acet (Triamcinolone Acetonide 0.1% Cream) 15 Gm Cr, TOP BID PRN for RASH/IRRITATION, (Reported) Entered as Reported by: BLAIR YANEZ on 08/03/181156 Zolpidem Tartrate (Zolpidem Tartrate) 10 Mg Tablet, 10 MG PO HS PRN for SLEEP, (Reported) Entered as Reported by: BLAIR YANEZ on 08/03/181156 Review of Systems Review of Systems Constitutional: see HPI Eyes: No Symptoms Reported Ears, Nose, Mouth, Throat: no symptoms reported Respiratory: no symptoms reported Cardiovascular: no symptoms reported Genitourinary: no symptoms reported Musculoskeletal: no symptoms reported Skin: no symptoms reported Psychiatric/Neurological: No Symptoms Reported (KARYN ROSS APRN) Past Xyfshzt-Qyemkp-Iekeva Hx Patient Social History Tobacco Use?: No Smoking Status: Never a Smoker Smokeless Tobacco Frequency: Never a User Use of E-Cig and/or Vaping dev: No Use of E-Cig and/or Vaping Andrews: Never a User Substance use?: No Alcohol Use?: No Pt feels they are or have been: No (KARYN ROSS APRN) Immunizations Up To Date Tetanus Booster (TDap): Unknown First/Initial COVID19 Vaccinat: 2020 Second COVID19 Vaccination Rey: 2020 (KARYN ROSS APRN) Seasonal Allergies Seasonal Allergies: Yes (environmental) (KARYN ROSS APRN) Past Medical History Surgeries: Yes (GASTRIC BYPASS/LEFT WRIST FX) Abdominal, Gallbladder, Orthopedic, Tonsillectomy Respiratory: No Currently Using CPAP: No Currently Using BIPAP: No Cardiac: Yes Hypertension Neurological: Yes 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 Disorders: No 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 Disorders: Denies [place] History: Menopausal HIV/AIDS: No UTI-Chronic Gastrointestinal: Yes (SIDE EFFECTS FROM GASTRIC BYPASS) Gastrointestinal Bleed, Chronic Diarrhea Musculoskeletal: Yes (lt wrist with external imobilizer hardware) Arthritis, Fibromyalgia Endocrine: Yes Diabetes, Non-Insulin dep Tinnitis Loss of Vision: Denies Hearing Impairment: Denies Cancer: No Cervical Psychosocial: Yes Sleep Difficulties, Anxiety, Depression Integumentary: Yes (chronic skin rash) Blood Disorders: Yes Adverse Reaction/Blood Tranf: No (KARYN ROSS APRN) Family Medical History No Pertinent Family Hx (KARYN ROSS APRN) Physical Exam Vital Signs Vital Signs - First Documented 06/29/21 06/29/21 09:46 12:20 Temp 37.0 Pulse 82 Resp 20 B/P (MAP) 153/86 (108) Pulse Ox 96 O2 Delivery Room Air (DRAKE HUFF MD) Vital Signs Capillary Refill : Less Than 3 Seconds (KARYN ROSS APRN) Height, Weight, BMI Height: 5'7.00" Weight: 253lbs. 0.0oz. [id number]; 32.00 BMI Method:Stated General Appearance: WD/WN, no apparent distress HEENT: PERRL/EOMI, normal ENT inspection Respiratory: no respiratory distress, no accessory muscle use Gastrointestinal: normal bowel sounds, non tender, soft Extremities: normal range of motion, non-tender Neurologic/Psychiatric: alert, oriented x 3, other (She knows she is at the hospital, she does not know the year or the month. She is listless, moaning related to right lower back pain. She denies having missed any of her recent benzodiazepine doses.) Crainal Nerves: normal speech, PERRL Skin: normal color, warm/dry (KARYN ROSS APRN) Progress/Results/Core Measures Results/Orders Lab Results Laboratory Tests Test 06/29/21 09:00 06/29/21 10:55 Range/Units White Blood Count 5.0 4.3-11.0 10^3/uL Red Blood Count 4.72 3.80-5.11 10^6/uL Hemoglobin 13.8 11.5-16.0 g/dL Hematocrit 43 35-52 % Mean Corpuscular Volume 91 80-99 fL Mean Corpuscular Hemoglobin 29 25-34 pg Mean Corpuscular Hemoglobin Concent 32 32-36 g/dL Red Cell Distribution Width 14.4 10.0-14.5 % Platelet Count 192 130-400 10^3/uL Mean Platelet Volume 11.6 9.0-12.2 fL Immature Granulocyte % (Auto) 0 % Neutrophils (%) (Auto) 69 42-75 % Lymphocytes (%) (Auto) 18 12-44 % Monocytes (%) (Auto) 9 0-12 % Eosinophils (%) (Auto) 3 0-10 % Basophils (%) (Auto) 1 0-10 % Neutrophils # (Auto) 3.5 1.8-7.8 10^3/uL Lymphocytes # (Auto) 0.9 L 1.0-4.0 10^3/uL Monocytes # (Auto) 0.4 0.0-1.0 10^3/uL Eosinophils # (Auto) 0.1 0.0-0.3 10^3/uL Basophils # (Auto) 0.1 0.0-0.1 10^3/uL Immature Granulocyte # (Auto) 0.0 0.0-0.1 10^3/uL Sodium Level 139 135-145 MMOL/L Potassium Level 4.5 3.6-5.0 MMOL/L Chloride Level 105 98-107 MMOL/L Carbon Dioxide Level 23 21-32 MMOL/L Anion Gap 11 5-14 MMOL/L Blood Urea Nitrogen 16 7-18 MG/DL Creatinine 0.75 0.60-1.30 MG/DL Estimat Glomerular Filtration Rate 89 BUN/Creatinine Ratio 21 Glucose Level 290 H 70-105 MG/DL Calcium Level 8.9 8.5-10.1 MG/DL Corrected Calcium 8.9 8.5-10.1 MG/DL Magnesium Level 2.2 1.6-2.4 MG/DL Total Bilirubin 0.5 0.1-1.0 MG/DL Aspartate Amino Transf (AST/SGOT) 21 5-34 U/L Alanine Aminotransferase (ALT/SGPT) 20 0-55 U/L Alkaline Phosphatase 82 40-136 U/L Total Protein 6.7 6.4-8.2 GM/DL Albumin 4.0 3.2-4.5 GM/DL TSH [place] Testing 1.94 0.35-4.94 UIU/ML Salicylates Level < 5.0 L 5.0-20.0 MG/DL Acetaminophen Level < 10 L 10-30 UG/ML Serum Alcohol < 10 <10 MG/DL Urine Color YELLOW Urine Clarity CLEAR Urine pH 5.5 5-9 Urine Specific [place] 1.025 H 1.016-1.022 Urine Protein NEGATIVE NEGATIVE Urine Glucose (UA) 3+ H NEGATIVE Urine Ketones NEGATIVE NEGATIVE Urine Nitrite NEGATIVE NEGATIVE Urine Bilirubin NEGATIVE NEGATIVE Urine Urobilinogen 0.2 < = 1.0 MG/DL Urine Leukocyte Esterase NEGATIVE NEGATIVE Urine RBC (Auto) NEGATIVE NEGATIVE Urine RBC RARE /HPF Urine WBC 0-2 /HPF Urine Squamous Epithelial Cells 0-2 /HPF Urine Renal Epithelial Cells NONE /HPF Urine Crystals NONE /LPF Urine Bacteria NEGATIVE /HPF Urine Casts NONE /LPF Urine Mucus NEGATIVE /LPF Urine Culture Indicated NO Urine Opiates Screen POSITIVE H NEGATIVE Urine Oxycodone Screen NEGATIVE NEGATIVE Urine Methadone Screen NEGATIVE NEGATIVE Urine Propoxyphene Screen NEGATIVE NEGATIVE Urine Barbiturates Screen NEGATIVE NEGATIVE Ur Tricyclic Antidepressants Screen POSITIVE H NEGATIVE Urine Phencyclidine Screen NEGATIVE NEGATIVE Urine Amphetamines Screen NEGATIVE NEGATIVE Urine Methamphetamines Screen NEGATIVE NEGATIVE Urine Benzodiazepines Screen POSITIVE H NEGATIVE Urine Cocaine Screen NEGATIVE NEGATIVE Urine Cannabinoids Screen NEGATIVE NEGATIVE (DRAKE HUFF MD) My Orders Orders - DRAKE HUFF MD Acetaminophen (06/29/21 08:56) Alcohol (06/29/21 08:56) Cbc With Automated Diff (06/29/21 08:56) Comprehensive Metabolic Panel (06/29/21 08:56) Drug Screen Stat (Urine) (06/29/21 08:56) Magnesium (06/29/21 08:56) Thyroid Analyzer (06/29/21 08:56) Ua Culture If Indicated (06/29/21 08:56) Ed Iv/Invasive Line Start (06/29/21 08:56) Salicylate (06/29/21 08:56) (DRAKE HUFF MD) Medications Given in ED Current Medications Medications Dose Ordered Sig/Raquel Route Start Time Stop Time Status Last Admin Dose Admin Ketorolac Tromethamine 15 mg ONCE ONCE IVP 06/29/21 11:15 06/29/21 11:16 DC 06/29/21 11:08 15 MG Lorazepam 1 mg ONCE ONCE IVP 06/29/21 11:15 06/29/21 11:16 DC 06/29/21 11:08 1 MG (DRAKE HUFF MD) Vital Signs/I&O 06/29/21 06/29/21 09:46 12:20 Temp 37.0 Pulse 82 Resp 20 69 B/P (MAP) 153/86 (108) 138/73 Pulse Ox 96 O2 Delivery Room Air Room Air (DRAKE HUFF MD) Blood Pressure Mean: 108 Departure Communication (Admissions) 1149-she now knows the year and she knows where she is at. She feels better after the Ativan and Toradol. Her work-up is unremarkable. I spoke to her daughter Natalia who states that she suspects that Michelle takes too much of her sleeping medication and then runs out and has withdrawal symptoms. This is certainly possible. She is prescribed Ambien according to Yari watts. NAME: MICHELLE VARGAS MED REC#: [id number] PT STATUS: REG ER : 1960 PHYSICIAN: KARYN ROSS APRN ADMIT DATE: 06/29/21/ER Draft Date of Exam:06/29/21 CT HEAD WO PROCEDURE: CT head without contrast. TECHNIQUE: Multiple contiguous axial images were obtained through the brain without the use of intravenous contrast. Auto Exposure Controls were utilized during the CT exam to meet ALARA standards for radiation dose reduction. INDICATION: Altered metal status. COMPARISON: Correlation is made with prior CT from 03/08/2021. FINDINGS: The ventricles and sulci appear stable. There is no sulcal effacement or midline shift. No acute intra-axial or extra-axial hemorrhage is detected. Cisterns are patent. Visualized paranasal sinuses show some mucosal thickening of the left maxillary sinus. There is also some mucosal thickening of the sphenoid sinus. IMPRESSION: No acute intracranial process is detected. Dictated on workstation # [id number] Dict: 06/29/21 1119 Trans: 06/29/21 1123 [id number] Interpreted by: GRZEGORZ VIRAMONTES MD Electronically signed by: (KARYN ROSS APRN) Impression Primary Impression: Severe anxiety with panic Disposition: HOME, SELF-CARE Condition: Stable Departure-Patient Inst. Decision time for Depature: 11:50 (KARYN ROSS APRN) Referrals: LUCIO FINLEY MD (PCP/Family) Primary Care Physician Patient Instructions: Anxiety, Adult ED Add. Discharge Instructions: All discharge instructions reviewed with patient and/or family. Voiced understanding. ATTENDING PHYSICIAN NOTE: I was physically present as attending physician in the emergency department during the care of this patient. I received report from EMS and placed initial orders. I was otherwise not directly involved in the decision making or delivery of care for this patient. (DRAKE HUFF MD) KARYN ROSS APRN Jun 29, 2021 10:58 DRAKE HUFF MD Jun 29, 2021 19:26
[2021-06-29] MEDS ORDERED: KETOROLAC 60 MG/2 ML VIAL IM ONE (11:00)
[2021-06-29 11:05] LABS: BILIRUBIN,URINE NEGATIVE (NEGATIVE); CLARITY,URINE CLEAR; COLOR,URINE YELLOW; GLUCOSE, URINE (UA) 3+ (NEGATIVE); KETONES,URINE NEGATIVE (NEGATIVE); LEUKOCYTE ESTERASE ,URINE NEGATIVE (NEGATIVE); NITRITE,URINE NEGATIVE (NEGATIVE); PH,URINE 5.5 (5-9); PROTEIN,URINE NEGATIVE (NEGATIVE)
[2021-06-29] MEDS ORDERED: KETOROLAC 30 MG/ML VIAL IVP ONE (11:15)
[2021-06-29] MEDS ORDERED: LORazepam INJ 2 MG/ML (ATIVAN) VIAL IVP ONE (11:15)
[2021-06-29 11:18] LABS: AMPHETAMINE SCREEN, URINE NEGATIVE (NEGATIVE); BARBITURATE SCREEN URINE NEGATIVE (NEGATIVE); BENZODIAZEPINES SCREEN URINE POSITIVE (NEGATIVE); CANNABINOID SCREEN, URINE NEGATIVE (NEGATIVE); COCAINE SCREEN URINE NEGATIVE (NEGATIVE); METHADONE STAT NEGATIVE (NEGATIVE); METHAMPHETAMINE SCREEN URINE S NEGATIVE (NEGATIVE); OPIATE SCREEN URINE POSITIVE (NEGATIVE); OXYCODONE STAT NEGATIVE (NEGATIVE); PROPOXYPHENE STAT NEGATIVE (NEGATIVE); TRICYCLIC ANTIDEPRESSANTS SCRE POSITIVE (NEGATIVE)
[2021-06-29 11:22] LABS: BACTERIA,URINE NEGATIVE /HPF; RBC,URINE RARE /HPF; SQUAMOUS EPITHELIAL CELL,UR 0-2 /HPF; WBC,URINE 0-2 /HPF
--- NOTE | 2021-06-29 11:23 | Diagnostic Imaging Report ---
PROCEDURE: CT head without contrast. TECHNIQUE: Multiple contiguous axial images were obtained through the brain without the use of intravenous contrast. Auto Exposure Controls were utilized during the CT exam to meet ALARA standards for radiation dose reduction. INDICATION: Altered metal status. COMPARISON: Correlation is made with prior CT from 03/08/2021. FINDINGS: The ventricles and sulci appear stable. There is no sulcal effacement or midline shift. No acute intra-axial or extra-axial hemorrhage is detected. Cisterns are patent. Visualized paranasal sinuses show some mucosal thickening of the left maxillary sinus. There is also some mucosal thickening of the sphenoid sinus. IMPRESSION: No acute intracranial process is detected. Dictated by: Dictated on workstation # [id number]
[2021-06-29 12:20] VITALS: BP 138/73
== END 2021-06-29 12:20 | disposition home or self-care (01) ==
LOC: EDUNIT# 08:53 → ER 08:55
DX: F41.9 Anxiety disorder, unspecified (principal); I10 Essential (primary) hypertension; E11.9 Type 2 diabetes mellitus without complications; F32.9 Major depressive disorder, single episode, unspecified; Z79.84 Long term (current) use of oral hypoglycemic drugs; Z79.899 Other long term (current) drug therapy
CPT/HCPCS: 70450; 80053; 80306; 81000; 83735; 84443; 85025; 99284; G0480 ×3; 36415; 80320; 80329

== ENCOUNTER 2022-09-06 18:49 | Observation (INO) | payer MEDICARE ==
[~2022-09-06] VITALS: Ht 170.2 cm; Wt 96.0 kg
[~2022-09-06 18:49] MED LIST changes: +ACET-2267 PO; +DIPH25TA65 PO; +LORA-407 PO; +METF-397 PO; +MONT-40 PO; +ZOLP10TA PO
[2022-09-06 19:13] LABS: BASOPHILS % (AUTO) 1 % (0-10); EOSINOPHILS # (AUTO) 0.2 10^3/uL (0.0-0.3); EOSINOPHILS % (AUTO) 3 % (0-10); HEMATOCRIT 37 % (35-52); HEMOGLOBIN 12.4 g/dL (11.5-16.0); LYMPHOCYTES # (AUTO) 0.9 10^3/uL (1.0-4.0); LYMPHOCYTES % (AUTO) 20 % (12-44); MEAN CORPUSCULAR HEMOGLOBIN 31 pg (25-34); MEAN CORPUSCULAR HGB CONC 34 g/dL (32-36); MEAN CORPUSCULAR VOLUME 92 fL (80-99); MEAN PLATELET VOLUME 11.6 fL (9.0-12.2); MONOCYTES # (AUTO) 0.3 10^3/uL (0.0-1.0); MONOCYTES % (AUTO) 6 % (0-12); NEUTROPHILS # (AUTO) 3.3 10^3/uL (1.8-7.8); NEUTROPHILS % (AUTO) 70 % (42-75); PLATELET COUNT 177 10^3/uL (130-400); WHITE BLOOD COUNT 4.7 10^3/uL (4.3-11.0)
--- NOTE | 2022-09-06 19:17 | ED General ---
General Chief Complaint: General Problems/Pain Stated Complaint: WEAKNESS Nursing Triage Note: PT TO [facility] BY EMS WITH C/O WEAKNESS, AND A FALL TODAY. PT NOT ANSWERING QUESTIONS UNLESS ASKED MULTIPLE TIMES. PT DENIES PAIN Source of Information: Patient, Family Exam Limitations: Physical Impairments (YULIET LIPSCOMB APRN) History of Present Illness Date Seen by Provider: Sep 06, 2022 Time Seen by Provider: 19:03 Initial Comments 62-year-old female presents the ED via EMS. Patient's daughter called EMS for an "episode." Daughter states that patient has multiple episodes like this, where she becomes confused. States that she does not always bring her to the ED for these episodes. Reports that she has had worse episodes than this. Daughter reports that patient slept all day, and then came out and complained of abdominal pain, and had difficulty making it to the bathroom in time and accidentally had a bowel movement on herself. States that she became kind of weak, and laid herself down on the floor. Denies fall. Denies injury. Patient denies any pain at this time. Denies dizziness prior to week episode. Patient is aware that she is at the hospital, and knows the month, is unsure of the year. When I asked patient why she was at the hospital, patient started talking about how her daughter is dating a mendez who is not good for her. Patient is lethargic, speech is slowed, but she begins to answer questions quickly when as ked. She is alert to voice. (YULIET LIPSCOMB APRN) Allergies and Home Medications Allergies Coded Allergies: gabapentin (Unverified Allergy, Unknown, 06/03/14) morphine (Unverified Allergy, Unknown, 06/03/14) Patient Home Medication List Home Medication List Reviewed: Yes (YULIET LIPSCOMB APRN) Acetaminophen (Tylenol Extra Strength) 500 Mg Tablet, 1,000 MG PO Q8H PRN for PAIN-MILD (1-4), (Reported) Entered as Reported by: TIMBO TORIBIO on 09/13/21 0916 Last Action: Reviewed Amlodipine Besylate (Amlodipine Besylate) 5 Mg Tablet, 5 MG PO DAILY, (Reported) Entered as Reported by: BLAIR YANEZ on 08/03/18 1209 Last Action: Reviewed Azithromycin (Azithromycin) 250 Mg Tablet, 250 MG PO HS Prescribed by: LEANN CALLE on 09/07/22 1203 Baclofen (Baclofen) 20 Mg Tablet, 20 MG PO TID, (Reported) Entered as Reported by: BLAIR YANEZ on 04/18/16921 Last Action: Reviewed Diphenhydramine HCl (Benadryl Allergy) 25 Mg Tablet, 25-50 MG PO Q6H PRN for ALLERGY SYMPTOMS, (Reported) Entered as Reported by: TIMBO TORIBIO on 09/13/21915 Last Action: Reviewed Doxepin HCl (Doxepin HCl) 100 Mg Capsule, 100 MG PO TID, (Reported) Entered as Reported by: TIMBO TORIBIO on 09/13/21915 Last Action: Reviewed Glimepiride (Glimepiride) 4 Mg Tablet, 4 MG PO BID, (Reported) Entered as Reported by: BLAIR YANEZ on 04/18/16921 Last Action: Reviewed Lorazepam (Ativan) 2 Mg Tablet, 2 MG PO BID, (Reported) Entered as Reported by: TIMBO TORIBIO on 09/13/21915 Last Action: Last Taken Edited Lorazepam (Ativan) 2 Mg Tablet, 1 MG PO 1200, (Reported) Entered as Reported by: TIMBO TORIBIO on 09/13/21915 Last Action: Last Taken Edited Meloxicam (Meloxicam) 15 Mg Tablet, 15 MG PO DAILY, (Reported) Entered as Reported by: TIMBO TORIBIO on 09/13/21915 Last Action: Reviewed Metformin HCl (Metformin HCl) 500 Mg Tablet, 500 MG PO BID, (Reported) Entered as Reported by: TIMBO TORIBIO on 09/13/21915 Last Action: Reviewed Montelukast Sodium (Montelukast Sodium) 10 Mg Tablet, 10 MG PO HS, (Reported) Entered as Reported by: TIMBO TORIBIO on 09/13/21915 Last Action: Reviewed Pioglitazone HCl (Pioglitazone HCl) 30 Mg Tablet, 30 MG PO DAILY, (Reported) Entered as Reported by: BLAIR YANEZ on 04/18/16921 Last Action: Reviewed Triamcinolone Acet (Triamcinolone Acetonide 0.1% Cream) 15 Gm Cr, TOP BID PRN for RASH/IRRITATION, (Reported) Entered as Reported by: BLAIR YANEZ on 08/03/18 1157 Last Action: Reviewed Zolpidem Tartrate (Ambien) 10 Mg Tablet, 10 MG PO HS PRN for SLEEP, (Reported) Entered as Reported by: TIMBO TORIBIO on 09/13/21 0916 Last Action: Reviewed Review of Systems Review of Systems Constitutional: weakness Respiratory: no symptoms reported Cardiovascular: no symptoms reported Gastrointestinal: abdominal pain (Reported by daughter, patient denies) (YULIET LIPSCOMB APRN) Past Owczuzz-Vplaew-Anhlyz Hx Patient Social History Tobacco Use?: No Use of E-Cig and/or Vaping dev: No Substance use?: No Alcohol Use?: No Pt feels they are or have been: No (YULIET LIPSCOMB APRN) Immunizations Up To Date Tetanus Booster (TDap): Unknown Influenza Vaccine Up-to-Date: No; Not Current First/Initial COVID19 Vaccinat: 2020 Second COVID19 Vaccination Rey: 2020 Third COVID19 Vaccination Date: 2021 (YULIET LIPSCOMB APRN) Seasonal Allergies Seasonal Allergies: Yes (environmental) (YULIET LIPSCOMB APRN) Past Medical History Surgery/Hospitalization HX: DM, UNABLE TO OBTAIN FROM PT Surgeries: Yes (GASTRIC BYPASS/LEFT WRIST FX) Abdominal, Gallbladder, Orthopedic, Tonsillectomy Respiratory: No Currently Using CPAP: No Currently Using BIPAP: No Cardiac: Yes Hypertension Neurological: Yes 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 Disorders: No 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 HIV/AIDS: No UTI-Chronic Gastrointestinal: Yes (SIDE EFFECTS FROM GASTRIC BYPASS) Gastrointestinal Bleed, Chronic Diarrhea Musculoskeletal: Yes (lt wrist with external imobilizer hardware) Arthritis, Fibromyalgia Endocrine: Yes Diabetes, Non-Insulin dep Tinnitis Loss of Vision: Denies Hearing Impairment: Denies Cancer: No Cervical Psychosocial: Yes Sleep Difficulties, Anxiety, Depression Integumentary: Yes (chronic skin rash) Blood Disorders: Yes Adverse Reaction/Blood Tranf: No (YULIET LIPSCOMB APRN) Family Medical History No Pertinent Family Hx SOCIAL HISTORY: -SMOKING-DENIES USE -ETOH--HISTORY OF ABUSE, DENIES RECENT USE -DRUGS--EXTENSIVE HISTORY OF DRUG ABUSE, INCLUDING METHAMPHETAMINES, AND PRESCRIPTION DRUGS ESPECIALLY OPIATES AND BENZODIAZEPINES. HAS HISTORY OF BENZODIAZEPINE WITHDRAWL. PAST SURGICAL HISTORY: -GASTRIC BYPASS -LEFT WRIST/FOREARM FX WITH EXTERNAL FIXATION -CHOLECYSTECTOMY -BILATERAL TUBAL LIGATION. (YULIET LIPSCOMB APRN) Physical Exam-Suspected Sepsis Physical Exam Vital Signs Vital Signs - First Documented 09/06/22 09/06/22 09/06/22 09/06/22 18:55 19:17 21:27 21:45 Temp 37.1 Pulse 113 Resp 20 B/P (MAP) 109/72 (84) Pulse Ox 97 O2 Delivery Room Air O2 Flow Rate 2.00 (DRAKE HUFF MD) Vital Signs Capillary Refill : (YULIET LIPSCOMB APRN) Blood Pressure Mean: 84 Height, Weight, BMI Height: 5'7.00" Weight: 253lbs. 0.0oz. 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 Norm as Tested, Disoriented Skin: normal color, warm/dry (YULIET LIPSCOMB APRN) Focused Exam Lactate Level 09/06/22 18:55: Lactic Acid Level 2.53*H 09/06/22 20:50: Lactic Acid Level 0.82 (DRAKE HUFF MD) Progress/Results/Core Measures Suspected Sepsis SIRS Temperature: Pulse: 113 Respiratory Rate: 20 Laboratory Tests 09/06/22 18:55: White Blood Count 4.7 09/07/22 05:36: White Blood Count 4.3 Blood Pressure 109 /72 Mean: 84 09/06/22 18:55: Lactic Acid Level 2.53*H 09/06/22 20:50: Lactic Acid Level 0.82 Laboratory Tests 09/06/22 18:55: Creatinine 1.10, INR Comment 0.9, Platelet Count 177, Total Bilirubin 0.4 09/07/22 05:36: Creatinine 0.76, Platelet Count 179, Total Bilirubin 0.3 (YULIET LIPSCOMB APRN) Results/Orders Lab Results Laboratory Tests Test 09/06/22 18:55 09/06/22 19:14 09/06/22 19:15 09/06/22 20:50 Range/Units White Blood Count 4.7 4.3-11.0 10^3/uL Red Blood Count 3.99 3.80-5.11 10^6/uL Hemoglobin 12.4 11.5-16.0 g/dL Hematocrit 37 35-52 % Mean Corpuscular Volume 92 80-99 fL Mean Corpuscular Hemoglobin 31 25-34 pg Mean Corpuscular Hemoglobin Concent 34 32-36 g/dL Red Cell Distribution Width 12.2 10.0-14.5 % Platelet Count 177 130-400 10^3/uL Mean Platelet Volume 11.6 9.0-12.2 fL Immature Granulocyte % (Auto) 0 % Neutrophils (%) (Auto) 70 42-75 % Lymphocytes (%) (Auto) 20 12-44 % Monocytes (%) (Auto) 6 0-12 % Eosinophils (%) (Auto) 3 0-10 % Basophils (%) (Auto) 1 0-10 % Neutrophils # (Auto) 3.3 1.8-7.8 10^3/uL Lymphocytes # (Auto) 0.9 L 1.0-4.0 10^3/uL Monocytes # (Auto) 0.3 0.0-1.0 10^3/uL Eosinophils # (Auto) 0.2 0.0-0.3 10^3/uL Basophils # (Auto) 0.0 0.0-0.1 10^3/uL Immature Granulocyte # (Auto) 0.0 0.0-0.1 10^3/uL Prothrombin Time 13.0 12.2-14.7 SEC INR Comment 0.9 0.8-1.4 Activated Partial Thromboplast Time 25 24-35 SEC Sodium Level 134 L 135-145 MMOL/L Potassium Level 4.5 3.6-5.0 MMOL/L Chloride Level 102 98-107 MMOL/L Carbon Dioxide Level 20 L 21-32 MMOL/L Anion Gap 12 5-14 MMOL/L Blood Urea Nitrogen 19 H 7-18 MG/DL Creatinine 1.10 0.60-1.30 MG/DL Estimat Glomerular Filtration Rate 56 BUN/Creatinine Ratio 17 Glucose Level 355 H 70-105 MG/DL Lactic Acid Level 2.53 *H 0.82 0.50-2.00 MMOL/L Calcium Level 8.4 L 8.5-10.1 MG/DL Corrected Calcium 8.6 8.5-10.1 MG/DL Total Bilirubin 0.4 0.1-1.0 MG/DL Aspartate Amino Transf (AST/SGOT) 17 5-34 U/L Alanine Aminotransferase (ALT/SGPT) 21 0-55 U/L Alkaline Phosphatase 101 40-136 U/L Total Protein 5.3 L 6.4-8.2 GM/DL Albumin 3.7 3.2-4.5 GM/DL Amylase Level 27 25-125 U/L Lipase 8 8-78 U/L Beta-Hydroxybutyrate (Chem panel) 0.10 0.00-0.27 MMOL/L Urine Color YELLOW Urine Clarity CLEAR Urine pH 5.5 5-9 Urine Specific [place] 1.025 H 1.016-1.022 Urine Protein NEGATIVE NEGATIVE Urine Glucose (UA) 3+ H NEGATIVE Urine Ketones NEGATIVE NEGATIVE Urine Nitrite NEGATIVE NEGATIVE Urine Bilirubin NEGATIVE NEGATIVE Urine Urobilinogen 0.2 < = 1.0 MG/DL Urine Leukocyte Esterase 1+ H NEGATIVE Urine RBC (Auto) NEGATIVE NEGATIVE Urine RBC 0-2 /HPF Urine WBC 5-10 H /HPF Urine Squamous Epithelial Cells 10-25 H /HPF Urine Crystals PRESENT H /LPF Urine Amorphous Sediment FEW MANJINDER URATES H /LPF Urine Bacteria MODERATE H /HPF Urine Casts PRESENT /LPF Urine Hyaline Casts 2-5 H /LPF Urine Mucus MODERATE H /LPF Urine Culture Indicated CULTURE PENDING Urine Opiates Screen NEGATIVE NEGATIVE Urine Oxycodone Screen NEGATIVE NEGATIVE Urine Methadone Screen NEGATIVE NEGATIVE Urine Propoxyphene Screen NEGATIVE NEGATIVE Urine Barbiturates Screen NEGATIVE NEGATIVE Ur Tricyclic Antidepressants Screen POSITIVE H NEGATIVE Urine Phencyclidine Screen NEGATIVE NEGATIVE Urine Amphetamines Screen NEGATIVE NEGATIVE Urine Methamphetamines Screen NEGATIVE NEGATIVE Urine Benzodiazepines Screen NEGATIVE NEGATIVE Urine Cocaine Screen NEGATIVE NEGATIVE Urine Cannabinoids Screen NEGATIVE NEGATIVE Influenza Type A (RT-PCR) Not Detected Not Detecte Influenza Type B (RT-PCR) Not Detected Not Detecte SARS-CoV-2 RNA (RT-PCR) Not Detected Not Detecte Test 09/06/22 20:59 09/07/22 05:35 09/07/22 05:36 09/07/22 11:11 Range/Units Blood Gas Puncture Site L RAD Blood Gas Patient Temperature 37.6 Arterial Blood pH 7.37 7.37-7.43 Arterial Blood Partial Pressure CO2 38 35-45 MMHG Arterial Blood Partial Pressure O2 150 H 79-93 MMHG Arterial Blood HCO3 21 L 23-27 MMOL/L Arterial Blood Total CO2 22.4 21.0-31.0 MMOL/L Arterial Blood Oxygen Saturation 98 94-100 % Arterial Blood Base Excess -3.1 L -2.5-2.5 MMOL/L Luis A Test YES-POS Blood Gas Ventilator Setting NO Blood Gas Inspired Oxygen 2L Glucometer 148 H 198 H 70-110 MG/DL White Blood Count 4.3 4.3-11.0 10^3/uL Red Blood Count 3.94 3.80-5.11 10^6/uL Hemoglobin 12.1 11.5-16.0 g/dL Hematocrit 37 35-52 % Mean Corpuscular Volume 94 80-99 fL Mean Corpuscular Hemoglobin 31 25-34 pg Mean Corpuscular Hemoglobin Concent 33 32-36 g/dL Red Cell Distribution Width 12.2 10.0-14.5 % Platelet Count 179 130-400 10^3/uL Mean Platelet Volume 11.8 9.0-12.2 fL Immature Granulocyte % (Auto) 0 % Neutrophils (%) (Auto) 66 42-75 % Lymphocytes (%) (Auto) 22 12-44 % Monocytes (%) (Auto) 9 0-12 % Eosinophils (%) (Auto) 3 0-10 % Basophils (%) (Auto) 1 0-10 % Neutrophils # (Auto) 2.8 1.8-7.8 10^3/uL Lymphocytes # (Auto) 0.9 L 1.0-4.0 10^3/uL Monocytes # (Auto) 0.4 0.0-1.0 10^3/uL Eosinophils # (Auto) 0.1 0.0-0.3 10^3/uL Basophils # (Auto) 0.0 0.0-0.1 10^3/uL Immature Granulocyte # (Auto) 0.0 0.0-0.1 10^3/uL Sodium Level 141 135-145 MMOL/L Potassium Level 4.3 3.6-5.0 MMOL/L Chloride Level 111 H 98-107 MMOL/L Carbon Dioxide Level 22 21-32 MMOL/L Anion Gap 8 5-14 MMOL/L Blood Urea Nitrogen 14 7-18 MG/DL Creatinine 0.76 0.60-1.30 MG/DL Estimat Glomerular Filtration Rate 87 BUN/Creatinine Ratio 18 Glucose Level 178 H 70-105 MG/DL Calcium Level 8.2 L 8.5-10.1 MG/DL Corrected Calcium 8.5 8.5-10.1 MG/DL Total Bilirubin 0.3 0.1-1.0 MG/DL Aspartate Amino Transf (AST/SGOT) 15 5-34 U/L Alanine Aminotransferase (ALT/SGPT) 19 0-55 U/L Alkaline Phosphatase 95 40-136 U/L Total Protein 5.8 L 6.4-8.2 GM/DL Albumin 3.6 3.2-4.5 GM/DL (DRAKE HUFF MD) Micro Results Microbiology 09/06/22 Blood Culture - Preliminary, Resulted No growth 09/06/22 Urine Culture - Final, Complete NO GROWTH 09/06/22 Blood Culture - Preliminary, Resulted No growth (DRAKE HUFF MD) My Orders Orders - DRAKE HUFF MD Arterial Blood Draw - Obtain (09/06/22 ) (DRAKE HUFF MD) Vital Signs/I&O Capillary Refill : (YULIET LIPSCOMB APRN) Blood Pressure Mean: 84 Progress Note : Time: 19:17 Progress Note Patient seen and evaluated, resting comfortably in bed, no acute distress, lethargic, opens eyes to voice, speech is slow, but begins to reply to questions quickly. Based on symptoms and exam, septic work-up initiated including CBC, CMP, coags, lactic acid, Accu-Chek, blood cultures x2, chest x-ray, UA, sputum culture, amylase, lipase, EKG. 2 L of IV fluids ordered, 1 L already infusing from EMS. 2017 Labs and x-ray reviewed. CBC shows normal WBC 4.7. CMP shows slightly decreased sodium 134, slightly decreased CO2 28, slightly elevated BUN 19, elevated glucose 355, decreased calcium 8.4, decreased total protein 5.3. Critical lactic acid 2.53. Coags normal. UA shows 3+ glucose, 1+ leukocytes, 5-10 WBC, 10-25 squamous epithelial cells, moderate bacteria. Rocephin ordered for urinary tract infection. COVID and flu negative. Chest x-ray shows small left pleural effusion with left basilar atelectasis or consolidation. This is likely pneumonia due to low oxygenation saturation, patient's O2 has been between 89 to 93% on room air. Azithromycin ordered. Dr. Calle, hospitalist, called for admission. (YULIET LIPSCOMB APRN) ECG Initial ECG Impression Date: Sep 06, 2022 Initial ECG Impression Time: 19:20 Initial ECG Rate: 103 Initial ECG Rhythm: S.Tach Initial ECG Intervals: QRS Initial ECG Intervals QRS slightly widened lead I and aVL Initial ECG Impression: Nonspecific Changes Initial ECG Comparisson: Changed Comment Slightly widened QRS lead I and aVL (YULIET LIPSCOMB APRN) Diagnostic Imaging Diagonstic Imaging: Xray Plain Films/CT/US/NM/MRI: chest Comments [facility], [place] NAME: GERONIMO VARGAS [facility] REC#: [id number] PT STATUS: REG ER : 1960 PHYSICIAN: YULIET LIPSCOMB APRN ADMIT DATE: 09/06/22/ER Signed Date of Exam:09/06/22 CHEST 1 VIEW, AP/PA ONLY EXAMINATION: Chest 1 view. HISTORY: Low O2, decreased breath sounds. COMPARISON: 09/12/2021. FINDINGS: Heart size and pulmonary vasculature are normal. There are mild opacities within the left lung base. The left costophrenic angle is blunted. No pneumothorax. Chronic left rib deformities. IMPRESSION: Likely small left pleural effusion with left basilar atelectasis or consolidation. Dictated by: Dictated on workstation # [id number] Dict: 09/06/221953 Trans: 09/06/222000 PJE [id number] Interpreted by: JOCELINE ANGELES DO Electronically signed by: JOCELINE ANGELES DO 09/06/222000 (YULIET LIPSCOMB APRN) Departure Communication (Admissions) Time/Spoke to Admitting Phy: 20:17 Dr. Calle, hospitalist, called for admission. She agrees to admit [facility]. She will place acute orders (YULIET LIPSCOMB APRN) Impression Primary Impression: Pneumonia Additional Impressions: UTI (urinary tract infection) Elevated lactic acid level Disposition: ADMITTED INPATIENT Condition: Stable Admissions Decision to Admit Reason: Admit from ER (General) Decision to Admit/Date: Sep 06, 2022 Time/Decision to Admit Time: 20:17 (YULIET LIPSCOMB APRN) Departure-Patient Inst. Referrals: LUCIO FINLEY MD (PCP/Family) Primary Care Physician Scripts Azithromycin (Azithromycin) 250 Mg Tablet 250 MG PO HS, #4 TAB Prov: LEANN CALLE DO 09/07/22 ATTENDING PHYSICIAN NOTE: I was physically present as attending physician in the emergency department during the care of this patient, but I was not directly involved in the decision making or delivery of care for this patient. (DRAKE HUFF MD) YULIET LIPSCOMB APRN Sep 06, 2022 19:17 DRAKE HUFF MD Sep 08, 2022 15:41
[2022-09-06 19:22] LABS: INR 0.9 (0.8-1.4)
[2022-09-06] MEDS: NS IV 1000 ML 1,000 ML IV SCH ×3 (19:23→22:26)
[2022-09-06 19:25] LABS: BILIRUBIN,URINE NEGATIVE (NEGATIVE); CLARITY,URINE CLEAR; COLOR,URINE YELLOW; GLUCOSE, URINE (UA) 3+ (NEGATIVE); KETONES,URINE NEGATIVE (NEGATIVE); LEUKOCYTE ESTERASE ,URINE 1+ (NEGATIVE); NITRITE,URINE NEGATIVE (NEGATIVE); PH,URINE 5.5 (5-9); PROTEIN,URINE NEGATIVE (NEGATIVE)
[2022-09-06 19:36] LABS: AMORPHOUS SEDIMENT,UR FEW AMOR URATES /LPF; BACTERIA,URINE MODERATE /HPF
[2022-09-06 19:37] LABS: ALBUMIN 3.7 GM/DL (3.2-4.5); AMYLASE 27 U/L (25-125); BILIRUBIN,TOTAL 0.4 MG/DL (0.1-1.0); CALCIUM 8.4 MG/DL (8.5-10.1); CREATININE SERUM 1.1 MG/DL (0.60-1.30); LIPASE 8 U/L (8-78); POTASSIUM 4.5 MMOL/L (3.6-5.0); TOTAL PROTEIN 5.3 GM/DL (6.4-8.2)
[2022-09-06 19:39] LABS: RBC,URINE 0-2 /HPF
[2022-09-06 19:40] LABS: AMPHETAMINE SCREEN, URINE NEGATIVE (NEGATIVE); BARBITURATE SCREEN URINE NEGATIVE (NEGATIVE); BENZODIAZEPINES SCREEN URINE NEGATIVE (NEGATIVE); CANNABINOID SCREEN, URINE NEGATIVE (NEGATIVE); COCAINE SCREEN URINE NEGATIVE (NEGATIVE); OPIATE SCREEN URINE NEGATIVE (NEGATIVE); TRICYCLIC ANTIDEPRESSANTS SCRE POSITIVE (NEGATIVE)
[2022-09-06 19:41] LABS: METHADONE STAT NEGATIVE (NEGATIVE); OXYCODONE STAT NEGATIVE (NEGATIVE); PROPOXYPHENE STAT NEGATIVE (NEGATIVE)
--- NOTE | 2022-09-06 19:59 | Diagnostic Imaging Report ---
EXAMINATION: Chest 1 view. HISTORY: Low O2, decreased breath sounds. COMPARISON: 09/12/2021. FINDINGS: Heart size and pulmonary vasculature are normal. There are mild opacities within the left lung base. The left costophrenic angle is blunted. No pneumothorax. Chronic left rib deformities. IMPRESSION: Likely small left pleural effusion with left basilar atelectasis or consolidation. Dictated by: Dictated on workstation # [id number]
--- NOTE | 2022-09-06 20:09 | Diagnostic Imaging Report ---
EXAMINATION: CT head without contrast. TECHNIQUE: Multiple contiguous axial images were obtained through the brain without the use of intravenous contrast. All CT scans use one or more of the following dose optimizing techniques: automated exposure control, MA and/or KvP adjustment based on patient size and exam type or iterative reconstruction. HISTORY: Altered mental status. COMPARISON: 09/12/2021. FINDINGS: The ventricles and sulci are normal. No abnormal attenuation of brain parenchyma is present. No acute intracranial hemorrhage or abnormal extra-axial fluid collection is present. Calcification of the intracranial ICAs. No hyperdense vessel. The calvarium is intact. The mastoid air cells are clear. There is mucosal thickening of the paranasal sinuses. The orbits are normal. IMPRESSION: No acute intracranial abnormality. Dictated by: Dictated on workstation # [id number]
[2022-09-06] MEDS ORDERED: cefTRIAXone 1 GM PRE-MIX 50 ML IV ONE (20:15)
[2022-09-06] MEDS ORDERED: AZITHROMYCIN INJECTION 500 MG in NS (IVPB) 250 ML IV ONE (20:30)
[2022-09-06 21:04] LABS: ABG BASE EXCESS -3.1 MMOL/L (-2.5-2.5); ABG OXYGEN SATURATION 98 % (94-100); ABG PCO2 38 MMHG (35-45); ABG PH 7.37 (7.37-7.43); ABG PO2 150 MMHG (79-93); ABG TCO2 22.4 MMOL/L (21.0-31.0)
[2022-09-06 21:06] LABS: ALLENS TEST YES-POS; INSPIRED O2 2L; PATIENT TEMP 37.6; VENTILATOR NO
[2022-09-06] MEDS ORDERED: ZIPRASIDONE 20 MG INJ (GEODON) VIAL IM PRN (21:45)
[2022-09-06] MEDS ORDERED: MILK OF MAGNESIA 400 MG/5 ML 30 ML UDC PO PRN (21:45)
[2022-09-06] MEDS ORDERED: HYDROmorphone 2 MG/ML VIAL (DILAUDID) IV PRN (21:45)
[2022-09-06] MEDS ORDERED: BISACODYL 10 MG SUPP (DULCOLAX) PR PRN (21:45)
[2022-09-06] MEDS ORDERED: diphenhydrAMINE 50 MG/ML INJ (BENADRYL) IVP PRN (21:45)
[2022-09-06] MEDS ORDERED: cloNIDine 0.1 MG (CATAPRES) TAB PO PRN (21:45)
[2022-09-06] MEDS ORDERED: ANTACID SUSP 30 ML UDC (MYLANTA) PO PRN (21:45)
[2022-09-06] MEDS ORDERED: ENOXAPARIN 40 MG/0.4 ML (LOVENOX) SYR SC SCH (21:45)
[2022-09-06] MEDS ORDERED: MELATONIN 3 MG TABLET PO PRN (21:45)
[2022-09-06] MEDS ORDERED: WATER (STERILE) FOR INJ 10 ML BTL INJ SCH (21:45)
[2022-09-06] MEDS ORDERED: CALCIUM CARBONATE 500 MG (TUMS) TAB.CHEW PO PRN (21:45)
[2022-09-06] MEDS ORDERED: ONDANSETRON 4 MG (ZOFRAN) ORAL DISSOLVE TAB PO PRN (21:45)
[2022-09-06] MEDS ORDERED: LACTULOSE SYRUP 10GM/15ML (ENULOSE) 30ML UDC PO PRN (21:45)
[2022-09-06] MEDS ORDERED: LORazepam INJ 2 MG/ML (ATIVAN) VIAL IVP PRN (21:45)
[2022-09-06] MEDS ORDERED: polyethylene glycoL POWDER 17 GM (MIRALAX) PACK PO PRN (21:45)
[2022-09-06] MEDS ORDERED: LORazepam 0.5 MG (ATIVAN) TABLET PO PRN (21:45)
[2022-09-06] MEDS ORDERED: diphenhydrAMINE 25 MG TAB (BENADRYL) PO PRN (21:45)
[2022-09-06] MEDS ORDERED: ONDANSETRON 4 MG/2 ML (SDV) Z0FRAN IV PRN (21:45)
[2022-09-06 22:01] VITALS: BP 121/69
[2022-09-06] MEDS: ACETAMINOPHEN 325 MG TABLET PO PRN (22:25)
[2022-09-06] MEDS ORDERED: ZOLPIDEM 5 MG (AMBIEN) TAB PO PRN (22:30)
[2022-09-06 22:55] VITALS: BP 109/72
[2022-09-06] MEDS ORDERED: RT-ALBUTEROL SULF 2.5 MG/3 ML PRE-MIX VIAL INH PRN (23:30)
[2022-09-06 23:47] VITALS: BP 124/70
[2022-09-07] MEDS ORDERED: RT-ALBUTEROL SULF 2.5 MG/3 ML PRE-MIX VIAL INH SCH ×2 (03:00→09:00)
[2022-09-07 03:54] VITALS: BP 118/74
--- NOTE | 2022-09-07 05:33 | History & Physical-Hospitalist ---
History of Present Illness Date Seen 09/07/22 Time Seen by a Provider: 11:00 Attending Physician Jose Santos MD PCP Admitting Physician: Cassandra Barney DO Attending Physician: Cassandra Barney DO Referring Physician Date of Admission Sep 06, 2022 at 21:35 Home Medications & Allergies Home Medications Reviewed patient Home Medication Reconciliation performed by pharmacy medication reconciliations explosive ordnance disposal technician and/or nursing. Patients Allergies have been reviewed. Allergies Allergies Coded Allergies gabapentin (Unverified Allergy, Unknown, 06/03/14) morphine (Unverified Allergy, Unknown, 06/03/14) Past Ogcibhu-Edehvh-Eynclf Hx Patient Social History Tobacco Use?: No Smoking Status: Never a Smoker Smokeless Tobacco Frequency: Never a User Use of E-Cig and/or Vaping dev: Yes Use of E-Cig and/or Vaping [place]: Never a User Substance use?: No Alcohol Use?: No Pt feels they are or have been: No Immunizations Up To Date Date of Influenza Vaccine: Apr 16, 2014 First/Initial COVID19 Vaccinat: 2020 Second COVID19 Vaccination Rey: 2020 Tetanus Booster (TDap): More Than 5 Years Hepatitis A: No Hepatitis B: No Date of Pneumonia Vaccine: Apr 18, 2014 Seasonal Allergies Seasonal Allergies: Yes (environmental) Current Status status: No status: No Advance Directives: No Communicates: Verbally Primary Language: Vincentian Preferred Spoken Language: Malagasy Implanted or Applied Medical D: None Past Medical History Surgeries: Abdominal, Gallbladder, Orthopedic, Tonsillectomy Currently Using CPAP: No Currently Using BIPAP: No 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 HAS HISTORY OF BENZODIAZEPINE WITHDRAWL. PAST SURGICAL HISTORY: -GASTRIC BYPASS -LEFT WRIST/FOREARM FX WITH EXTERNAL FIXATION -CHOLECYSTECTOMY -BILATERAL TUBAL LIGATION. Physical Exam Physical Exam Vital Signs Vital Signs - First Documented 3/24/23 09/06/22 09/06/22 09/06/22 18:55 19:17 21:27 21:45 Temp 37.1 Pulse 113 Resp 20 B/P (MAP) 109/72 (84) Pulse Ox 97 O2 Delivery Room Air O2 Flow Rate 2.00 Capillary Refill : Height, Weight, BMI Height: 5'7.00" Weight: 253lbs. 0.0oz. 114.015259wg; 33.13 BMI Method:Stated Results Results/Procedures Labs Laboratory Tests 09/06/22 18:55 09/07/22 05:36 Patient resulted labs reviewed. CASSANDRA BARNEY DO Sep 07, 2022 05:33
[2022-09-07] MEDS: inSUlin ASPART (NovoLOG) 1 UNIT/0.01 ML (CHARGE PER UNIT) SC SCH ×2 (05:37→11:37)
[2022-09-07 05:59] LABS: BASOPHILS % (AUTO) 1 % (0-10); EOSINOPHILS # (AUTO) 0.1 10^3/uL (0.0-0.3); EOSINOPHILS % (AUTO) 3 % (0-10); HEMATOCRIT 37 % (35-52); HEMOGLOBIN 12.1 g/dL (11.5-16.0); LYMPHOCYTES # (AUTO) 0.9 10^3/uL (1.0-4.0); LYMPHOCYTES % (AUTO) 22 % (12-44); MEAN CORPUSCULAR HEMOGLOBIN 31 pg (25-34); MEAN CORPUSCULAR HGB CONC 33 g/dL (32-36); MEAN CORPUSCULAR VOLUME 94 fL (80-99); MEAN PLATELET VOLUME 11.8 fL (9.0-12.2); MONOCYTES # (AUTO) 0.4 10^3/uL (0.0-1.0); MONOCYTES % (AUTO) 9 % (0-12); NEUTROPHILS # (AUTO) 2.8 10^3/uL (1.8-7.8); NEUTROPHILS % (AUTO) 66 % (42-75); PLATELET COUNT 179 10^3/uL (130-400); WHITE BLOOD COUNT 4.3 10^3/uL (4.3-11.0)
[2022-09-07 06:08] LABS: ALBUMIN 3.6 GM/DL (3.2-4.5); POTASSIUM 4.3 MMOL/L (3.6-5.0)
[2022-09-07 06:09] LABS: CALCIUM 8.2 MG/DL (8.5-10.1)
[2022-09-07 06:10] LABS: TOTAL PROTEIN 5.8 GM/DL (6.4-8.2)
[2022-09-07 06:12] LABS: BILIRUBIN,TOTAL 0.3 MG/DL (0.1-1.0)
[2022-09-07 06:14] LABS: CREATININE SERUM 0.76 MG/DL (0.60-1.30)
--- NOTE | 2022-09-07 07:31 | Diagnostic Imaging Report ---
INDICATION: Follow-up pneumonia. Time of Exam: 5:15 AM Correlation is made with prior chest one day earlier. Findings: The heart size is normal. The pulmonary vascularity is unremarkable. The lungs are clear. No infiltrate, effusion or pneumothorax is detected. Impression: No acute cardiopulmonary process is detected. Dictated by: Dictated on workstation # [id number]
[2022-09-07] MEDS: ACETAMINOPHEN 325 MG TABLET PO PRN (07:44)
[2022-09-07 07:49] VITALS: BP 131/65
[2022-09-07] MEDS ORDERED: SENNOSIDES 8.6 MG (SENOKOT) TAB PO SCH (09:00)
[2022-09-07] MEDS ORDERED: DOCUSATE SODIUM 100 MG (COLACE) CAP PO SCH (09:00)
[2022-09-07] MEDS: NS IV 1000 ML 1,000 ML IV SCH (09:17)
--- NOTE | 2022-09-07 11:41 | Physical Therapy Evaluation ---
PT Evaluation-General Medical Diagnosis Admission Date Sep 06, 2022 at 21:35 Medical Diagnosis: Pneumonia, sepsis, fall Onset Date: Sep 06, 2022 Therapy Diagnosis Therapy Diagnosis: Gait deficit, strength deficit Height/Weight Height (Feet): 5 Height (Inches): 7.00 Weight (Pounds): 253 Weight (Ounces): 0.0 Precautions Precautions/Isolations: Fall Prevention, Standard Precautions Weight Bear Status Right Lower Extremity: Right Weight Bearing/Tolerated Left Lower Extremity: Left Weight Bearing/Tolerated Referral Physician: Dr. Barney Reason for Referral: Evaluation/Treatment Medical History Pertinent Medical History: Arthritis, DM, HTN Reviewed History: Yes Social History Home: Apartment Current Living Status: Alone Entry Into Home: Elevator Prior Prior Level of Function SCALE: Activities may be completed with or without assistive devices. 0-Jniukepmem-ycdwdfb completes the activity by him/herself with no assistance from a helper. 5-Set-up or Clean-up Assistance-helper sets up or cleans up; patient completes activity. [place] assists only prior to or following the activity. 4-Supervision or Touching Assistance-helper provides verbal cues and/or touching/steadying and/or contact guard assistance as patient completes activi ty. Assistance may be provided throughout the activity or intermittently. 3-Partial/Moderate Assistance-helper does LESS THAN HALF the effort. [place] lifts, holds or supports trunk or limbs, but provides less than half the effort. 2-Substantial/Maximal Assistance-helper does MORE THAN HALF the effort. [place] lifts or holds trunk or limbs and provides more than half the effort. 1-Kwdhwxsvf-cbviyh does ALL the effort. Patient does none of the effort to complete the activity. Or, the assistance of 2 or more helpers is required for the patient to complete the activity. If activity was not attempted, code reason: 7-Patient Refused. 9-Not Applicable-not attempted and the patient did not perform the activity before the current illness, exacerbation or injury. 10-Not Attempted due to Environmental Limitations-(lack of equipment, weather restraints, etc.). 88-Not Attempted due to Medical Conditions or Safety Concerns. Bed Mobility: 6 Transfers (B,C,W/C): 6 Gait: 6 Stairs: 6 Indoor Mobility (Ambulation): Independent Stairs: Independent Prior Devices Use: None PT Evaluation-Current Subjective Patient lying supine in bed upon PT arrival, initially disagreeable to treatment, however nurse was able to convince her activity was beneficial. Patient eventually said that she did not want to get up because she has no pants. Patient draped appropriately with 2 gowns. Objective Patient Orientation: Person, Place, Time, Situation Attachments: Jackson Catheter, IV ROM/Strength ROM Lower Extremities WFLs all planes BLEs Strength Lower Extremities 5/5 all planes BLEs Sensory Vision: Functional Hearing: Functional Sensation Right Lower Extremit: Intact Sensation Left Lower Extremity: Intact Transfers Roll Left to Right (QC): 6 Sit to Lying (QC): 6 Lying to Sitting/Side of Bed(Q: 6 Sit to Stand (QC): 6 Chair/Idi-mg-Onqgo Xfer(QC): 4 Gait Does the Patient Walk?: Yes Mode of Locomotion: Walk Anticipated Mode of Locomotion: Walk Walk 10 feet (QC): 4 Walk 50 ft with 2 Turns(QC): 4 Walk 150 ft (QC): 4 Distance: 250 ft Gait Assistive Device: None Balance Sitting Static: Normal Sitting Dynamic: Normal Standing Static: Good Standing Dynamic: Good Assessment/Needs Patient demonstrates good overall bed mobility and transfers with SBA for transfers and complete [place] for bed mobility. Patient refuses AD, but is able to ambulate 250 feet with SBA and PT pushing IV pole. Patient on EOB with OT post treatment. Rehab Potential: Good PT Executive Cyber Leader Goals Fdc Goals PT Executive Cyber Leader Goals Time Frame: Sep 21, 2022 Roll Left & Right (QC): 6 Sit to Lying (QC): 6 Lying-Sitting on Side/Bed(QC): 6 Sit to Stand (QC): 6 Chair/Ijq-lo-Xweau Xfer(QC): 6 Toilet Transfer (QC): 6 Does the Patient Walk: Yes Walk 10 feet (QC): 6 Walk 50ft with 2 Turns (QC): 6 Walk 150 ft (QC): 6 PT Plan Problem List Problem List: Activity Tolerance, Functional Strength, Safety, Balance, Gait, Transfer, Bed Mobility, ROM Treatment/Plan Treatment Plan: Continue Plan of Care Treatment Plan: Bed Mobility, Education, Functional Activity Angélica, Functional Strength, Group Therapy, Gait, Safety, Therapeutic Exercise, Transfers Treatment Duration: Sep 21, 2022 Frequency: 6 times per week Safety Risks/Education Patient Education: Gait Training, Transfer Techniques Teaching Recipient: Patient Teaching Methods: Demonstration, Discussion Response to Teaching: Verbalize Understanding, Return Demonstration Time Time In: 1024 Time Out: 1034 DATE: Sep 07, 2022 Total Billed Treatment Time: 10 Total Billed Treatment Visit, ELISA CHÁVEZ PT Sep 07, 2022 11:41
[2022-09-07 11:43] VITALS: BP 133/60
--- NOTE | 2022-09-07 12:00 | Short Stay Summary-Hospitalist ---
History of Present Illness HPI/Chief Complaint CC: AMS with lethargy HPI: This is a 62yoWF clinic patient of Dr Santos who presents to the ER after her daughter called EMS due to AMS and lethargy. Patient was slightly hypoxic and CXR was suspicious for PNA so she was admitted for observation and placed on CAP. Currently she is doing much better and demanding to go home and refusing insulin and was able to walk down the cartwright. Source: patient Exam Limitations: no limitations Date Seen 09/07/22 Time Seen by a Provider: 11:00 Attending Physician Jose Santos MD PCP Admitting Physician: Cassandra Barney DO Attending Physician: Cassandra Barney DO Referring Physician Date of Admission Sep 06, 2022 at 21:35 Home Medications & Allergies Home Medications Reviewed patient Home Medication Reconciliation performed by pharmacy medication reconciliations combination technician and/or nursing. Patients Allergies have been reviewed. Allergies Allergies Coded Allergies gabapentin (Unverified Allergy, Unknown, 06/03/14) morphine (Unverified Allergy, Unknown, 06/03/14) Past Dyguhbt-Gtlnvn-Oasnus Hx Patient Social History Marrital Status: single Employed/Student: unemployed Tobacco Use?: No Smoking Status: Never a Smoker Smokeless Tobacco Frequency: Never a User Use of E-Cig and/or Vaping dev: Yes Use of E-Cig and/or Vaping Andrews: Never a User Substance use?: No Alcohol Use?: No Pt feels they are or have been: No Immunizations Up To Date Date of Influenza Vaccine: Apr 16, 2014 First/Initial COVID19 Vaccinat: 2020 Second COVID19 Vaccination Rey: 2020 Tetanus Booster (TDap): More Than 5 Years Hepatitis A: No Hepatitis B: No Date of Pneumonia Vaccine: Apr 18, 2014 Seasonal Allergies Seasonal Allergies: Yes (environmental) Current Status status: No status: No Advance Directives: No Communicates: Verbally Primary Language: Martiniquais Preferred Spoken Language: Italian Implanted or Applied Medical D: None Past Medical History Surgeries: Abdominal, Gallbladder, Orthopedic, Tonsillectomy Currently Using CPAP: No Currently Using BIPAP: No Hypertension BELT BUILDER History: Menopausal HIV/AIDS: No UTI-Chronic Gastrointestinal Bleed, Chronic Diarrhea Arthritis, Fibromyalgia Diabetes, Non-Insulin dep Tinnitis Loss of Vision: Denies Hearing Impairment: Denies Cervical Sleep Difficulties, Anxiety, Depression Blood Disorders: Yes Adverse Reaction/Blood Tranf: No Family Medical History No Pertinent Family Hx SOCIAL HISTORY: -SMOKING-DENIES USE -ETOH--HISTORY OF ABUSE, DENIES RECENT USE -DRUGS--EXTENSIVE HISTORY OF DRUG ABUSE, INCLUDING METHAMPHETAMINES, AND PRESCRIPTION DRUGS ESPECIALLY OPIATES AND BENZODIAZEPINES. HAS HISTORY OF BENZODIAZEPINE WITHDRAWL. PAST SURGICAL HISTORY: -GASTRIC BYPASS -LEFT WRIST/FOREARM FX WITH EXTERNAL FIXATION -CHOLECYSTECTOMY -BILATERAL TUBAL LIGATION. Review of Systems Constitutional: see HPI, malaise, weakness Physical Exam Physical Exam Vital Signs Vital Signs - First Documented 09/06/22 09/06/22 09/06/22 09/06/22 18:55 19:17 21:27 21:45 Temp 37.1 Pulse 113 Resp 20 B/P (MAP) 109/72 (84) Pulse Ox 97 O2 Delivery Room Air O2 Flow Rate 2.00 Capillary Refill : Height, Weight, BMI Height: 5'7.00" Weight: 253lbs. 0.0oz. [id number]; 33.13 BMI Method:Stated General Appearance: No Apparent Distress, Chronically ill HEENT: PERRL/EOMI, Pharynx Normal, Other (Dry mucous membranes) Neck: Normal Inspection, Supple Respiratory: Lungs Clear, No Accessory Muscle Use, No Respiratory Distress, Decreased Breath Sounds Cardiovascular: No Edema, No Gallop, No JVD, No Murmur, Tachycardia Gastrointestinal: Normal Bowel Sounds, No Organomegaly, No Pulsatile Mass, Non Tender, Soft Extremity: Normal Inspection, Normal Range of Motion Neurologic/Psychiatric: Alert (To voice), No Motor/Sensory Deficits, line repairer II-XII Norm as Tested, Disoriented Results Results/Procedures Labs Laboratory Tests 09/06/22 18:55 09/07/22 05:36 Patient resulted labs reviewed. Short Stay Diagnosis Discharge Diagnosis-Short Stay Admission Diagnosis AMS Lethargy Hypoxia Early PNA DM HTN Final Discharge Diagnosis AMS Lethargy Hypoxia Early PNA DM HTN Conclusion Plan MD CASSANDRA Guadalupe DO Sep 07, 2022 12:00
--- NOTE | 2022-09-07 12:00 | Occupational Therapy Eval ---
OT Evaluation-General/PLF Medical Diagnosis Admission Date Sep 06, 2022 at 21:35 Medical Diagnosis: Pneumonia, sepsis, fall Onset Date: Sep 06, 2022 Therapy Diagnosis Therapy Diagnosis: Weakness Height/Weight Height (Feet): 5 Height (Inches): 7.00 Weight (Pounds): 253 Weight (Ounces): 0.0 Precautions Precautions/Isolations: Fall Prevention, Standard Precautions Weight Bear Status Weight Bearing Restriction: Weight Bearing/Tolerated Referral Physician: Dr. Barney Referral Reason: Activity Tolerance, Self Care, Evaluation/Treatment, Strengthening/ROM Medical History Pertinent Medical History: Arthritis, DM, HTN Additional Medical History Gallbladder, abdominal surgery, gastric bypass, left wrist/forearm surgery Social History Home: Apartment Current Living Status: Alone (Pt. has daughter that assists her as needed) Entry Into Home: Elevator ADL-Prior Level of Function SCALE: Activities may be completed with or without assistive devices. 2-Ypfeemviya-gbbzndl completes the activity by him/herself with no assistance from a helper. 5-Set-up or Clean-up Assistance-helper sets up or cleans up; patient completes activity. [place] assists only prior to or following the activity. 4-Supervision or Touching Assistance-helper provides verbal cues and/or touching/steadying and/or contact guard assistance as patient completes activity. Assistance may be provided throughout the activity or intermittently. 3-Partial/Moderate Assistance-helper does LESS THAN HALF the effort. [place] lifts, holds or supports trunk or limbs, but provides less than half the effort. 2-Substantial/Maximal Assistance-helper does MORE THAN HALF the effort. [place] lifts or holds trunk or limbs and provides more than half the effort. 9-Rcmjzqhja-xhnxzv does ALL the effort. Patient does none of the effort to complete the activity. Or, the assistance of 2 or more helpers is required for the patient to complete the activity. If activity was not attempted, code reason: 7-Patient Refused. 9-Not Applicable-not attempted and the patient did not perform the activity before the current illness, exacerbation or injury. 10-Not Attempted due to Environmental Limitations-(lack of equipment, weather restraints, etc.). 88-Not Attempted due to Medical Conditions or Safety Concerns. ADL PLOF Comments Pt. is typically independent with all daily needs. She does not use an assistive device for ambulation. She currently is not driving due to her eyesight. Self Care: Independent Functional Cognition: Independent OT Current Status Subjective No pain reported but pt. states that she is tired. She declines showering and states, "I would like to wait until I get home." Appearance Pt. is up ambulating in hallway upon first presentation. She indicates no LOB and is not using a walker. Mental Status/Objective Patient Orientation: Person, Place, Time, Situation ADL-Treatment Eating (QC): 6 On/Off Footwear (QC): 6 Other Treatments Pt. currently has catheter and declines needing to toilet for BM. She is able to doff/don slipper socks independently, and does so twice so she can don clean ones after her walk. Pt. is given items for teeth brushing but states that she will do this later. She is able to stand with no LOB noted. Demonstrates appropriate UE mobility. Reports independence with eating. Pt. states that she is hoping to discharge tomorrow. Would like to wait for shower until then. Pt. is able to transfer herself independently into bed into supine position, and position self as needed. Pt. warrants no further OT services at this time. Education OT Patient Education: Correct positioning, Modified ADL techniques, Purpose of tx/functional activities, Reviewed precautions, Rehab process Teaching Recipient: Patient Teaching Methods: Demonstration, Discussion Response to Teaching: Verbalize Understanding, Return Demonstration OT Agent Goals Detention Goals Time Frame: Sep 07, 2022 Additional Goals: 2-Verbalize Understanding 1=Demonstrate adherence to instructed precautions during ADL tasks. 2=Patient will verbalize/demonstrate understanding of assistive devices/modifications for ADL. 3=Patient will improve strength/tolerance for activity to enable patient to perform ADL's. Pt. demonstrates independence with mobility without use of adaptive device. Pt. demonstrates ability to independently reach/get to feet with good flexibility. She indicates independence with feeding/grooming. No further goals or treatment needed at this time. OT Education/Plan Problem List/Assessment Assessment: No Skilled OT Needs ID'd Discharge Recommendations Plan/Recommendations: Discontinue OT Target Placement Home with daughter's assist as needed, as reported by pt. Treatment Plan/Plan of Care Treatment,Training & Education: Yes Plan of Care: OTHER Treatment Duration: Sep 07, 2022 Frequency: 1 time per week Rehab Potential: Good Time Start Time: 10:34 Stop Time: 10:52 DATE: Sep 07, 2022 Total Time Billed (hr/min): 18 Billed Treatment Time 1, EVM x 18minutes Discharge OT services TERESITA DALY OT Sep 07, 2022 12:00
[2022-09-07] MEDS ORDERED: AZIT250T12 PO (12:03)
[2022-09-07 13:35] VITALS: BP 133/60
[2022-09-07] MEDS ORDERED: AZITHROMYCIN INJECTION 500 MG in NS (IVPB) 250 ML IV ONE (21:00)
[2022-09-07] MEDS ORDERED: cefTRIAXone 1 GM PRE-MIX 50 ML IV SCH (21:00)
[2022-09-08] MEDS ORDERED: AZITHROMYCIN 250 MG TAB (ZITHROMAX) PO SCH (21:00)
== END 2022-09-07 12:02 | disposition home or self-care (01) ==
LOC: EDUNIT# 18:49 → ER 18:51 → UNDOADMOB 21:35 → 4TH 21:35 → UNDODISOB 09-07 12:02
PROVIDERS: ADMIT Internal Medicine; ATTEND Internal Medicine
DX: R41.82 Altered mental status, unspecified (principal); R53.83 Other fatigue; R09.02 Hypoxemia; J18.9 Pneumonia, unspecified organism; E11.9 Type 2 diabetes mellitus without complications; R74.02 Elevation of levels of lactic acid dehydrogenase [LDH]; N39.0 Urinary tract infection, site not specified; I10 Essential (primary) hypertension; Z79.84 Long term (current) use of oral hypoglycemic drugs; Z20.822 Contact with and (suspected) exposure to COVID-19
CPT/HCPCS: 36600; 51702; 70450; 71045 ×2; 80053 ×2; 80306; 81000; 82010; 82150; 82805; 82947; 83605; 83690; 85025 ×2; 85610; 85730; 87040; 87077; 87088; 87636; 93005; 94640; 94760; 96372; 97162; 97166; 99284; G0378; 36415

== ENCOUNTER 2023-01-26 06:54 | Observation (INO) | payer MEDICARE ==
[~2023-01-26] VITALS: Ht 170 cm; Wt 95.9 kg
[~2023-01-26 06:54] MED LIST changes: +AZIT250T12 PO; -LOSA100T57 PO; +LOSA100T58 PO
[2023-01-26 07:10] LABS: BASOPHILS % (AUTO) 1 % (0-10); EOSINOPHILS # (AUTO) 0.2 10^3/uL (0.0-0.3); EOSINOPHILS % (AUTO) 5 % (0-10); HEMATOCRIT 38 % (35-52); HEMOGLOBIN 12.3 g/dL (11.5-16.0); LYMPHOCYTES # (AUTO) 1.1 10^3/uL (1.0-4.0); LYMPHOCYTES % (AUTO) 24 % (12-44); MEAN CORPUSCULAR HEMOGLOBIN 30 pg (25-34); MEAN CORPUSCULAR HGB CONC 32 g/dL (32-36); MEAN CORPUSCULAR VOLUME 92 fL (80-99); MEAN PLATELET VOLUME 11.1 fL (9.0-12.2); MONOCYTES # (AUTO) 0.4 10^3/uL (0.0-1.0); MONOCYTES % (AUTO) 9 % (0-12); NEUTROPHILS # (AUTO) 2.7 10^3/uL (1.8-7.8); NEUTROPHILS % (AUTO) 61 % (42-75); PLATELET COUNT 219 10^3/uL (130-400); WHITE BLOOD COUNT 4.4 10^3/uL (4.3-11.0)
[2023-01-26 07:12] LABS: ABG BASE EXCESS -3.9 MMOL/L (-2.5-2.5); ABG OXYGEN SATURATION 93 % (94-100); ABG PCO2 40 MMHG (35-45); ABG PO2 67 MMHG (79-93); ABG TCO2 22.4 MMOL/L (21.0-31.0)
--- NOTE | 2023-01-26 07:12 | ED General ---
General Chief Complaint: Overdose Stated Complaint: OVERDOSE Nursing Triage Note: ARRIVED VIA EMS FROM HOME. LAST WELL KNOWN TIME WAS 1600 YESTERDAY. DRE CAME HOME AT MIDNIGHT AND PT WAS ACTING "WEIRD". X2 BENADRYL BOTTLES FOUND ON THE FLOOR UNKNOWN AMT GONE. WAS PRESCRIBED AMBIEN YESTERDAY BUT BOTTLE WAS NOT FOUND. PRESCRIBED METORMIN BOTTLE ALSO IN HOUSEHOLD. BLOOD SUGAR ON SCENE WAS 142. PT ALERT TO NAME AND DATE OF ONLY. EYES OPEN. EMS REPORTS PT TOLD THEM SHE WAS TIRED AND WANTED TO SLEEP WAS THE REASON WHY SHE TOOK THE MEDS. PT TELLS US SHE HAS ALLERGIES. Source of Information: Patient, EMS Exam Limitations: Physical Impairments History of Present Illness Date Seen by Provider: Jan 26, 2023 Time Seen by Provider: 06:55 Initial Comments Here by EMS with report of possible overdose. Last known well time was 1600 yesterday. Dre got home at around midnight and noted the patient was not acting right. Did note to Benadryl bottles that were open and then had an unknown amount of pills missing. EMS reports the grandson called after the patient was trying to take more Benadryl and continued to remain confused. Also patient was prescribed 30 Ambien 10 mg tablets yesterday and that bottle and pills are missing now and it is believed that she well. EMS reports normal vital signs in the field except patient did become hypoxic when she fell asleep in route. O2 sats dropped into the upper 80s during that timeframe but improved when they woke her back up. EMS reports medications for blood sugar at the scene including metformin and glyburide and note her blood sugar was 140s. Patient does follow simple commands and states that she took Benadryl for allergies but then does not remember what she said. She has drooping eyelids and appears quite drowsy but is currently protecting her airway but otherwise unable to provide further info. Timing/Duration: 12 Hours Severity: Moderate, Severe Associated Systoms: Other (Drowsiness) Allergies and Home Medications Allergies Coded Allergies: gabapentin (Unverified Allergy, Unknown, 06/03/14) morphine (Unverified Allergy, Unknown, 06/03/14) Patient Home Medication List Home Medication List Reviewed: Yes Acetaminophen (Tylenol Extra Strength) 500 Mg Tablet, 1,000 MG PO Q8H PRN for PAIN-MILD (1-4), (Reported) Entered as Reported by: TIMBO TORIBIO on 09/13/21915 Amlodipine Besylate (Amlodipine Besylate) 5 Mg Tablet, 5 MG PO DAILY, (Reported) Entered as Reported by: BLAIR YANEZ on 08/03/18 120 Azithromycin (Azithromycin) 250 Mg Tablet, 250 MG PO HS Prescribed by: LEANN CALLE on 09/07/22 1203 Baclofen (Baclofen) 20 Mg Tablet, 20 MG PO TID, (Reported) Entered as Reported by: BLAIR YANEZ on 04/18/16921 Diphenhydramine HCl (Benadryl Allergy) 25 Mg Tablet, 25-50 MG PO Q6H PRN for ALLERGY SYMPTOMS, (Reported) Entered as Reported by: TIMBO TORIBIO on 09/13/21915 Doxepin HCl (Doxepin HCl) 100 Mg Capsule, 100 MG PO TID, (Reported) Entered as Reported by: TIMBO TORIBIO on 09/13/21915 Glimepiride (Glimepiride) 4 Mg Tablet, 4 MG PO BID, (Reported) Entered as Reported by: BLAIR YANEZ on 04/18/16921 Lorazepam (Ativan) 2 Mg Tablet, 2 MG PO BID, (Reported) Entered as Reported by: TIMBO TORIBIO on 09/13/21915 Lorazepam (Ativan) 2 Mg Tablet, 1 MG PO 1200, (Reported) Entered as Reported by: TIMBO TORIBIO on 09/13/21915 Meloxicam (Meloxicam) 15 Mg Tablet, 15 MG PO DAILY, (Reported) Entered as Reported by: TIMBO TORIBIO on 09/13/21915 Metformin HCl (Metformin HCl) 500 Mg Tablet, 500 MG PO BID, (Reported) Entered as Reported by: TIMBO TORIBIO on 09/13/21915 Montelukast Sodium (Montelukast Sodium) 10 Mg Tablet, 10 MG PO HS, (Reported) Entered as Reported by: TIMBO TORIBIO on 09/13/21915 Pioglitazone HCl (Pioglitazone HCl) 30 Mg Tablet, 30 MG PO DAILY, (Reported) Entered as Reported by: BLAIR YANEZ on 04/18/16921 Triamcinolone Acet (Triamcinolone Acetonide 0.1% Cream) 15 Gm Cr, TOP BID PRN for RASH/IRRITATION, (Reported) Entered as Reported by: BLAIR YANEZ on 08/03/18 1157 Zolpidem Tartrate (Ambien) 10 Mg Tablet, 10 MG PO HS PRN for SLEEP, (Reported) Entered as Reported by: TIMBO TORIBIO on 09/13/21 0916 Review of Systems Review of Systems Constitutional: No chills, No fever Psychiatric/Neurological: See HPI Of systems limited due to altered mental status no obvious vomiting, fever or diarrhea Past Lezckkp-Zrnceg-Bhedgk Hx Patient Social History Tobacco Use?: No Substance use?: No Alcohol Use?: No Immunizations Up To Date Tetanus Booster (TDap): Unknown First/Initial COVID19 Vaccinat: 2020 Second COVID19 Vaccination Rey: 2020 Third COVID19 Vaccination Date: 2021 Seasonal Allergies Seasonal Allergies: Yes (environmental) Past Medical History Surgery/Hospitalization HX: N/A Surgeries: Yes (GASTRIC BYPASS/LEFT WRIST FX) Abdominal, Gallbladder, Orthopedic, Tonsillectomy Respiratory: No Currently Using CPAP: No Currently Using BIPAP: No Cardiac: Yes Hypertension Neurological: Yes 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 Disorders: No 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 Disorders: 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 HIV/AIDS: No UTI-Chronic Gastrointestinal: Yes (SIDE EFFECTS FROM GASTRIC BYPASS) Gastrointestinal Bleed, Chronic Diarrhea Musculoskeletal: Yes (lt wrist with external imobilizer hardware) Arthritis, Fibromyalgia Endocrine: Yes Diabetes, Non-Insulin dep Tinnitis Loss of Vision: Denies Hearing Impairment: Denies Cancer: No Cervical Psychosocial: Yes Sleep Difficulties, Anxiety, Depression Integumentary: Yes (chronic skin rash) Blood Disorders: Yes Adverse Reaction/Blood Tranf: No Family Medical History Reviewed Nursing Family Hx No Pertinent Family Hx SOCIAL HISTORY: -SMOKING-DENIES USE -ETOH--HISTORY OF ABUSE, DENIES RECENT USE -DRUGS--EXTENSIVE HISTORY OF DRUG ABUSE, INCLUDING METHAMPHETAMINES, AND PRESCRIPTION DRUGS ESPECIALLY OPIATES AND BENZODIAZEPINES. HAS HISTORY OF BENZODIAZEPINE WITHDRAWL. PAST SURGICAL HISTORY: -GASTRIC BYPASS -LEFT WRIST/FOREARM FX WITH EXTERNAL FIXATION -CHOLECYSTECTOMY -BILATERAL TUBAL LIGATION. Physical Exam Vital Signs Vital Signs - First Documented 01/26/23 06:57 Temp 36.0 Pulse 97 Resp 16 B/P (MAP) 136/74 (94) Pulse Ox 93 Capillary Refill : Height, Weight, BMI Height: 5'7.00" Weight: 253lbs. 0.0oz. 114.017862dm; 31.00 BMI Method:Stated General Appearance: No Apparent Distress, Other (Very drowsy appearing) HEENT: Pharynx Normal, Other (Pinpoint bilateral) Neck: Non Tender, Supple Respiratory: Lungs Clear, Normal Breath Sounds Cardiovascular: Regular Rate, Rhythm, No Murmur Gastrointestinal: Non Tender, Soft Back: Normal Inspection, No CVA Tenderness, No Vertebral Tenderness Extremity: Non Tender, No Calf Tenderness Neurologic/Psychiatric: Other (Seen and answers few questions and follows simple commands. Knows name and where she is at but otherwise unable to retell story or provide further info) Skin: Normal Color, Warm/Dry Progress/Results/Core Measures Suspected Sepsis SIRS Temperature: Pulse: 97 Respiratory Rate: 16 Laboratory Tests 01/26/23 07:07: White Blood Count 4.4 Blood Pressure 136 /74 Mean: 94 Laboratory Tests 01/26/23 07:07: Creatinine 0.74, Platelet Count 219, Total Bilirubin 0.3 Results/Orders Lab Results Laboratory Tests Test 01/26/23 07:07 01/26/23 07:09 01/26/23 07:18 01/26/23 07:30 Range/Units White Blood Count 4.4 4.3-11.0 10^3/uL Red Blood Count 4.15 3.80-5.11 10^6/uL Hemoglobin 12.3 11.5-16.0 g/dL Hematocrit 38 35-52 % Mean Corpuscular Volume 92 80-99 fL Mean Corpuscular Hemoglobin 30 25-34 pg Mean Corpuscular Hemoglobin Concent 32 32-36 g/dL Red Cell Distribution Width 13.9 10.0-14.5 % Platelet Count 219 130-400 10^3/uL Mean Platelet Volume 11.1 9.0-12.2 fL Immature Granulocyte % (Auto) 1 % Neutrophils (%) (Auto) 61 42-75 % Lymphocytes (%) (Auto) 24 12-44 % Monocytes (%) (Auto) 9 0-12 % Eosinophils (%) (Auto) 5 0-10 % Basophils (%) (Auto) 1 0-10 % Neutrophils # (Auto) 2.7 1.8-7.8 10^3/uL Lymphocytes # (Auto) 1.1 1.0-4.0 10^3/uL Monocytes # (Auto) 0.4 0.0-1.0 10^3/uL Eosinophils # (Auto) 0.2 0.0-0.3 10^3/uL Basophils # (Auto) 0.0 0.0-0.1 10^3/uL Immature Granulocyte # (Auto) 0.0 0.0-0.1 10^3/uL Sodium Level 142 135-145 MMOL/L Potassium Level 4.2 3.6-5.0 MMOL/L Chloride Level 112 H 98-107 MMOL/L Carbon Dioxide Level 19 L 21-32 MMOL/L Anion Gap 11 5-14 MMOL/L Blood Urea Nitrogen 13 7-18 MG/DL Creatinine 0.74 0.60-1.30 MG/DL Estimat Glomerular Filtration Rate 90 BUN/Creatinine Ratio 18 Glucose Level 209 H 70-105 MG/DL Calcium Level 8.5 8.5-10.1 MG/DL Corrected Calcium 8.8 8.5-10.1 MG/DL Magnesium Level 2.1 1.6-2.4 MG/DL Total Bilirubin 0.3 0.1-1.0 MG/DL Aspartate Amino Transf (AST/SGOT) 11 5-34 U/L Alanine Aminotransferase (ALT/SGPT) 13 0-55 U/L Alkaline Phosphatase 66 40-136 U/L C-Reactive Protein High Sensitivity 0.05 0.00-0.50 MG/DL Total Protein 6.2 L 6.4-8.2 GM/DL Albumin 3.6 3.2-4.5 GM/DL Salicylates Level < 5.0 L 5.0-20.0 MG/DL Acetaminophen Level < 10 L 10-30 UG/ML Serum Alcohol < 10 <10 MG/DL Blood Gas Puncture Site r radial Blood Gas Patient Temperature 36.0 Arterial Blood pH 7.34 *L 7.37-7.43 Arterial Blood Partial Pressure CO2 40 35-45 MMHG Arterial Blood Partial Pressure O2 67 L 79-93 MMHG Arterial Blood HCO3 21 L 23-27 MMOL/L Arterial Blood Total CO2 22.4 21.0-31.0 MMOL/L Arterial Blood Oxygen Saturation 93 L 94-100 % Arterial Blood Base Excess -3.9 L -2.5-2.5 MMOL/L Luis A Test YES-POS Blood Gas Ventilator Setting NO Blood Gas Inspired Oxygen Glucometer 183 H 70-110 MG/DL Urine Color YELLOW Urine Clarity SL CLOUDY Urine pH 5.5 5-9 Urine Specific [place] >=1.030 1.016-1.022 Urine Protein TRACE H NEGATIVE Urine Glucose (UA) TRACE H NEGATIVE Urine Ketones NEGATIVE NEGATIVE Urine Nitrite NEGATIVE NEGATIVE Urine Bilirubin 1+ H NEGATIVE Urine Urobilinogen 0.2 < = 1.0 MG/DL Urine Leukocyte Esterase NEGATIVE NEGATIVE Urine RBC (Auto) 1+ H NEGATIVE Urine RBC NONE /HPF Urine WBC RARE /HPF Urine Squamous Epithelial Cells NONE /HPF Urine Crystals NONE /LPF Urine Bacteria TRACE /HPF Urine Casts PRESENT /LPF Urine Hyaline Casts 10-25 H /LPF Urine Mucus NEGATIVE /LPF Urine Culture Indicated NO Urine Opiates Screen NEGATIVE NEGATIVE Urine Oxycodone Screen NEGATIVE NEGATIVE Urine Methadone Screen NEGATIVE NEGATIVE Urine Propoxyphene Screen NEGATIVE NEGATIVE Urine Barbiturates Screen NEGATIVE NEGATIVE Ur Tricyclic Antidepressants Screen POSITIVE H NEGATIVE Urine Phencyclidine Screen NEGATIVE NEGATIVE Urine Amphetamines Screen NEGATIVE NEGATIVE Urine Methamphetamines Screen NEGATIVE NEGATIVE Urine Benzodiazepines Screen NEGATIVE NEGATIVE Urine Cocaine Screen NEGATIVE NEGATIVE Urine Cannabinoids Screen NEGATIVE NEGATIVE My Orders Orders - FAITH PATEL MD Ed Iv/Invasive Line Start (01/26/23 07:03) Ekg Tracing (01/26/23 07:03) O2 (01/26/23 07:03) Monitor-Rhythm Ecg Trace Only (01/26/23 07:03) Straight Cath For Spec.-Adult (01/26/23 07:03) Chest 1 View, Ap/Pa Only (01/26/23 07:03) Acetaminophen (01/26/23 07:03) Alcohol (01/26/23 07:03) Arterial Blood Gas (01/26/23 07:02) Cbc With Automated Diff (01/26/23 07:03) Comprehensive Metabolic Panel (01/26/23 07:03) Hs C Reactive Protein (01/26/23 07:03) Drug Screen Stat (Urine) (01/26/23 07:03) Magnesium (01/26/23 07:03) Salicylate (01/26/23 07:03) Ua Culture If Indicated (01/26/23 07:03) Ekg Tracing (01/26/23 08:23) Ekg Tracing (01/26/23 08:36) Code/Resuscitation (01/26/23 08:45) Ed Admission (Communication) (01/26/23 08:45) Vital Signs/I&O 01/26/23 06:57 Temp 36.0 Pulse 97 Resp 16 B/P (MAP) 136/74 (94) Pulse Ox 93 Capillary Refill : Blood Pressure Mean: 94 Progress Note : Progress Note Seen and evaluated. IV by EMS. We will continue and complete 1 L normal saline bolus initiated by EMS. We will get labs including CBC, CMP, Tylenol, salicylate, alcohol as well as ABG. EKG and chest x-ray ordered. Monitor patient. Differential diagnosis includes mixed drug overdose, electrolyte abnormality, hypercarbia 0825: Chest x-ray shows no acute findings. CBC is normal. CMP does show slight elevation in glucose but otherwise nonconcerning. ABG reviewed and slightly low pH at 7.34 but normal CO2. UA nonconcerning but does show concentration and UDS is negative. Tylenol, salicylate and alcohol are negative. UDS shows tricyclics. Patient has been resting peacefully and we will initiate admission process to ICU. 0847: I did discuss the case with Dr. Calle who accepts patient to ICU, observation as on-call hospitalist for patient's primary care, Dr. Finley. ECG Initial ECG Impression Date: Jan 26, 2023 Initial ECG Impression Time: 07:10 Initial ECG Rate: 83 Initial ECG Rhythm: Normal Sinus Comment Sinus rhythm with normal axis. No evidence of ST elevation [place]. Interpreted by me. EKG : EKG Time: 08:26 Rate: 76 Rhythm: Normal Sinus Comment Sinus rhythm with normal axis. No evidence of ST elevation [place]. QT increased from 377 to 407 and QTc from 417 to 437 on this EKG. Diagnostic Imaging Diagonstic Imaging: Xray Plain Films/CT/US/NM/MRI: chest Comments [facility]. [place], [place] NAME: GERONIMO VARGAS [facility] REC#: [id number] PT STATUS: REG ER : 1960 PHYSICIAN: FAITH PATEL MD ADMIT DATE: 01/26/23/ER Draft Date of Exam:01/26/23 CHEST 1 VIEW, AP/PA ONLY INDICATION: Altered mental status, not acting right. TECHNIQUE: Single view chest at 8:02 AM. CORRELATION STUDY: 09/07/2022. FINDINGS: Limited depth of inspiration. Given this, the heart size is within normal limits. Vasculature is overall within normal limits. Minimal crowding at the lung bases. No significant infiltrate. Old left posterolateral rib fracture deformities. IMPRESSION: Negative appearing single view chest. Dictated on workstation # [id number] Dict: 01/26/23812 Trans: 01/26/23814 [id number] Interpreted by: YAMILE HANDY DO Electronically signed by: Departure Communication (Admissions) Time/Spoke to Admitting Phy: 08:47 Impression Primary Impression: Drug overdose Qualified Codes: T50.904A - Poisoning by unspecified drugs, medicaments and biological substances, undetermined, initial encounter Disposition: ADMITTED INPATIENT Condition: Stable Admissions Decision to Admit Reason: Admit from ER (General) Decision to Admit/Date: Jan 26, 2023 Time/Decision to Admit Time: 08:47 Departure-Patient Inst. Referrals: LUCIO FINLEY MD (PCP/Family) Primary Care Physician Patient Instructions: ALCOHOL AND SUBSTANCE ABUSE FAITH PATEL MD Jan 26, 2023 07:11
[2023-01-26 07:15] LABS: ABG PH 7.34 (7.37-7.43)
[2023-01-26 07:16] LABS: ALLENS TEST YES-POS; VENTILATOR NO
[2023-01-26 07:16] LABS: ALBUMIN 3.6 GM/DL (3.2-4.5); CHLORIDE 112 MMOL/L (98-107); POTASSIUM 4.2 MMOL/L (3.6-5.0); SODIUM 142 MMOL/L (135-145)
[2023-01-26 07:17] LABS: CALCIUM 8.5 MG/DL (8.5-10.1)
[2023-01-26 07:19] LABS: GLUCOSE 209 MG/DL (70-105); TOTAL PROTEIN 6.2 GM/DL (6.4-8.2)
[2023-01-26 07:20] LABS: BILIRUBIN,TOTAL 0.3 MG/DL (0.1-1.0); CARBON DIOXIDE 19 MMOL/L (21-32)
[2023-01-26 07:22] LABS: ALKALINE PHOSPHATASE 66 U/L (40-136); CREATININE SERUM 0.74 MG/DL (0.60-1.30); GFR ESTIMATED 90
[2023-01-26 07:23] LABS: ACETAMINOPHEN < 10 UG/ML (10-30)
[2023-01-26 07:24] LABS: BUN/CREATININE RATIO 18
[2023-01-26 07:25] LABS: MAGNESIUM 2.1 MG/DL (1.6-2.4); SALICYLATE < 5.0 MG/DL (5.0-20.0)
[2023-01-26 07:26] LABS: ALANINE AMINOTRANSFERASE 13 U/L (0-55)
[2023-01-26 07:56] LABS: CLARITY,URINE SL CLOUDY; COLOR,URINE YELLOW; PH,URINE 5.5 (5-9); PROTEIN,URINE TRACE (NEGATIVE)
[2023-01-26 07:57] LABS: BACTERIA,URINE TRACE /HPF; BILIRUBIN,URINE 1+ (NEGATIVE); GLUCOSE, URINE (UA) TRACE (NEGATIVE); KETONES,URINE NEGATIVE (NEGATIVE); LEUKOCYTE ESTERASE ,URINE NEGATIVE (NEGATIVE); NITRITE,URINE NEGATIVE (NEGATIVE); WBC,URINE RARE /HPF
[2023-01-26 08:04] LABS: AMPHETAMINE SCREEN, URINE NEGATIVE (NEGATIVE); BARBITURATE SCREEN URINE NEGATIVE (NEGATIVE); BENZODIAZEPINES SCREEN URINE NEGATIVE (NEGATIVE); CANNABINOID SCREEN, URINE NEGATIVE (NEGATIVE); COCAINE SCREEN URINE NEGATIVE (NEGATIVE); METHADONE STAT NEGATIVE (NEGATIVE); OPIATE SCREEN URINE NEGATIVE (NEGATIVE); OXYCODONE STAT NEGATIVE (NEGATIVE); PROPOXYPHENE STAT NEGATIVE (NEGATIVE); TRICYCLIC ANTIDEPRESSANTS SCRE POSITIVE (NEGATIVE)
--- NOTE | 2023-01-26 08:16 | Diagnostic Imaging Report ---
INDICATION: Altered mental status, not acting right. TECHNIQUE: Single view chest at 8:02 AM. CORRELATION STUDY: 09/07/2022. FINDINGS: Limited depth of inspiration. Given this, the heart size is within normal limits. Vasculature is overall within normal limits. Minimal crowding at the lung bases. No significant infiltrate. Old left posterolateral rib fracture deformities. IMPRESSION: Negative appearing single view chest. Dictated by: Dictated on workstation # [id number]
--- NOTE | 2023-01-26 08:47 | History & Physical-Hospitalist ---
History of Present Illness Source: RN/MD, old records Exam Limitations: clinical condition Date Seen 01/26/23 Time Seen by a Provider: 11:00 Attending Physician Jose Santos MD PCP Admitting Physician: Attending Physician: Referring Physician Date of Admission Home Medications & Allergies Home Medications Reviewed patient Home Medication Reconciliation performed by pharmacy medication reconciliations metal technician and/or nursing. Patients Allergies have been reviewed. Allergies Allergies Coded Allergies gabapentin (Unverified Allergy, Unknown, 06/03/14) morphine (Unverified Allergy, Unknown, 06/03/14) Past Gbaeamo-Xrhkhu-Xayrmr Hx Patient Social History Tobacco Use?: No Substance use?: No Alcohol Use?: No Immunizations Up To Date Date of Influenza Vaccine: Apr 16, 2014 First/Initial COVID19 Vaccinat: 2020 Second COVID19 Vaccination Rey: 2020 Tetanus Booster (TDap): More Than 5 Years Hepatitis A: No Hepatitis B: No Date of Pneumonia Vaccine: Apr 18, 2014 Seasonal Allergies Seasonal Allergies: Yes (environmental) Current Status Advance Directives: No Primary Language: Slovak Preferred Spoken Language: Slovak Past Medical History Surgeries: Abdominal, Gallbladder, Orthopedic, Tonsillectomy Currently Using CPAP: No Currently Using BIPAP: No 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 HAS HISTORY OF BENZODIAZEPINE WITHDRAWL. PAST SURGICAL HISTORY: -GASTRIC BYPASS -LEFT WRIST/FOREARM FX WITH EXTERNAL FIXATION -CHOLECYSTECTOMY -BILATERAL TUBAL LIGATION. Physical Exam Physical Exam Vital Signs Vital Signs - First Documented 01/26/23 06:57 Temp 36.0 Pulse 97 Resp 16 B/P (MAP) 136/74 (94) Pulse Ox 93 Capillary Refill : Height, Weight, BMI Height: 5'7.00" Weight: 253lbs. 0.0oz. 114.343672qp; 31.00 BMI Method:Stated Results Results/Procedures Labs Laboratory Tests 01/26/23 07:07 Patient resulted labs reviewed. LEANN CALLE DO Jan 26, 2023 08:47
[2023-01-26] MEDS ORDERED: HYDROmorphone INJECTION 2 MG/ML VIAL IV PRN (09:15)
[2023-01-26] MEDS ORDERED: NS IV 500 ML 500 ML IV PRN (09:15)
[2023-01-26] MEDS ORDERED: ACETAMINOPHEN 325 MG TABLET PO PRN (09:15)
[2023-01-26] MEDS ORDERED: LORazepam 0.5 MG TABLET PO PRN (09:15)
[2023-01-26] MEDS ORDERED: cloNIDine 0.1 MG TABLET PO PRN (09:15)
[2023-01-26] MEDS ORDERED: NS IV 1000 ML 1,000 ML IV SCH (09:15)
[2023-01-26] MEDS ORDERED: LACTULOSE SYRUP 10GM/15ML 30ML UDC PO PRN (09:15)
[2023-01-26] MEDS ORDERED: oxyCODONE IMMEDIATE RELEASE 5 MG TABLET PO PRN (09:15)
[2023-01-26] MEDS ORDERED: ONDANSETRON 4 MG (ZOFRAN) ORAL DISSOLVE TAB PO PRN (09:15)
[2023-01-26] MEDS ORDERED: BISACODYL 10 MG SUPPOSITORY PR PRN (09:15)
[2023-01-26] MEDS ORDERED: polyethylene glycoL POWDER 17 GM (MIRALAX) PACK PO PRN (09:15)
[2023-01-26] MEDS ORDERED: diphenhydrAMINE INJ 50 MG/ML VIAL IVP PRN (09:15)
[2023-01-26] MEDS ORDERED: ONDANSETRON 4 MG/2 ML (SDV) Z0FRAN IV PRN (09:15)
[2023-01-26] MEDS ORDERED: MILK OF MAGNESIA 400 MG/5 ML 30 ML UDC PO PRN (09:15)
[2023-01-26] MEDS ORDERED: ANTACID SUSPENSION 30 ML UDC PO PRN (09:15)
[2023-01-26] MEDS ORDERED: MELATONIN 3 MG TABLET PO PRN (09:15)
[2023-01-26] MEDS ORDERED: CALCIUM CARBONATE 500 MG CHEW TABLET PO PRN (09:15)
[2023-01-26] MEDS ORDERED: diphenhydrAMINE 25 MG TABLET PO PRN (09:15)
--- NOTE | 2023-01-26 09:35 | Tele-ICU Consult ---
Progress Note video rounds completed 62 y/o female with a hx of morbid obesity and s/p RNY/GBP Hx of DM Apparently has ambien metformin and benedrl at home. Brought in by EMS due to not acting normal suspects drug ingestion/overdose salicylates and etoh: neg Urine: positive for TCA Creatinine: 0.74 Glu 209 NA 142 K: 4.2 Cl: 112 Co2 19 IMP" possible drug overdose PLANLaboratory Tests 01/26/23 07:07: White Blood Count 4.4, Red Blood Count 4.15, Hemoglobin 12.3, Hematocrit 38, Mean Corpuscular Volume 92, Mean Corpuscular Hemoglobin 30, Mean Corpuscular Hemoglobin Concent 32, Red Cell Distribution Width 13.9, Platelet Count 219, Mean Platelet Volume 11.1, Immature Granulocyte % (Auto) 1, Neutrophils (%) (Auto) 61, Lymphocytes (%) (Auto) 24, Monocytes (%) (Auto) 9, Eosinophils (%) (Auto) 5, Basophils (%) (Auto) 1, Neutrophils # (Auto) 2.7, Lymphocytes # (Auto) 1.1, Monocytes # (Auto) 0.4, Eosinophils # (Auto) 0.2, Basophils # (Auto) 0.0, Immature Granulocyte # (Auto) 0.0, Sodium Level 142, Potassium Level 4.2, Chloride Level 112H, Carbon Dioxide Level 19L, Anion Gap 11, Blood Urea Nitrogen 13, Creatinine 0.74, Estimat Glomerular Filtration Rate 90, BUN/Creatinine Ratio 18, Glucose Level 209H, Calcium Level 8.5, Corrected Calcium 8.8, Magnesium Level 2.1, Total Bilirubin 0.3, Aspartate Amino Transf (AST/SGOT) 11, Alanine Aminotransferase (ALT/SGPT) 13, Alkaline Phosphatase 66, C-Reactive Protein High Sensitivity 0.05, Total Protein 6.2L, Albumin 3.6, Salicylates Level < 5.0L, Acetaminophen Level < 10L, Serum Alcohol < 10 01/26/23 07:09: Blood Gas Puncture Site r radial, Blood Gas Patient Temperature 36.0, Arterial Blood pH 7.34*L, Arterial Blood Partial Pressure CO2 40, Arterial Blood Partial Pressure O2 67L, Arterial Blood HCO3 21L, Arterial Blood Total CO2 22.4, Arterial Blood Oxygen Saturation 93L, Arterial Blood Base Excess -3.9L, Luis A Test YES-POS, Blood Gas Ventilator Setting NO, Blood Gas Inspired Oxygen 01/26/23 07:18: Glucometer 183H 01/26/23 07:30: Urine Color YELLOW, Urine Clarity SL CLOUDY, Urine pH 5.5, Urine Specific [place] >=1.030, Urine Protein TRACEH, Urine Glucose (UA) TRACEH, Urine Ketones NEGATIVE, Urine Nitrite NEGATIVE, Urine Bilirubin 1+H, Urine Urobilinogen 0.2, Urine Leukocyte Esterase NEGATIVE, Urine RBC (Auto) 1+H, Urine RBC NONE, Urine WBC RARE, Urine Squamous Epithelial Cells NONE, Urine Crystals NONE, Urine Bacteria TRACE, Urine Casts PRESENT, Urine Hyaline Casts 10-25H, Urine Mucus NEGATIVE, Urine Culture Indicated NO, Urine Opiates Screen NEGATIVE, Urine Oxycodone Screen NEGATIVE, Urine Methadone Screen NEGATIVE, Urine Propoxyphene Screen NEGATIVE, Urine Barbiturates Screen NEGATIVE, Ur Tricyclic Antidepressants Screen POSITIVEH, Urine Phencyclidine Screen NEGATIVE, Urine Amphetamines Screen NEGATIVE, Urine Methamphetamines Screen NEGATIVE, Urine Benzodiazepines Screen NEGATIVE, Urine Cocaine Screen NEGATIVE, Urine Cannabinoids Screen NEGATIVE : hydration and obs for neuro and resp status. Otherwise w/u negative I am monitoring this patient remotely from another state and not able to directly exam the patient. This review is based upon review of medical records, labs, xrays and video and consultation with the bedside RN Focused Exam Height, Weight, BMI Height: 5'7.00" Weight: 253lbs. 0.0oz. 114.231740ou; 31.00 BMI Method:Stated Labs Laboratory Tests 01/26/23 07:07 Results Results/Procedures Lab Laboratory Tests 01/26/23 07:07 Results Results/Procedures Labs Laboratory Tests 01/26/23 07:07 Patient resulted labs reviewed. Results Labs Labs Laboratory Tests 01/26/23 07:07: White Blood Count 4.4, Red Blood Count 4.15, Hemoglobin 12.3, Hematocrit 38, Mean Corpuscular Volume 92, Mean Corpuscular Hemoglobin 30, Mean Corpuscular Hemoglobin Concent 32, Red Cell Distribution Width 13.9, Platelet Count 219, Mean Platelet Volume 11.1, Immature Granulocyte % (Auto) 1, Neutrophils (%) (Auto) 61, Lymphocytes (%) (Auto) 24, Monocytes (%) (Auto) 9, Eosinophils (%) (Auto) 5, Basophils (%) (Auto) 1, Neutrophils # (Auto) 2.7, Lymphocytes # (Auto) 1.1, Monocytes # (Auto) 0.4, Eosinophils # (Auto) 0.2, Basophils # (Auto) 0.0, Immature Granulocyte # (Auto) 0.0, Sodium Level 142, Potassium Level 4.2, Chloride Level 112H, Carbon Dioxide Level 19L, Anion Gap 11, Blood Urea Nitrogen 13, Creatinine 0.74, Estimat Glomerular Filtration Rate 90, BUN/Creatinine Ratio 18, Glucose Level 209H, Calcium Level 8.5, Corrected Calcium 8.8, Magnesium Level 2.1, Total Bilirubin 0.3, Aspartate Amino Transf (AST/SGOT) 11, Alanine Aminotransferase (ALT/SGPT) 13, Alkaline Phosphatase 66, C-Reactive Protein High Sensitivity 0.05, Total Protein 6.2L, Albumin 3.6, Salicylates Level < 5.0L, Acetaminophen Level < 10L, Serum Alcohol < 10 01/26/23 07:09: Blood Gas Puncture Site r radial, Blood Gas Patient Temperature 36.0, Arterial Blood pH 7.34*L, Arterial Blood Partial Pressure CO2 40, Arterial Blood Partial Pressure O2 67L, Arterial Blood HCO3 21L, Arterial Blood Total CO2 22.4, Arterial Blood Oxygen Saturation 93L, Arterial Blood Base Excess -3.9L, Luis A Test YES-POS, Blood Gas Ventilator Setting NO, Blood Gas Inspired Oxygen 01/26/23 07:18: Glucometer 183H 01/26/23 07:30: Urine Color YELLOW, Urine Clarity SL CLOUDY, Urine pH 5.5, Urine Specific [place] >=1.030, Urine Protein TRACEH, Urine Glucose (UA) TRACEH, Urine Ketones NEGATIVE, Urine Nitrite NEGATIVE, Urine Bilirubin 1+H, Urine Urobilinogen 0.2, Urine Leukocyte Esterase NEGATIVE, Urine RBC (Auto) 1+H, Urine RBC NONE, Urine WBC RARE, Urine Squamous Epithelial Cells NONE, Urine Crystals NONE, Urine Bacteria TRACE, Urine Casts PRESENT, Urine Hyaline Casts 10-25H, Urine Mucus NEGATIVE, Urine Culture Indicated NO, Urine Opiates Screen NEGATIVE, Urine Oxycodone Screen NEGATIVE, Urine Methadone Screen NEGATIVE, Urine Propoxyphene Screen NEGATIVE, Urine Barbiturates Screen NEGATIVE, Ur Tricyclic Antidepressants Screen POSITIVEH, Urine Phencyclidine Screen NEGATIVE, Urine Amphetamines Screen NEGATIVE, Urine Methamphetamines Screen NEGATIVE, Urine Benzodiazepines Screen NEGATIVE, Urine Cocaine Screen NEGATIVE, Urine Cannabinoids Screen NEGATIVE KEENA STRANGE MD Jan 26, 2023 09:35
[2023-01-26] MEDS ORDERED: THIAMINE INJECTION 100 MG, FOLIC ACID INJECTION 1 MG, MULTIVITAMIN INJECTION 10 ML, MAG... IV SCH ×5 (10:00)
[2023-01-26] MEDS ORDERED: ENOXAPARIN 40 MG/0.4 ML SYRINGE SC SCH (10:00)
[2023-01-26] MEDS: IBUPROFEN 600 MG TABLET PO SCH ×2 (10:20→15:48)
--- NOTE | 2023-01-26 11:26 | Short Stay Summary-Hospitalist ---
History of Present Illness HPI/Chief Complaint CC: Benadryl OD with confusion and hypoxia HPI: This is a 62yoWF clinic patient of Dr Santos who has a h/o insomnia who apparently took too much Benadryl along with Ambien last night and had AMS so she was brought to ER from EMS and remained lethargic but now she is alert and doing well and IVF maintained. EKG Q 2 hours will be performed for 6 hours and if those show no abnl will DC home. Source: patient Exam Limitations: no limitations Date Seen 01/26/23 Time Seen by a Provider: 12:00 Attending Physician Jose Santos MD PCP Admitting Physician: Cassandra Barney DO Attending Physician: Cassandra Barney DO Referring Physician Date of Admission Jan 26, 2023 at 08:55 Home Medications & Allergies Home Medications Reviewed patient Home Medication Reconciliation performed by pharmacy medication reconciliations clean room technician and/or nursing. Patients Allergies have been reviewed. Allergies Allergies Coded Allergies gabapentin (Unverified Allergy, Unknown, 06/03/14) morphine (Unverified Allergy, Unknown, 06/03/14) Past Hwixrgp-Skcstl-Tcyafv Hx Patient Social History Marrital Status: single Employed/Student: retired Tobacco Use?: No Smoking Status: Former Smoker Use of E-Cig and/or Vaping dev: No Substance use?: No Additional substance use comme: DENIES Alcohol Use?: No Pt feels they are or have been: No Immunizations Up To Date Date of Influenza Vaccine: Apr 16, 2014 First/Initial COVID19 Vaccinat: 2020 Second COVID19 Vaccination Rey: 2020 Tetanus Booster (TDap): More Than 5 Years Hepatitis A: No Hepatitis B: No Date of Pneumonia Vaccine: Apr 18, 2014 Seasonal Allergies Seasonal Allergies: Yes (environmental) Current Status status: No status: No Advance Directives: No Communicates: Verbally Primary Language: South African Preferred Spoken Language: South African Is interpretation needed?: No Implanted or Applied Medical D: None Past Medical History Surgeries: Abdominal, Gallbladder, Orthopedic, Tonsillectomy Currently Using CPAP: No Currently Using BIPAP: No 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 HAS HISTORY OF BENZODIAZEPINE WITHDRAWL. PAST SURGICAL HISTORY: -GASTRIC BYPASS -LEFT WRIST/FOREARM FX WITH EXTERNAL FIXATION -CHOLECYSTECTOMY -BILATERAL TUBAL LIGATION. Review of Systems Constitutional: see HPI, malaise, weakness Physical Exam Physical Exam Vital Signs Vital Signs - First Documented 01/26/23 06:57 Temp 36.0 Pulse 97 Resp 16 B/P (MAP) 136/74 (94) Pulse Ox 93 Capillary Refill : Height, Weight, BMI Height: 5'7.00" Weight: 253lbs. 0.0oz. 114.723813yd; 33.18 BMI Method:Stated General Appearance: No Apparent Distress, Other (Very drowsy appearing) HEENT: Pharynx Normal, Other (Pinpoint bilateral) Neck: Non Tender, Supple Respiratory: Lungs Clear, Normal Breath Sounds Cardiovascular: Regular Rate, Rhythm, No Murmur Gastrointestinal: Non Tender, Soft Back: Normal Inspection, No CVA Tenderness, No Vertebral Tenderness Extremity: Non Tender, No Calf Tenderness Neurologic/Psychiatric: Alert, Oriented x3, Other (Seen and answers few questions and follows simple commands. Knows name and where she is at but otherwise unable to retell story or provide further info) Skin: Normal Color, Warm/Dry Results Results/Procedures Labs Laboratory Tests 01/26/23 07:07 Patient resulted labs reviewed. Short Stay Diagnosis Discharge Diagnosis-Short Stay Admission Diagnosis AMS from Benadryl OD non-purposeful Insomnia Final Discharge Diagnosis AMS from Benadryl OD non-purposeful Insomnia Conclusion Plan DC home Diagnosis/Problems Diagnosis/Problems (1) Overdose CASSANDRA BARNEY DO Jan 26, 2023 11:26
[2023-01-26 13:54] VITALS: BP 127/67
[2023-01-26] MEDS ORDERED: RT-ALBUTEROL SULF 2.5 MG/3 ML PRE-MIX VIAL INH PRN (14:15)
[2023-01-26] MEDS ORDERED: inSUlin ASPART 1 UNIT/0.01 ML (PER UNIT) SC SCH (16:00)
[2023-01-26] MEDS ORDERED: DOCUSATE SODIUM 100 MG CAPSULE PO SCH (21:00)
[2023-01-26] MEDS ORDERED: SENNOSIDES 8.6 MG (SENOKOT) TAB PO SCH (21:00)
[2023-01-27] MEDS ORDERED: POTASSIUM CHLORIDE 20 MEQ TABLET PO SCH (06:00)
[2023-01-27] MEDS ORDERED: MAGNESIUM 1 GM/100 ML IVPB 100 ML IV SCH (06:00)
[2023-01-27] MEDS ORDERED: POTASSIUM CL 10MEQ/50ML IVPB 50 ML IV SCH (06:00)
== END 2023-01-26 16:00 | disposition home or self-care (01) ==
LOC: EDUNIT# 06:54 → ER 06:55 → UNDOADMOB 08:55 → ICU 08:55 → UNDODISOB 16:00
PROVIDERS: ADMIT Internal Medicine; ATTEND Internal Medicine
DX: R41.82 Altered mental status, unspecified (principal); T45.0X1A Poisoning by antiallergic and antiemetic drugs, accidental (unintentional), initial encounter; G47.00 Insomnia, unspecified; E11.9 Type 2 diabetes mellitus without complications; Z87.891 Personal history of nicotine dependence; Z79.84 Long term (current) use of oral hypoglycemic drugs
CPT/HCPCS: 36600; 71045; 80053; 80306; 81000; 82805; 82947; 83735; 85025; 86141; 87081; 93005; 93041; 96366; 96372; 99284; G0480 ×3; 36415; 80320; 80329; G0378

== ENCOUNTER 2023-03-06 08:10 | Emergency (ER) | payer MEDICARE ==
[~2023-03-06] VITALS: Ht 170.1 cm; Wt 95.9 kg
[2023-03-06] MEDS ORDERED: NS IV 1000 ML 1,000 ML IV STA (08:31)
--- NOTE | 2023-03-06 08:31 | ED GI ---
General Chief Complaint: Abdominal/GI Problems Stated Complaint: VOMITING | NAUSEA Source of Information: Patient, Family (daughter) Exam Limitations: Other History of Present Illness Date Seen by Provider: Mar 06, 2023 Time Seen by Provider: 08:15 Initial Comments Patient is a 63-year-old female who presents to the emergency department with her daughter chief complaint nausea vomiting since approximately 1:30 AM. Daughter states that her mother has these "episodes" occasionally. She has been previously admitted overnight for same. Limited if any follow-up with primary care. History of diabetes, hypertension. She states she has had a cholecystectomy. The patient initially will not answer questions or participate in the interview. She prefers to moan and scream out. When I am able to get an answer from her she states she is not having any pain but she is nauseated. She has not taken anything for the symptoms. She lives at her daughter's apartment. She does have a mental health provider at [facility]. She also sees . Has not taken her medications this morning. Daughter states that she normally provides her with her medications because her "memory is bad". She did take baclofen last night before bed. Daughter also states she had a bottle of melatonin in her room that she was not aware of. Per review of medical record patient has had a couple of visits for similar complaints this year - CT head without contrast in August - no acute intracranial abnormality. Daughter denies that patient smokes, drinks or uses any recreational drugs. (review back to 2012 shows the patient has used cocaine, Meth, benzos and opiates - neg drug screens since that time). Timing/Duration: 4-6 Hours Severity/Quality: Severe Activities at Onset: Sleeping Associated Symptoms: Nausea/Vomiting, Weakness Allergies and Home Medications Allergies Coded Allergies: gabapentin (Unverified Allergy, Unknown, 06/03/14) morphine (Unverified Allergy, Unknown, 06/03/14) Patient Home Medication List Home Medication List Reviewed: Yes Acetaminophen (Tylenol Extra Strength) 500 Mg Tablet, 1,000 MG PO Q8H PRN for PAIN-MILD (1-4), (Reported) Entered as Reported by: TIMBO TORIBIO on 09/13/21 0916 Amlodipine Besylate (Amlodipine Besylate) 5 Mg Tablet, 5 MG PO DAILY, (Reported) Entered as Reported by: BLAIR YANEZ on 08/03/18 1209 Baclofen (Baclofen) 20 Mg Tablet, 20 MG PO TID, (Reported) Entered as Reported by: BLAIR YANEZ on 04/18/16921 Diphenhydramine HCl (Benadryl Allergy) 25 Mg Tablet, 25-50 MG PO Q6H PRN for ALLERGY SYMPTOMS, (Reported) Entered as Reported by: TIMBO TORIBIO on 09/13/21915 Doxepin HCl (Doxepin HCl) 100 Mg Capsule, 100 MG PO TID, (Reported) Entered as Reported by: TIMBO TORIBIO on 09/13/21915 Glimepiride (Glimepiride) 4 Mg Tablet, 4 MG PO BID, (Reported) Entered as Reported by: BLAIR YANEZ on 04/18/16921 Meloxicam (Meloxicam) 15 Mg Tablet, 15 MG PO DAILY, (Reported) Entered as Reported by: TIMBO TORIBIO on 09/13/21915 Metformin HCl (Metformin HCl) 500 Mg Tablet, 500 MG PO BID, (Reported) Entered as Reported by: TIMBO TORIBIO on 09/13/21915 Montelukast Sodium (Montelukast Sodium) 10 Mg Tablet, 10 MG PO HS, (Reported) Entered as Reported by: TIMBO TORIBIO on 09/13/21915 Pioglitazone HCl (Pioglitazone HCl) 30 Mg Tablet, 30 MG PO DAILY, (Reported) Entered as Reported by: BLAIR YANEZ on 04/18/16921 Triamcinolone Acet (Triamcinolone Acetonide 0.1% Cream) 15 Gm Cr, TOP BID PRN for RASH/IRRITATION, (Reported) Entered as Reported by: BLAIR YANEZ on 08/03/18 1157 Review of Systems Review of Systems Constitutional: see HPI Gastrointestinal: Denies Abdominal Pain; Nausea Other Comments HPI, ROS limited due to the patient not interacting with this provider Past Jkdcbwt-Qqfymp-Outpia Hx Patient Social History Tobacco Use?: No Use of E-Cig and/or Vaping dev: No Substance use?: No Alcohol Use?: No Pt feels they are or have been: No Immunizations Up To Date Tetanus Booster (TDap): Unknown Influenza Vaccine Up-to-Date: No; Not Current First/Initial COVID19 Vaccinat: 2020 Second COVID19 Vaccination Rey: 2020 Third COVID19 Vaccination Date: 2021 Seasonal Allergies Seasonal Allergies: Yes (environmental) Past Medical History Surgery/Hospitalization HX: niddm jose Surgeries: Yes (GASTRIC BYPASS/LEFT WRIST FX) Abdominal, Gallbladder, Orthopedic, Tonsillectomy Respiratory: No Currently Using CPAP: No Currently Using BIPAP: No Cardiac: Yes Hypertension Neurological: Yes 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 Disorders: No 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 Disorders: 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 HIV/AIDS: No UTI-Chronic Gastrointestinal: Yes (SIDE EFFECTS FROM GASTRIC BYPASS) Gastrointestinal Bleed, Chronic Diarrhea Musculoskeletal: Yes (lt wrist with external imobilizer hardware) Arthritis, Fibromyalgia Endocrine: Yes Diabetes, Non-Insulin dep Tinnitis Loss of Vision: Denies Hearing Impairment: Denies Cancer: No Cervical Psychosocial: Yes Sleep Difficulties, Anxiety, Depression Integumentary: Yes (chronic skin rash) Blood Disorders: Yes Adverse Reaction/Blood Tranf: No Family Medical History No Pertinent Family Hx SOCIAL HISTORY: -SMOKING-DENIES USE -ETOH--HISTORY OF ABUSE, DENIES RECENT USE -DRUGS--EXTENSIVE HISTORY OF DRUG ABUSE, INCLUDING METHAMPHETAMINES, AND PRESCRIPTION DRUGS ESPECIALLY OPIATES AND BENZODIAZEPINES. HAS HISTORY OF BENZODIAZEPINE WITHDRAWL. PAST SURGICAL HISTORY: -GASTRIC BYPASS -LEFT WRIST/FOREARM FX WITH EXTERNAL FIXATION -CHOLECYSTECTOMY -BILATERAL TUBAL LIGATION. Physical Exam Vital Signs Vital Signs - First Documented 03/06/23 03/06/23 08:20 09:23 Temp 35.8 Pulse 93 Resp 18 B/P (MAP) 203/102 (135) Pulse Ox 100 O2 Delivery Room Air O2 Flow Rate 2.00 Capillary Refill : Height/Weight/BMI Height: 5'7.00" Weight: 253lbs. 0.0oz. 114.500261sr; 33.18 BMI Method:Stated General Appearance: WD/WN, moderate distress, other (patient's shirt is covered in bilious vomit (bright yellow)) HEENT: PERRL/EOMI, other (dry oral mucosa) Neck: normal inspection Respiratory: lungs clear, normal breath sounds, no respiratory distress, no accessory muscle use Cardiovascular: regular rate, rhythm (HR 90) Gastrointestinal: soft, abnormal bowel sounds (hypoactive); No distended Neurologic/Psychiatric: alert, other (patient prefers to not make eye contact; moaning and shaking her head) Skin: warm/dry, pallor Progress/Results/Core Measures Results/Orders Lab Results Laboratory Tests Test 03/06/23 08:20 03/06/23 08:47 03/06/23 08:50 03/06/23 09:05 Range/Units White Blood Count 7.5 4.3-11.0 10^3/uL Red Blood Count 4.51 3.80-5.11 10^6/uL Hemoglobin 13.7 11.5-16.0 g/dL Hematocrit 41 35-52 % Mean Corpuscular Volume 91 80-99 fL Mean Corpuscular Hemoglobin 30 25-34 pg Mean Corpuscular Hemoglobin Concent 34 32-36 g/dL Red Cell Distribution Width 12.7 10.0-14.5 % Platelet Count 232 130-400 10^3/uL Mean Platelet Volume 11.5 9.0-12.2 fL Sodium Level 135 135-145 MMOL/L Potassium Level 4.6 3.6-5.0 MMOL/L Chloride Level 99 98-107 MMOL/L Carbon Dioxide Level 23 21-32 MMOL/L Anion Gap 13 5-14 MMOL/L Blood Urea Nitrogen 14 7-18 MG/DL Creatinine 0.81 0.60-1.30 MG/DL Estimat Glomerular Filtration Rate 81 BUN/Creatinine Ratio 17 Glucose Level 381 H 70-105 MG/DL Calcium Level 9.3 8.5-10.1 MG/DL Corrected Calcium 9.0 8.5-10.1 MG/DL Total Bilirubin 0.5 0.1-1.0 MG/DL Aspartate Amino Transf (AST/SGOT) 13 5-34 U/L Alanine Aminotransferase (ALT/SGPT) 15 0-55 U/L Alkaline Phosphatase 93 40-136 U/L Total Protein 7.3 6.4-8.2 GM/DL Albumin 4.4 3.2-4.5 GM/DL Lipase 20 8-78 U/L Salicylates Level < 5.0 L 5.0-20.0 MG/DL Acetaminophen Level < 10 L 10-30 UG/ML Serum Alcohol < 10 <10 MG/DL Ammonia 16 11-32 UMOL/L Glucometer 364 H 70-110 MG/DL Urine Color YELLOW Urine Clarity CLEAR Urine pH 6.5 5-9 Urine Specific [place] 1.010 L 1.016-1.022 Urine Protein NEGATIVE NEGATIVE Urine Glucose (UA) 3+ H NEGATIVE Urine Ketones 2+ H NEGATIVE Urine Nitrite NEGATIVE NEGATIVE Urine Bilirubin NEGATIVE NEGATIVE Urine Urobilinogen 0.2 < = 1.0 MG/DL Urine Leukocyte Esterase TRACE H NEGATIVE Urine RBC (Auto) NEGATIVE NEGATIVE Urine RBC NONE /HPF Urine WBC 0-2 /HPF Urine Squamous Epithelial Cells 0-2 /HPF Urine Crystals NONE /LPF Urine Bacteria TRACE /HPF Urine Casts NONE /LPF Urine Mucus NEGATIVE /LPF Urine Culture Indicated NO Urine Opiates Screen NEGATIVE NEGATIVE Urine Oxycodone Screen NEGATIVE NEGATIVE Urine Methadone Screen NEGATIVE NEGATIVE Urine Propoxyphene Screen NEGATIVE NEGATIVE Urine Barbiturates Screen NEGATIVE NEGATIVE Ur Tricyclic Antidepressants Screen NEGATIVE NEGATIVE Urine Phencyclidine Screen NEGATIVE NEGATIVE Urine Amphetamines Screen NEGATIVE NEGATIVE Urine Methamphetamines Screen NEGATIVE NEGATIVE Urine Benzodiazepines Screen NEGATIVE NEGATIVE Urine Cocaine Screen NEGATIVE NEGATIVE Urine Cannabinoids Screen NEGATIVE NEGATIVE My Orders Orders - DEJUAN OWUSU MD Ed Iv/Invasive Line Start (03/06/23 08:31) Cbc No Diff (03/06/23 08:31) Comprehensive Metabolic Panel (03/06/23 08:31) Lipase (03/06/23 08:31) Alcohol (03/06/23 08:31) Salicylate (03/06/23 08:31) Acetaminophen (03/06/23 08:31) Drug Screen Stat (Urine) (03/06/23 08:31) Ua Culture If Indicated (03/06/23 08:31) Accucheck Stat ONCE (03/06/23 08:31) Ns Iv 1000 Ml (Ns Iv 1000 Ml) (03/06/23 08:31) Ondansetron Injection (Ondansetron Inj (03/06/23 08:45) Ammonia (03/06/23 08:40) Chest 1 View, Ap/Pa Only (03/06/23 08:58) Metoclopramide Injection (Metoclopramide (03/06/23 11:30) Diphenhydramine Injection (Diphenhydram (03/06/23 11:30) Medications Given in ED Vital Signs/I&O 03/06/23 03/06/23 03/06/23 08:20 09:23 12:10 Temp 35.8 35.8 Pulse 93 94 Resp 18 18 B/P (MAP) 203/102 (135) 124/70 Pulse Ox 100 99 97 O2 Delivery Room Air Nasal Cannula Room Air O2 Flow Rate 2.00 Progress Progress Note #1: Time: 09:19 Progress Note Patient now starting to "clear" mentally. Able to tell KATY Kay (her nurse) that she believes she took too much melatonin last night. Struggles with insomnia. Progress Note #2: Time: 12:04 Progress Note Patient seen and evaluated by me. Evaluation today includes CBC, Chem-12, am monia level, UA, urine drug screen, serum alcohol, aspirin, Tylenol levels and chest x-ray. Pertinent physical exam findings well-developed well-nourished female in moderate distress, crying out, moaning, intermittently answering questions. She seems almost intoxicated. Heart is regular, lungs are clear. She has mild diffuse lower abdominal tenderness without involuntary guarding or rebound. She will follow commands. Pupils are normal, not pinpoint. Differential diagnosis includes intoxication on illicit substance, urinary tract infection, medication overdose/side effect Labs independently reviewed and interpreted by me. Her CBC is completely normal. Chem-12 remarkable only for an elevated glucose of 381. The patient is a known diabetic. Ammonia 16. Her toxicology is negative. Urinalysis is without infection. Chest x-ray is also without infiltrate. Patient is treated with a liter of IV fluids, normal saline. She is given 8 mg of Zofran and seems to have some improvement in her symptoms. When I went in to reevaluate her she had mild nausea, 10 of Reglan and 25 mg of Benadryl was provided. We called her daughter to come back and discuss findings with her. No clinical or objective findings to warrant further studies from the emergency department. I do not suspect acute stroke. She does not seem to be intoxicated on an illicit substance. It is possible she is having side effects from over taking melatonin from the night before. No evidence of infection to cause these mental status changes. Daughter is comfortable taking her home. We reiterated to the daughter and the patient that she needs outpatient follow-up to further identify the cause of these "episodes". I did speak with the daughter about early onset dementia. Patient verbalized understanding that she needs to go to a primary care doctor. Return precautions provided in both verbal and written format. All questions are sought and answered. Diagnostic Imaging Diagonstic Imaging: Xray Plain Films/CT/US/NM/MRI: chest Comments [facility] [place], [place] NAME: GERONIMO VARGAS [facility] REC#: [id number] PT STATUS: REG ER : 1960 PHYSICIAN: DEJUAN OWUSU MD ADMIT DATE: 03/06/23/ER Draft Date of Exam:03/06/23 CHEST 1 VIEW, AP/PA ONLY Indication: Altered mental status COMPARISON: 01/26/2023 FINDINGS: The lungs are clear. No failure, effusion or pneumothorax. Impression: Stable unremarkable frontal chest. Dictated on workstation # [id number] Dict: 03/06/2341 Trans: 03/06/2346 [facility] [id number] Interpreted by: ABBY PALAFOX Electronically signed by: Departure Impression Primary Impression: Altered mental status Qualified Codes: R41.0 - Disorientation, unspecified Additional Impression: Nausea and vomiting Qualified Codes: R11.2 - Nausea with vomiting, unspecified Disposition: 01 HOME, SELF-CARE Condition: Improved Departure-Patient Inst. Decision time for Depature: 12:05 Referrals: LUCIO FINLEY MD (PCP/Family) Primary Care Physician Patient Instructions: Delirium (Confusion) (DC), Nausea and Vomiting, Adult ED Add. Discharge Instructions: Continue your daily medications as prescribed. Do not take any extra medications without letting your daughter know. You absolutely need to call your doctors office today for a follow-up appointment first thing next week. They need to schedule you for some lung testing and possibly a sleep study. I would avoid taking any more melatonin. If you have any new, emergent or concerning symptoms please come back to the emergency room for reevaluation. Copy Copies To 1: LUCIO FINLEY MD, KATHRYN M MD Mar 06, 2023 08:31
[2023-03-06 08:36] LABS: HEMATOCRIT 41 % (35-52); HEMOGLOBIN 13.7 g/dL (11.5-16.0); MEAN CORPUSCULAR HEMOGLOBIN 30 pg (25-34); MEAN CORPUSCULAR HGB CONC 34 g/dL (32-36); MEAN CORPUSCULAR VOLUME 91 fL (80-99); MEAN PLATELET VOLUME 11.5 fL (9.0-12.2); PLATELET COUNT 232 10^3/uL (130-400); WHITE BLOOD COUNT 7.5 10^3/uL (4.3-11.0)
[2023-03-06 08:42] LABS: ALBUMIN 4.4 GM/DL (3.2-4.5); CHLORIDE 99 MMOL/L (98-107); POTASSIUM 4.6 MMOL/L (3.6-5.0); SODIUM 135 MMOL/L (135-145)
[2023-03-06 08:44] LABS: CALCIUM 9.3 MG/DL (8.5-10.1)
[2023-03-06 08:45] LABS: GLUCOSE 381 MG/DL (70-105); TOTAL PROTEIN 7.3 GM/DL (6.4-8.2)
[2023-03-06] MEDS ORDERED: ONDANSETRON INJECTION 4 MG/2 ML (SDV) IVP ONE (08:45)
[2023-03-06 08:46] LABS: CARBON DIOXIDE 23 MMOL/L (21-32)
[2023-03-06 08:47] LABS: BILIRUBIN,TOTAL 0.5 MG/DL (0.1-1.0)
[2023-03-06 08:49] LABS: ALKALINE PHOSPHATASE 93 U/L (40-136); CREATININE SERUM 0.81 MG/DL (0.60-1.30); GFR ESTIMATED 81
[2023-03-06 08:50] LABS: BUN/CREATININE RATIO 17
[2023-03-06 08:51] LABS: SALICYLATE < 5.0 MG/DL (5.0-20.0)
[2023-03-06 08:52] LABS: ALANINE AMINOTRANSFERASE 15 U/L (0-55); LIPASE 20 U/L (8-78)
[2023-03-06 09:08] LABS: ACETAMINOPHEN < 10 UG/ML (10-30)
[2023-03-06 09:33] LABS: BILIRUBIN,URINE NEGATIVE (NEGATIVE); CLARITY,URINE CLEAR; COLOR,URINE YELLOW; GLUCOSE, URINE (UA) 3+ (NEGATIVE); KETONES,URINE 2+ (NEGATIVE); NITRITE,URINE NEGATIVE (NEGATIVE); PH,URINE 6.5 (5-9); PROTEIN,URINE NEGATIVE (NEGATIVE)
[2023-03-06 09:34] LABS: AMPHETAMINE SCREEN, URINE NEGATIVE (NEGATIVE); BACTERIA,URINE TRACE /HPF; BARBITURATE SCREEN URINE NEGATIVE (NEGATIVE); CANNABINOID SCREEN, URINE NEGATIVE (NEGATIVE); COCAINE SCREEN URINE NEGATIVE (NEGATIVE); LEUKOCYTE ESTERASE ,URINE TRACE (NEGATIVE); METHADONE STAT NEGATIVE (NEGATIVE); OPIATE SCREEN URINE NEGATIVE (NEGATIVE); OXYCODONE STAT NEGATIVE (NEGATIVE); PROPOXYPHENE STAT NEGATIVE (NEGATIVE); SQUAMOUS EPITHELIAL CELL,UR 0-2 /HPF; TRICYCLIC ANTIDEPRESSANTS SCRE NEGATIVE (NEGATIVE); WBC,URINE 0-2 /HPF
--- NOTE | 2023-03-06 09:46 | Diagnostic Imaging Report ---
Indication: Altered mental status COMPARISON: 01/26/2023 FINDINGS: The lungs are clear. No failure, effusion or pneumothorax. Impression: Stable unremarkable frontal chest. Dictated by: Dictated on workstation # [id number]
[2023-03-06] MEDS ORDERED: METOCLOPRAMIDE INJ 10 MG/2 ML IVP ONE (11:30)
[2023-03-06] MEDS ORDERED: diphenhydrAMINE INJ 50 MG/ML VIAL IVP ONE (11:30)
[2023-03-06 12:10] VITALS: BP 124/70
== END 2023-03-06 12:17 | disposition home or self-care (01) ==
LOC: EDUNIT# 08:10 → ER 08:12
DX: R11.2 Nausea with vomiting, unspecified (principal); R41.82 Altered mental status, unspecified; E11.9 Type 2 diabetes mellitus without complications
CPT/HCPCS: 71045; 80053; 80306; 81000; 82140; 82947; 83690; 85027; 99284; G0480 ×3; 36415; 80320; 80329